=== PATIENT | male | born 1950 | race Caucasian/White ===

== ENCOUNTER 2017-11-12 20:16 | Inpatient (IN) | payer MEDICARE ==
--- NOTE | 2017-11-12 21:34 | PDOC.FPRHP ---
- History of Present Illness Chief Complaint: Defibrillation event, weakness History of Present Illness: This is a 67 year old male with PMH of CAD s/p 3V CABG, HLD, and atrial fibrillation that presents with generalized weakness. 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 Later this evening he was going to pull himself up onto his tractor and was unable to do so. He called his who was able to assist him and take him into the hospital. Earlier that morning, patient received a voicemail from [employer] stating that he had an event noted on his defibrillator monitor. Patient never felt the defibrillator fire and is uncertain of what the monitor recorded at that time. On his way to [facility] after feeling very weak, he received a call from the [employer] asking if he had sought care regarding the defibrillator event. They did not note any new events since that time. Patient had a brain CT performed at [facility] which showed a brain mass. Patient has never had imaging of his brain previously, so it is uncertain how long the mass has been present. There was no notable mass effect. Upon evaluation here at [facility] patient was back to baseline and no longer complaining of any weakness. He states that the weakness was never focal and he only had some light -headedness associated with the weakness. Of note, patient did have a CABG back in 2012 and was relatively asymptomatic at that time with the exception of some weakness. He currently denies any chest pain, shortness of breath, diaphoresis, or fever. Patient follows with Dr. Fontenot from a cardiac and primary care standpoint. He does not currently have a PCP. ED Course: Brain CT performed in outside ED. - Allergies/Adverse Reactions Allergies Allergy/AdvReac Type Severity Reaction Status Date / Time No Known Allergies Allergy Verified 11/12/17 22:59 - Home Medications Medication Instructions Recorded Confirmed Type Aspirin 325 mg PO DAILY 01/21/13 11/12/17 History Carvedilol [Coreg] 25 mg PO DAILY 01/21/13 11/12/17 History Lisinopril 5 mg PO DAILY 01/21/13 11/12/17 History Apixaban [Eliquis] 2.5 mg PO DAILY 11/12/17 11/12/17 History Furosemide [Lasix] 40 mg PO PRN PRN 11/12/17 11/12/17 History Lovastatin 10 mg PO HS 11/12/17 11/12/17 History - History PMHx: CANDACE, CAD s/p 3V CABG, Atrial fibrillation. HFrEF of 25-30% in 2013 PSHx: Defibrillator placement, CABG 3V (2012), Vasectomy, Polypectomy FHx: Early CAD on maternal and paternal side Social: Patient denies tobacco or drug use. He endorses drinking an occasional beer. - Review of Systems General: denies: fever/chills, weight/appetite/sleep changes, night sweats, fatigue Eyes: denies: eye pain, vision changes ENT: denies: nasal congestion, rhinorrhea Respiratory: reports: shortness of breath (with exertion of <40 yards), exercise intolerance. denies: cough, congestion Cardiovascular: reports: edema, orthopnea. denies: chest pain, palpitation, paroxysmal nocturnal dyspnea Gastrointestinal: denies: nausea, vomiting, diarrhea, constipation, abdominal pain Genitourinary: denies: dysuria, polyuria Skin: reports: rashes (lower extremities). denies: lesions, jaundice Musculoskeletal: denies: pain, tenderness, stiffness Neurological: reports: weakness. denies: numbness, syncope, seizure Psychological: denies: anxiety, depression - Vital signs BP: 126/94 HR: 100 RR: 18 Tmax: 98.7 G Pox: 96% on RA Wt: 167.83 kg - Physical Exam Constitutional: NAD, awake, alert and oriented, well developed HEENT: normocephalic and atraumatic, EOMI -HEENT: Conjunctival erythema, poor dentition Neck: supple Heart: no murmurs/rubs/gallops, pulses present -Heart: Irregularly irregular rhythm, 2+ pitting edema bilateral LE's to level of knees Lungs: CTAB, no respiratory distress, good air movement, no rales/rhonchi Abdomen: soft, non-tender, bowel sounds present Musculoskeletal: normal structure, ROM grossly normal Neurological: no focal deficit, CN II-XII intact -Skin: Stasis dermatitis Heme/Lymphatic: no unusual bruising or bleeding, no purpura Psychiatric: normal mood and affect, good judgment and insight, intact recent and remote memory FMR H&P: Results - Labs Lab results: BNP 526 Troponin 0.00-0.09 GFR 65 Glucose 250 BUN 24 Cr 1.16 Na 140 K 4.5 HCO3 27 WBC 8.5 Hg 14.0 Hct 42.0 Platelet 233 - Radiology Interpretation CT scan - head Status: report reviewed by me Additional comment: CT head without contrast performed in outside ED: 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 Differentials include central neurocytoma, meningioma, choroid plexus papilloma, and metastatic disease. Recommend nonemergent MRI brain with contrast to further evaluate. FMR H&P: A/P - Problem List (1) AICD problem Current Visit: Yes Status: Acute Code(s): Z95.810 - PRESENCE OF AUTOMATIC ( IMPLANTABLE) CARDIAC DEFIBRILLATOR (2) Atrial fibrillation Current Visit: Yes Status: Chronic Code(s): I48.91 - UNSPECIFIED ATRIAL FIBRILLATION (3) Brain mass Current Visit: Yes Status: Acute Code(s): G93.9 - DISORDER OF BRAIN, UNSPECIFIED (4) Chronic kidney disease (CKD), stage II (mild) Current Visit: Yes Status: Chronic Code(s): N18.2 - CHRONIC KIDNEY DISEASE, STAGE 2 (MILD) (5) CANDACE (obstructive sleep apnea) Current Visit: Yes Status: Chronic Code(s): G47.33 - OBSTRUCTIVE SLEEP APNEA (ADULT) (PEDIATRIC) (6) HLD (hyperlipidemia) Current Visit: Yes Status: Chronic Code(s): E78.5 - HYPERLIPIDEMIA, UNSPECIFIED (7) CAD (coronary artery disease) Current Visit: Yes Status: Chronic Code(s): I25.10 - ATHSCL HEART DISEASE OF [place] CORONARY ARTERY W/O ANG PCTRS Qualifiers: Coronary Disease-Associated Artery/Lesion type: bypass graft - Plan AICD event - Recorded by [employer], patient contacted - Pt with weakness today, but no other symptoms - Defibrillator did not fire - Nursing communication to call [employer] to have AICD interrogated - Garrett august consulting Dr. 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 Differentials include central neurocytoma, meningioma, choroid plexus papilloma, and metastatic disease. Recommend nonemergent MRI brain with contrast to further evaluate. - Consult neurology in AM for recommendations on how to further proceed with brain mass given CT findings - Patient is self employed and has Medicare, so neurology follow up may be dependent on his insurance - No mass effect noted on CT, no complaints of headaches CANDACE - States had sleep study done and did not require use of CPAP - Not currently on CPAP at this time HLD - Continue statin, consider increasing dose CAD s/p 3V CABG - Continue home medications - Consider increasing dose of statin HFrEF of 25-30% in 2013 - Continue home medications Code status: Full PCP: No PCP, follows with Dr. Fontenot PPx: DVT: On eliquis GI: None Dispo: Admit to telemetry. Anticipate LOS 24-48 hours. FMR H&P: Upper Level - Pertinent history 67 yo CM with PMHx CAD s/p CABG, HFrEF (EF 25-30% 13), A. fib, and AICD placement 2/2 V. tach presented to outside ED due to defibrillator episode and weakness. At 10am this AM, a VM was left by [employer] that his AICD had an episode. Did not get message until this afternoon. Returned call and told they did not know what the problem was, but there was an episode. Pt denied chest pain and endorsed no firing of AICD. He did endorse feelings of generalized body weakness and lightheadedness that started today while working in the [place] with intermittent SOB. Endorsed mild nausea. This ultimately prompted ED visit as was not easing. When had MN leading to CABG in , he endorsed similar symptoms with no chest pain. At outside ED, brain CT showed small brain mass. Denies HAs. Weakness only present today. No neurologic complaints in past. Transferred to [facility] for admission. Dr. Fontenot is his graining press operator and main provider. Has not seen his PCP since . Currently states all symptoms have resolved. - Pertinent findings Gen: alert, laying sitting on edge of bed in no distress CV: irregularly irregular rhythm, no m/r/g Lungs: CTAB, no increased WOB Abd: NT/ND Ext: 2+ pitting edema BLE to knee Neuro: strength 5/5 all extremities, normal gait, normal sensation, CN 2-12 grossly intact Skin: hemosiderin deposition BLE to mid shins; actinic keratosis on both forearms - Plan Date/Time: 11/12/17 6707 1. AICD event. Unclear specific issue. Will have [employer] contacted in AM for more information and possible interrogation. Will speak with Dr. Fontenot about the patient in AM as well. Trend troponins due to hx of similar symptoms during last MN. Admitted to telemetry from ED. Expect 1-2 day stay. 2. Brain mass. New finding on brain CT. R ventricular 1.4cmx2.0cmx2.5cm mass within R ventricle with no mass effect findings. Differential per radiology central neurocytoma, choroid plexus papilloma, meningioma, and metastatic dz. No neurologic symptoms except generalized weakness today only that has already improved. Will speak with neurology about CT read tomorrow to discuss if outpt workup sufficient. Need to determine if pts insurance (Medicare) requires PCP referral or hospital consultation to cover an outpatient specialist appt. Consult neuro in AM if necessary. PT/OT evaluation. 3. HFrEF. Pt scheduled for outpt ECHO on 11/[address] Fontenot. Will hold on ordering now. BNP 526 and BLE edema. Will discuss with Dr. Fontenot about need for inpatient workup. Seems stable. Continue home meds. 4. CAD. Continue home meds. 5. Atrial fibrillation. Continue home meds including eliquis. Rate controlled. 6. HLD. Continue statin. I, Mir Wyatt, have evaluated this patient and agree with findings/plan as outlined by network internship resident. Pertinent changes/additions are listed here. Attending Addendum - Attending Addendum Date/Time: 11/13/17 1598 I personally evaluated the patient and discussed the management with Dr. Early and Dr. Wyatt I agree with the History, Examination, Assessment and Plan documented above with any addition or exceptions noted below. 67 yo male with heart disease (CAD, rEFHF, a fib, HTN, HLD, CANDACE) admitted for possible heart arrhythmia. Patient states a voicemail was left on his phone due to an "event/episode" recorded by his AICD. Patient states he was unaware and asymptomatic. 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 Due to the earlier "event/episode" he became concern and went to ER. On the way to the ER was called again to explain there was an "event/ episode." Patient unsure and there is no current documentation of the event in question. Labs, imaging, and records reviewed from outside facility. Will place in obs. Trend labs. Currently asymptomatic. No significant findings on tele. Consult cards in AM. Will see if Dr. Ventura would like ECHO done in AM due to previously scheduled now that new event recorded on monitoring. Requesting event recordings. Continue home meds. Replace electrolytes as needed. Incidental brain mass on imaging. Asymptomatic. No previous imaging. Multiple possible differentials from findings. Will discuss with neurology vs neuro surg on imminence of follow up. Report indicates non-emergent MRI. Patient with medicare. Would likely need referral, however, reports no PCP since 2013. Will need to establish follow up plan prior to discharge. Francis
[2017-11-12] MEDS ORDERED: Ondansetron ODT 4 MG TAB SL PRN ×2 (22:38→23:47)
[2017-11-12] MEDS ORDERED: Acetaminophen 325 MG TAB PO PRN ×2 (22:38→23:47)
[2017-11-12] MEDS ORDERED: Ondansetron HCl/PF 4 MG/2 ML Vial IVP PRN ×2 (22:38→23:47)
[2017-11-12 22:47] VITALS: BMI 46.5
[2017-11-13 00:50] LABS: CKMB 1.5 ng/mL (0-6.6); Troponin I 0.014 ng/mL (< 0.028)
[2017-11-13] MEDS ORDERED: Furosemide 20 MG TAB PO PRN (00:50)
[2017-11-13 05:40] LABS: #Eosinphils 0.2 thou/uL (0.0-0.7); #Lymphocytes 1.7 thou/uL (1.20-3.40); #Monocytes 0.7 thou/uL (0.11-0.59); #Neutrophils 5.3 thou/uL (1.40-6.50); %Basophils 0.4 % (0.0-1.0); %Eosinophils 1.9 % (0.0-10.0); %Lymphocytes 21.2 % (21.0-51.0); %Monocytes 8.8 % (0.0-10.0); %Neutrophils 67.6 % (42.0-75.0); Hemoglobin 14.3 g/dL (14.0-18.0); Mean Corpuscular HGB CONC 33.5 g/dL (32.0-36.0); Mean Corpuscular Hemoglobin 30.1 pg (27.0-31.0); Mean Corpuscular Volume 89.7 fl (80.0-94.0); Platelet Count 242 thou/uL (130-400); RBC Distribution Width 12.9 % (11.5-14.5); Red Blood Cell (RBC) Count 4.75 mill/uL (4.70-6.10); White Blood Cell (WBC) Count 7.8 thou/uL (4.8-10.8)
[2017-11-13 05:47] LABS: Anion Gap 12 mmol/L (10-20); BUN (Urea Nitrogen) 22 mg/dL (8.4-25.7); Calc. Creatinine Clearance 177 mL/min (70-130); Calcium 9.1 mg/dL (7.8-10.44); Carbon Dioxide 27 mmol/L (23-31); Chloride 102 mmol/L (98-107); Estimated GFR-MDRD 77; Glucose 190 mg/dL (80-115); Magnesium 2.2 mg/dL (1.6-2.6); Potassium 4.3 mmol/L (3.5-5.1); Sodium 137 mmol/L (136-145)
[2017-11-13 05:55] LABS: CKMB 1.4 ng/mL (0-6.6); Troponin I Less than 0.010 ng/mL (< 0.028)
--- NOTE | 2017-11-13 06:12 | PDOC.FM ---
- Subjective Subjective: Maninder Medeiros seen at bedside this morning. He states that he is not feeling weakness like he was yesterday. Reiterated that his AICD did not fire but he was left a voicemail from the [employer] company that he had an event yesterday. The only symptom experienced yesterday was generalized weakness. He denies fever, chills, vision changes, headaches, chest pain, dyspnea, n/v. - Objective MAR Reviewed: Yes Vital Signs & Weight: Vital Signs (12 hours) Temp Pulse Resp BP Pulse Ox 11/13/17 04:00 98.5 F 95 20 112/87 93 L 11/13/17 01:08 95 11/12/17 23:05 98.5 F 102 H 16 11/12/17 22:40 98.5 F 102 H 16 145/92 H 92 L Result Diagrams: 11/13/17 04:43 11/13/17 04:43 <Tony Licea - Last Filed: 11/13/17 07:35> - Objective Vital Signs & Weight: Vital Signs (12 hours) Temp Pulse Resp BP BP Pulse Ox 11/13/17 09:19 102 H 163/79 H 11/13/17 04:00 98.5 F 95 20 112/87 93 L 11/13/17 01:08 95 11/12/17 23:05 98.5 F 102 H 16 11/12/17 22:40 98.5 F 102 H 16 145/92 H 92 L Result Diagrams: 11/13/17 04:43 11/13/17 04:43 <Jp Avalos - Last Filed: 11/13/17 10:37> Phys Exam - Physical Examination Constitutional: NAD HEENT: moist MMs, sclera anicteric Neck: no JVD, supple, full ROM Respiratory: no wheezing, no rales, no rhonchi, clear to auscultation bilateral Cardiovascular: RRR, no significant murmur Gastrointestinal: soft, non-tender, no distention Musculoskeletal: no edema, pulses present Neurological: non-focal, normal sensation, moves all 4 limbs Psychiatric: normal affect, A&O x 3 Skin: no rash, normal turgor <Tony Licea - Last Filed: 11/13/17 07:35> Dx/Plan (1) AICD problem Code(s): Z95.810 - PRESENCE OF AUTOMATIC (IMPLANTABLE) CARDIAC DEFIBRILLATOR Status: Acute (2) Brain mass Code(s): G93.9 - DISORDER OF BRAIN, UNSPECIFIED Status: Acute (3) Atrial fibrillation Code(s): I48.91 - UNSPECIFIED ATRIAL FIBRILLATION Status: Chronic (4) CAD (coronary artery disease) Code(s): I25.10 - ATHSCL HEART DISEASE OF [place] CORONARY ARTERY W/O ANG PCTRS Status: Chronic QualifierTitle: Coronary Disease-Associated Artery/Lesion type: bypass graft (5) Chronic kidney disease (CKD), stage II (mild) Code(s): N18.2 - CHRONIC KIDNEY DISEASE, STAGE 2 (MILD) Status: Chronic (6) HLD (hyperlipidemia) Code(s): E78.5 - HYPERLIPIDEMIA, UNSPECIFIED Status: Chronic (7) CANDACE (obstructive sleep apnea) Code(s): G47.33 - OBSTRUCTIVE SLEEP APNEA (ADULT) (PEDIATRIC) Status: Chronic - Plan Plan: (1) AICD event - Recorded by [employer], patient contacted - Pt with weakness yesterday, but no other symptoms - Defibrillator did not fire - Nursing communication to call [employer] to have AICD interrogated - Will notify 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 Fontenot, of his admission - Scheduled for outpatient echo on 11/20/2017 - Trending troponins due to pt's cardiac history and lack of symptoms when he had CABG in 2012 - Troponins negative X2 so far (2) Atrial fibrillation, chronic - Appears rate controlled - On eliquis for DVT/PE prophylaxis - Monitor on telemetry (3) Brain mass - CT head without contrast performed in outside ED: right ventricular mass overlying foramen of guerrero. Differentials include central neurocytoma, meningioma, choroid plexus papilloma, and metastatic disease. Recommend nonemergent MRI brain with contrast to further evaluate. - Consult neurology in AM for recommendations on how to further proceed with brain mass given CT findings - Patient is self employed and has Medicare, so neurology follow up may be dependent on his insurance - No mass effect noted on CT, no complaints of headaches (4) CANDACE - States had sleep study done and did not require use of CPAP - Not currently on CPAP at this time (5) HLD - Continue statin, consider increasing dose (6) CAD s/p 3V CABG - Continue home medications - Consider increasing dose of statin (7) HFrEF of 25-30% in 2013 - Continue home medications <Tony Licea - Last Filed: 11/13/17 07:35> Attending Addendum - Attending Addendum Date/Time: 11/13/17 1035 I personally evaluated the patient and discussed the management with Dr. Licea. I agree with the History, Examination, Assessment and Plan documented above with any addition or exceptions noted below. Patient reports feeling well this morning. He has been evaluated by cardiology and has been started on Amiodarone for Afib with RVR that was likely the events recorded by his AICD. Will monitor rhythms to see if recurrence and further treatment per cardiology. For his new diagnosis of unspecified brain mass, we will be obtained further imaging this morning to further characterize the lesion. There does not appear to be any mass effect or focal deficits from the mass at this time. Neurology will be consulted to provide input with likely continued follow up as outpatient. <Jp Avalos - Last Filed: 11/13/17 10:37>
[2017-11-13] MEDS ORDERED: Apixaban 5 MG TAB PO SCH ×2 (09:00→21:00)
[2017-11-13] MEDS ORDERED: Prevnar 13-Val Conj/PF 0.5 ML SYRINGE IM ONE (09:00)
[2017-11-13] MEDS: Aspirin 325 MG TAB PO SCH (09:18)
[2017-11-13] MEDS: Lisinopril 5 MG TAB PO SCH (09:19)
[2017-11-13] MEDS: Carvedilol 25 MG TAB PO SCH (09:20)
[2017-11-13] MEDS ORDERED: Amiodarone 200 MG TAB PO SCH ×2 (09:30→11:00)
--- NOTE | 2017-11-13 12:59 | PQF ---
CLINICAL DOCUMENTATION IMPROVEMENT CLARIFICATION FORM: ICD-10 Updated PLEASE DO AN ADDENDUM TO THE PROGRESS NOTE WITH ANY DOCUMENTATION UPDATES OR ADDITIONS AND CARRY THROUGH TO DC SUMMARY. THANK YOU. DATE: 11/13 ATTN: DR. JESSICA NAVARRO / DR. ASHLI MONTGOMERY Please exercise your independent, professional judgment in responding to the clarification form. Clinical indicators are provided on the bottom of this form for your review Please check appropriate box(s): BMI > 40 with associated diagnosis of: (check one) [ x ] Morbid (Severe) Obesity [ ] Due to excess calories [ ] Obesity [ ] Other diagnosis [ ] Unable to determine For continuity of documentation, please document condition throughout progress notes and discharge summary. Thank You. BMI < 19 Under weight 19 - 24.9 Healthy 25.0 - 29.9 Slightly Overweight 30.0 - 34.9 Obese 35.0 - 39.9 Severely Obese 40.0 and Over Morbidly Obese CLINICAL INDICATORS - SIGNS / SYMPTOMS / LABS BMI: 46.5 RISK FACTORS: HTN CAD TREATMENT: HEART HEALTHY DIET USE OF SPECIAL EQUIPMENT: LARGE BP CUFF, LARGE WHEELCHAIR FOR TRANSPORT THANK YOU! Paola (This form is maintained as a part of the permanent medical record) 2014 [employer]. All Rights Reserved Paola Garcia RN, BSN juan [email or web address] Office: [phone] [facility] HOSPITALJames
--- NOTE | 2017-11-13 13:36 | CT ---
CT HEAD WITH AND WITHOUT IV CONTRAST: 11/13/2017 HISTORY: Patient brain mass noted on outside CT examination. COMPARISON: None available. FINDINGS: There is a nonenhancing, rounded mass seen within the anterior aspect of the right lateral ventricle, which measures 2.2 cm x 1.5 cm. This abuts the septum pellucidum and is probably subependymal in or igin. Giving no appreciable enhancement, this may represent a subependymal lesion/subependymoma; how ever, further evaluation with MRI is recommended. There is no evidence of hydrocephalus. There is no evidence of a hemorrhage, acute infarction, mass effect, or midline shift. Mild cerebral volume loss, not unexpected for the patient's age, is present. The visualized paranasal sinuses and mastoid air cells are clear. The calvarial structures are intact. IMPRESSION: Right lateral ventricular mass abutting the septum pellucidum, which does not demonstrate enhancement . 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 While MRI would be the next best stud y of choice, the patient has a left subclavian AICD device in place, which precludes evaluation with MRI. A neurosurgical consultation is recommended for further evaluation. POS: JADA
--- NOTE | 2017-11-13 14:26 | CON ---
DATE OF CONSULTATION: 11/13/2017 CARDIOLOGY CONSULTATION REASON FOR CONSULTATION: Atrial fibrillation with a rapid ventricular rate in the setting of chronic systolic heart failure. HISTORY OF PRESENT ILLNESS: Mr. Medeiros is a 67-year-old gentleman. He underwent bypass surgery in the past. He had severely depressed left ventricular function preoperatively. Subsequently, he unde rwent defibrillator implantation. He also has morbid obesity. He was outside working, doing fairly well, developed weakness and lightheadedness. The symptoms did not improve. He was notified by the defibrillator company ([employer]) that there was some abnormality. He went to the emergency room whe re he was found to be in atrial fibrillation with a rapid rate. The patient remains in atrial fibrillation. As part of his evaluation, he underwent CT scanning of h is head, which did reveal a mass as will be outlined below. The patient is feeling better now. PAST MEDICAL HISTORY: He has a history of unstable angina and congestive heart failure and underwent catheterization in 01/2013. The ejection fraction was severely diminished. He also had renal insuf ficiency. He was found to have 60%-70% proximal LAD lesion, circumflex 100% occlusion recent, right coronary 100% occlusion old, filled faintly. He had increase in diastolic pressure. The patient und erwent successful bypass surgery. The bypass surgery was done successfully by Dr. Montana 01/2013. H e had internal mammary to the LAD, vein graft to a diagonal, vein graft to the obtuse marginal. The right coronary is not bypassable. The patient subsequently underwent defibrillator implantation. The patient was seen by Dr. Barros and in 04/2013 underwent dual-chamber pacemaker defibrillator implantation. The indication was shima estive heart failure with ventricular tachycardia. The patient has done fairly well. He has had severe problem with edema. He continues to have morbid obesity. He has also had venous insufficiency. MEDICATION AT HOME: Included, 1. Lisinopril. 2. Carvedilol. 3. Aspirin. 4. Furosemide. 5. Apixaban, I believe he is on this for DVT prevention. He is on low dose. 6. Lovastatin 10 mg a day. We will need to check the office records. I think he was on a stronger statin dose than that per our records. SOCIAL HISTORY: Does not use tobacco. Has very supportive . REVIEW OF SYSTEMS: CONSTITUTIONAL: No significant weight gain or loss. VISION: No changes. HEARING: No changes. PULMONARY: No cough or wheezing. GASTROINTESTINAL: No nausea, vomiting or diarrhea. SKIN: No rashes. NEUROLOGIC: No unilateral weakness or numbness. PSYCHIATRIC: No unusual depression or anxiety. HEMATOLOGIC: No unusual bruising. GENITOURINARY: No burning with urination. EXTREMITIES: He does have swelling of his lower extremities, chronic. ALLERGIES: None known. PHYSICAL EXAMINATION: GENERAL: This is a 6 feet 3 inches tall, 372 pounds man. BMI is 46.5. VITAL SIGNS: Blood pressure 163/79, pulse 102 radially, at least in the brachial check with the bloo d pressure, but on the rhythm strip, it looks like were more in the 120-130. HEENT: Eyes, sclerae nonicteric. Mouth, mucous membranes are moist. NECK: Supple. No lymphadenopathy. LUNGS: Distant breath sounds. I do not hear wheezing. CARDIAC: Irregular, irregular. No murmur, rub or gallop, but the heart sounds are distant due to ob esity. ABDOMEN: Obese, nontender. EXTREMITIES: Moderate peripheral edema. SKIN: Warm and dry. PSYCHIATRIC: Mood and affect normal. NEUROLOGIC: Grossly normal. LABORATORY AND X-RAY FINDINGS: EKG reveals atrial fibrillation with a rapid ventricular response, ri ght bundle branch block pattern. The troponin levels were negative 0.014, hemoglobin 14.3, potassium 4.3, glucose 190. ASSESSMENT: 1. Atrial fibrillation with a rapid ventricular response. 2. Congestive heart failure, systolic, chronic, ejection fraction has been below 35%. Echocardiogra m done in 2013 revealed an ejection fraction, which was severely diminished, but cannot be measured p recisely, but is estimated at 25%-30%. 3. Right bundle branch block. 4. Also found to have a mass on the CT scan, intracranial. 5. Morbid obesity. PLAN: 1. We will add amiodarone. 2. Would recommend CT scanning of the brain with contrast to further delineate what the mass is or a t least give some idea whether it is safe to anticoagulate him. 3. We will give intravenous diuretics to try to help mobilize some of the fluid. 4. I stressed the importance of weight loss in the past. He unfortunately continues to be extremely obese. 5. Agree with neurologic consult to help sort out what this mass is. May need Neurosurgical consult . 6. Cannot have MRI due to the defibrillator. We will go ahead and order a CT scan with contrast.
[2017-11-13] MEDS ORDERED: Furosemide 40 MG/4 ML VIAL SLOW IVP SCH (15:45)
[2017-11-13] MEDS ORDERED: Potassium Chloride 20 MEQ TAB PO SCH (15:45)
[2017-11-13] MEDS: Amiodarone 200 MG TAB PO SCH ×2 (16:00→21:07)
[2017-11-13] MEDS: Lovastatin 20 MG TAB PO SCH (21:08)
--- NOTE | 2017-11-14 01:29 | CON ---
DATE OF CONSULTATION: 11/13/2017 CONSULTING PHYSICIAN: Hospitalist Service. IMPRESSION: Right intraventricular nonenhancing mass approximately 2 cm in size, which appears to be asymptomatic. Overall, I suspect this will be benign. PLAN: Office followup to monitor the mass with CT scans in every 6 months. HISTORY OF PRESENT ILLNESS: Mr. Medeiros is a 67-year-old man with past history of atrial fibrillatio n, coronary artery disease, congestive heart failure and defibrillator implantation. He was trying t o climb up on his tractor when he felt generally weak. He was concerned that his heart may be having some trouble. He went to the [facility] where a CAT scan was done. The intraventricula r mass was noted and he was referred here. He had a contrast CT done here, which did reveal that the mass was nonenhancing. There is no evidence of obstructive hydrocephalus. He denies any past histo ry of seizures, cognitive changes, focal neurologic symptoms, confusion or any alteration of consciou sness. PAST MEDICAL HISTORY: As listed above. PAST SURGICAL HISTORY: Defibrillator implantation. ALLERGIES: None. MEDICATIONS: Reviewed. SOCIAL HISTORY: No tobacco or alcohol use. FAMILY HISTORY: Noncontributory. REVIEW OF SYSTEMS: Otherwise, negative. PHYSICAL EXAMINATION: GENERAL: He is a rather obese, middle-aged man, sitting at the bedside. HEENT: Pupils are equal and reactive. Conjunctivae clear. NECK: Supple. EXTREMITIES: Moderate edema in the lower extremities. NEUROLOGIC: He is alert and appropriate. His speech is fluent and clear. His exam is nonfocal. No abnormal movements were seen. IMAGING: CT images were reviewed. SUMMARY: I will be happy to follow in this gentlemen's condition and referred him on to Neurosurgery if he develops symptoms.
[2017-11-14 05:23] LABS: #Eosinphils 0.2 thou/uL (0.0-0.7); #Lymphocytes 1.9 thou/uL (1.20-3.40); #Monocytes 0.8 thou/uL (0.11-0.59); #Neutrophils 5.3 thou/uL (1.40-6.50); %Basophils 0.3 % (0.0-1.0); %Eosinophils 1.9 % (0.0-10.0); %Lymphocytes 23.2 % (21.0-51.0); %Monocytes 9.3 % (0.0-10.0); %Neutrophils 65.3 % (42.0-75.0); Hemoglobin 13.6 g/dL (14.0-18.0); Mean Corpuscular HGB CONC 32.2 g/dL (32.0-36.0); Mean Corpuscular Hemoglobin 28.7 pg (27.0-31.0); Mean Corpuscular Volume 89.3 fl (80.0-94.0); Mean Platelet Volume 7.5 fL (7.4-10.4); Platelet Count 227 thou/uL (130-400); RBC Distribution Width 13.1 % (11.5-14.5); Red Blood Cell (RBC) Count 4.74 mill/uL (4.70-6.10); White Blood Cell (WBC) Count 8.2 thou/uL (4.8-10.8)
[2017-11-14 05:51] LABS: Anion Gap 14 mmol/L (10-20); BUN (Urea Nitrogen) 21 mg/dL (8.4-25.7); Calc. Creatinine Clearance 178 mL/min (70-130); Calcium 9.1 mg/dL (7.8-10.44); Carbon Dioxide 26 mmol/L (23-31); Chloride 100 mmol/L (98-107); Estimated GFR-MDRD 77; Glucose 173 mg/dL (80-115); Magnesium 2.1 mg/dL (1.6-2.6); Potassium 4.4 mmol/L (3.5-5.1); Sodium 136 mmol/L (136-145)
--- NOTE | 2017-11-14 06:46 | PDOC.FM ---
- Subjective Subjective: Maninder Medeiros is seen at bedside this morning. He is doing well, there were no acute events overnight. He denies any issues, has no questions or concerns. He was seen by both Dr. Fontenot and Dr. Puentes yesterday. We discussed recommendations from the specialists. He understands the plan. Denies fever, chills, chest pain, palpitations, weakness, lightheadedness. - Objective MAR Reviewed: Yes Vital Signs & Weight: Vital Signs (12 hours) Temp Pulse Resp BP Pulse Ox 11/14/17 04:00 97.7 F 83 20 123/60 95 11/13/17 20:30 98.5 F 77 16 124/66 94 L 11/13/17 20:00 98.5 F 77 16 Weight Weight 168.101 kg I&O: 11/12/17 11/13/17 11/14/17 06:59 06:59 06:59 Intake Total 1250 Output Total 2000 Balance -750 Result Diagrams: 11/14/17 03:55 11/14/17 03:55 <Tony Licea - Last Filed: 11/14/17 06:42> - Objective Vital Signs & Weight: Vital Signs (12 hours) Temp Pulse Resp BP BP Pulse Ox 11/14/17 09:19 86 116/63 11/14/17 09:15 98.5 F 86 18 93 L 11/14/17 04:00 97.7 F 83 20 123/60 95 Weight Weight 168.101 kg I&O: 11/13/17 11/14/17 11/15/17 06:59 06:59 06:59 Intake Total 1250 Output Total 2000 Balance -750 Result Diagrams: 11/14/17 09:07 11/14/17 09:07 <Jp Avalos - Last Filed: 11/14/17 11:08> Phys Exam - Physical Examination Constitutional: NAD HEENT: moist MMs, sclera anicteric Neck: no JVD, supple, full ROM Respiratory: no wheezing, no rales, no rhonchi, clear to auscultation bilateral Cardiovascular: no significant murmur, no rub irregularly irregular rhythm, normal rate Gastrointestinal: soft, non-tender, no distention Musculoskeletal: no edema, pulses present Neurological: non-focal, normal sensation, moves all 4 limbs Psychiatric: normal affect, A&O x 3 Skin: no rash, normal turgor <VinayakFredisTony - Last Filed: 11/14/17 06:42> Dx/Plan (1) AICD problem Code(s): Z95.810 - PRESENCE OF AUTOMATIC (IMPLANTABLE) CARDIAC DEFIBRILLATOR Status: Acute (2) Brain mass Code(s): G93.9 - DISORDER OF BRAIN, UNSPECIFIED Status: Acute (3) Atrial fibrillation Code(s): I48.91 - UNSPECIFIED ATRIAL FIBRILLATION Status: Chronic (4) CAD (coronary artery disease) Code(s): I25.10 - ATHSCL HEART DISEASE OF [place] CORONARY ARTERY W/O ANG PCTRS Status: Chronic QualifierTitle: Coronary Disease-Associated Artery/Lesion type: bypass graft (5) Chronic kidney disease (CKD), stage II (mild) Code(s): N18.2 - CHRONIC KIDNEY DISEASE, STAGE 2 (MILD) Status: Chronic (6) HLD (hyperlipidemia) Code(s): E78.5 - HYPERLIPIDEMIA, UNSPECIFIED Status: Chronic (7) CANDACE (obstructive sleep apnea) Code(s): G47.33 - OBSTRUCTIVE SLEEP APNEA (ADULT) (PEDIATRIC) Status: Chronic - Plan Plan: (1) AICD event - Recorded by [facility], patient contacted - Pt with weakness day of admission, but no other symptoms - Defibrillator did not fire - Cardiology consulted, Dr. Fontenot - Scheduled for outpatient echo on 11/20/2017 - Negative troponins - Cardiology started amiodarone yesterday, patient has been feeling better - Will need to follow up with cardiology on OP basis within next one to two weeks - Likely discharge home today (2) Atrial fibrillation, chronic - Appears rate controlled - On eliquis for DVT/PE prophylaxis - Monitor on telemetry (3) Brain mass - CT head without contrast performed in outside ED: right ventricular mass overlying foramen of guerrero. Differentials include central neurocytoma, meningioma, choroid plexus papilloma, and metastatic disease. Recommend nonemergent MRI brain with contrast to further evaluate. MRI contraindicated due to AICD. 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 Poss referral to neurosurg if patient develops symptoms. (4) CANDACE - States had sleep study done and did not require use of CPAP - Not currently on CPAP at this time (5) HLD - Continue statin (6) CAD s/p 3V CABG - Continue home medications - Consider increasing dose of statin (7) HFrEF of 25-30% in 2013 - Continue home medications <Tony Licea - Last Filed: 11/14/17 06:42> Attending Addendum - Attending Addendum Date/Time: 11/14/17 7007 I personally evaluated the patient and discussed the management with Dr. Licea. I agree with the History, Examination, Assessment and Plan documented above with any addition or exceptions noted below. Patient feels well this morning and desires to go home. He reports that cardiology plans to do what sounds like a CINDY either today or in the morning. He is now controlled with Amiodarone and back on anticoagulation. Brain lesion is likely benign per neurology and will just need outpatient follow up. Awaiting further cardiology recs but nearing point of stability for discharge home. <Jp Avalos - Last Filed: 11/14/17 11:08>
[2017-11-14] MEDS ORDERED: Potassium Chloride 20 MEQ TAB PO SCH (08:00)
[2017-11-14] MEDS ORDERED: Furosemide 40 MG/4 ML VIAL SLOW IVP SCH (08:00)
--- NOTE | 2017-11-14 08:01 | PRG ---
DATE OF SERVICE: 11/14/2017 HISTORY: Mr. Medeiros is doing well. He is sitting up on side of the bed. No chest pain, no chest p ressure, feels well. PHYSICAL EXAMINATION: VITAL SIGNS: Blood pressure is 123/60, pulse is 80, it is irregular. LUNGS: Clear. CARDIAC: Irregular, irregular. ABDOMEN: Obese, nontender. EXTREMITIES: There is moderate edema. The further evaluation of the brain mass looked like it is probably a benign tumor. ASSESSMENT: 1. Congestive heart failure, systolic, chronic, stable. 2. Atrial fibrillation, new onset. 3. Morbid obesity. PLAN: 1. Continue amiodarone. 2. Undergo transesophageal echo and cardioversion tomorrow. I discussed risks including stroke, inj ury to the mouth and teeth. May be able to do the cardioversion through the defibrillator. The etienne ent understands. We will proceed tomorrow if he is still in fibrillation.
[2017-11-14] MEDS ORDERED: Prevnar 13-Val Conj/PF 0.5 ML SYRINGE IM ONE (09:00)
[2017-11-14] MEDS: Apixaban 5 MG TAB PO SCH ×2 (09:19→21:37)
[2017-11-14] MEDS: Lisinopril 5 MG TAB PO SCH (09:19)
[2017-11-14] MEDS: Aspirin 325 MG TAB PO SCH (09:19)
[2017-11-14] MEDS: Amiodarone 200 MG TAB PO SCH ×3 (09:20→21:37)
[2017-11-14] MEDS: Carvedilol 25 MG TAB PO SCH (09:20)
[2017-11-14 09:27] LABS: Hemoglobin 14.6 g/dL (14.0-18.0); Platelet Count 253 thou/uL (130-400)
[2017-11-14] MEDS: Lovastatin 20 MG TAB PO SCH (21:36)
[2017-11-15 04:56] LABS: #Basophils 0.1 thou/uL (0.0-0.2); #Eosinphils 0.2 thou/uL (0.0-0.7); #Lymphocytes 1.8 thou/uL (1.20-3.40); #Monocytes 0.7 thou/uL (0.11-0.59); %Basophils 0.7 % (0.0-1.0); %Neutrophils 65.2 % (42.0-75.0); Hemoglobin 14.5 g/dL (14.0-18.0); Mean Corpuscular HGB CONC 33.1 g/dL (32.0-36.0); Mean Corpuscular Hemoglobin 29.7 pg (27.0-31.0); Mean Corpuscular Volume 89.8 fl (80.0-94.0); Mean Platelet Volume 6.9 fL (7.4-10.4); Platelet Count 230 thou/uL (130-400); RBC Distribution Width 12.8 % (11.5-14.5); Red Blood Cell (RBC) Count 4.88 mill/uL (4.70-6.10); White Blood Cell (WBC) Count 7.7 thou/uL (4.8-10.8)
[2017-11-15 05:17] LABS: Anion Gap 11 mmol/L (10-20); BUN (Urea Nitrogen) 20 mg/dL (8.4-25.7); Calc. Creatinine Clearance 154 mL/min (70-130); Calcium 9.1 mg/dL (7.8-10.44); Carbon Dioxide 30 mmol/L (23-31); Chloride 98 mmol/L (98-107); Estimated GFR-MDRD 66; Glucose 180 mg/dL (80-115); Potassium 4.4 mmol/L (3.5-5.1); Sodium 135 mmol/L (136-145)
--- NOTE | 2017-11-15 08:01 | PDOC.FM ---
- Subjective Subjective: Mr. Medeiros seen at bedside this morning. He is doing well, there were no acute events overnight. Per tele monitor, he continued to be in atrial fibrillation-rate controlled all night. This morning he has no complaints. Questions were answered. He denies any fever, chills, chest pain, palpitations, dyspnea. He is scheduled for CINDY with possible cardioversion this morning. - Objective MAR Reviewed: Yes Vital Signs & Weight: Vital Signs (12 hours) Temp Pulse Resp BP Pulse Ox 11/15/17 04:10 97.9 F 88 19 130/74 98 11/15/17 00:00 98.9 F 78 22 H 110/81 95 Weight Weight 168.101 kg I&O: 11/14/17 11/15/17 11/16/17 06:59 06:59 06:59 Intake Total 1250 1240 Output Total 1999 1100 Balance -750 140 Result Diagrams: 11/15/17 04:17 11/15/17 04:17 <Tony Licea - Last Filed: 11/15/17 08:02> - Objective Vital Signs & Weight: Vital Signs (12 hours) Temp Pulse Resp BP BP Pulse Ox 11/15/17 09:04 132/60 11/15/17 04:10 97.9 F 88 19 130/74 98 11/15/17 00:00 98.9 F 78 22 H 110/81 95 Weight Weight 168.101 kg I&O: 11/14/17 11/15/17 11/16/17 06:59 06:59 06:59 Intake Total 1250 1240 Output Total 1999 1100 Balance -750 140 Result Diagrams: 11/15/17 04:17 11/15/17 04:17 <Jp Avalos - Last Filed: 11/15/17 10:42> Phys Exam - Physical Examination Constitutional: NAD HEENT: moist MMs, sclera anicteric Neck: no JVD, supple, full ROM Respiratory: no wheezing, no rales, no rhonchi, clear to auscultation bilateral Cardiovascular: no significant murmur, no rub irregularly irregular ryhthm, normal rate Gastrointestinal: soft, non-tender, no distention Musculoskeletal: no edema, pulses present Neurological: non-focal, normal sensation, moves all 4 limbs Psychiatric: normal affect, A&O x 3 Skin: no rash, normal turgor <VinayakTony - Last Filed: 11/15/17 08:02> Dx/Plan (1) AICD problem Code(s): Z95.810 - PRESENCE OF AUTOMATIC (IMPLANTABLE) CARDIAC DEFIBRILLATOR Status: Acute (2) Brain mass Code(s): G93.9 - DISORDER OF BRAIN, UNSPECIFIED Status: Acute (3) Atrial fibrillation Code(s): I48.91 - UNSPECIFIED ATRIAL FIBRILLATION Status: Chronic (4) CAD (coronary artery disease) Code(s): I25.10 - ATHSCL HEART DISEASE OF [place] CORONARY ARTERY W/O ANG PCTRS Status: Chronic QualifierTitle: Coronary Disease-Associated Artery/Lesion type: bypass graft (5) Chronic kidney disease (CKD), stage II (mild) Code(s): N18.2 - CHRONIC KIDNEY DISEASE, STAGE 2 (MILD) Status: Chronic (6) HLD (hyperlipidemia) Code(s): E78.5 - HYPERLIPIDEMIA, UNSPECIFIED Status: Chronic (7) CANDACE (obstructive sleep apnea) Code(s): G47.33 - OBSTRUCTIVE SLEEP APNEA (ADULT) (PEDIATRIC) Status: Chronic - Plan Plan: (1) AICD event - Recorded by [employer], patient contacted - Pt with weakness day of admission, but no other symptoms - Defibrillator did not fire - Cardiology consulted, Dr. Fontenot - Negative troponins - Cardiology started amiodarone 2 days ago, patient has been feeling better - Patient cleared for discharge by cardiology this morning - Will need close follow up with Dr. Fontenot outpatient (2) Atrial fibrillation, chronic - Appears rate controlled - On eliquis for DVT/PE prophylaxis - Monitor on telemetry (3) Brain mass - CT head without contrast performed in outside ED: right ventricular mass overlying foramen of guerrero. Differentials include central neurocytoma, meningioma, choroid plexus papilloma, and metastatic disease. Recommend nonemergent MRI brain with contrast to further evaluate. MRI contraindicated due to AICD. 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 Poss referral to neurosurg if patient develops symptoms. (4) CANDACE - States had sleep study done and did not require use of CPAP - Not currently on CPAP at this time (5) HLD - Continue statin (6) CAD s/p 3V CABG - Continue home medications - Consider increasing dose of statin (7) HFrEF of 25-30% in 2013 - Continue home medications <Tony Licea - Last Filed: 11/15/17 08:02> Attending Addendum - Attending Addendum Date/Time: 11/15/17 1040 I personally evaluated the patient and discussed the management with Dr. Licea. I agree with the History, Examination, Assessment and Plan documented above with any addition or exceptions noted below. Patient doing well this morning. He converted to NSR overnight. It sounds like Cardiology has deferred on cardioversion and CINDY. Will clarify that with them and then anticipate discharge later today. <Jp Avalos - Last Filed: 11/15/17 10:42>
--- NOTE | 2017-11-15 08:39 | PRG ---
DATE OF SERVICE: 11/15/2017 HISTORY: Mr. Medeiros feels better today. He converted to sinus rhythm spontaneously earlier today. He said he felt better immediately. No chest pain or pressure. PHYSICAL EXAMINATION: VITAL SIGNS: Blood pressure 130/74, pulse 88 regular. LUNGS: Clear. CARDIAC: Normal S1, normal S2. ABDOMEN: Soft, nontender. EXTREMITIES: No edema. ASSESSMENT: 1. Paroxysmal atrial fibrillation initially with a very rapid rate, resulting in hospitalization. 2. Morbid obesity. 3. Previous pacemaker defibrillator. 4. Hypertension. 5. Hypercholesterolemia. PLAN: 1. He is to go home on amiodarone 400 mg twice a day for 2 weeks, then 200 mg once a day. 2. Lisinopril 10 mg daily. 3. Coreg 25 mg twice a day. 4. Torsemide 20 mg a day. 5. Aspirin 81 or 325 mg a day. 6. Eliquis 5 mg twice a day. The patient should bring all medicines with him to the followup. In addition, the patient was found to have a tumor intracranial that is thought to be likely a benign finding that Dr. Puentes recommend ed repeat imaging in 6-12 months. The patient has been cautioned about the importance of staying out of the sun with the amiodarone or protecting himself. Also, the importance of monitoring, there is some potential risk of pulmonary toxicity which can be severe with the amiodarone. I discussed this with him, if he has trouble breathing he needs to let us know. However, with his history of congesti ve heart failure there is not likely to be any other safe and effective medicines for the fibrillatio n. If he has recurrence would strongly consider ablation as he feels much better and would probably do much better as long as he maintains sinus rhythm.
[2017-11-15] MEDS ORDERED: Lisinopril 10 MG TAB PO SCH (09:00)
[2017-11-15] MEDS ORDERED: Amiodarone 200 MG TAB PO SCH (09:00)
[2017-11-15] MEDS ORDERED: Ezetimibe 10 MG TAB PO SCH (09:00)
[2017-11-15] MEDS: Aspirin 325 MG TAB PO SCH (09:03)
[2017-11-15] MEDS: Apixaban 5 MG TAB PO SCH (09:03)
--- NOTE | 2017-11-15 11:06 | DIS-2 ---
DATE OF ADMISSION: 11/12/2017 DATE OF DISCHARGE: 11/15/2017 RESIDENT: Tony Licea M.D. ADMITTING ATTENDING: Dr. Flory Collins. DISCHARGE ATTENDING: Dr. Jp Avalos. CONSULTATIONS 1. Cardiology, Dr. Fontenot on 11/13/2017. 2. Neurology, Dr. Puentes on 11/13/2017. PROCEDURES: Brain CT on 11/13/2017, impression, right lateral ventricular mass abutting the septum p ellucidum, which does not demonstrate enhancement. 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 While MRI would be the next best study of choice, the patient has a left subclavian AICD device in place, which precludes evaluation with MRI. A neurosurgical consultation was recommended f or further evaluation. PRIMARY DIAGNOSES: 1. AICD event. 2. Weakness. 3. Atrial fibrillation. 4. New brain mass. 5. Coronary artery disease, status post 3-vessel coronary artery bypass graft. 6. Obstructive sleep apnea. 7. Hyperlipidemia. DISCHARGE MEDICATIONS: 1. Amiodarone 400 mg p.o. b.i.d. for 2 weeks, followed by 200 mg of amiodarone p.o. daily. 2. Lisinopril 10 mg p.o. daily. 3. Torsemide 20 mg p.o. daily. 4. Aspirin 325 mg p.o. daily. 5. Lovastatin 10 mg p.o. at bedtime. HISTORY OF PRESENT ILLNESS AND HOSPITAL COURSE: Mr. Maninder Medeiros is a 67-year-old male w ith past medical history of coronary artery disease, status post 3-vessel CABG, hyperlipidemia, and a trial fibrillation who presented with generalized weakness. 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 As the day progressed, he was unable to pull himself up into his tractor. He called his who was able to assist him and take him to the hospital. Gerard ier that morning, the patient received a voicemail from the [employer] stating that he had an event noted on his defibrillator monitor. The patient never felt the defibrillator fire and is uncertain of what the monitor recorded. He was sent to [facility] from [facility]. The patien t had a brain CT performed in [place], which showed a brain mass. The patient has never had any imag ing done of the brain previously, so it is uncertain how long the mass has been there. There was no notable mass effect on CT. Upon evaluation at [place], the patient was back to his baseline in th e ED and no longer complained of weakness. At last stated that the weakness was never focal and he o nly had some lightheadedness associated with his generalized weakness. He currently denies any chest pain, shortness of breath, diaphoresis or fever. The patient follows with Dr. Fontenot. From Cardiol ogy and primary care standpoint, he does not currently have a PCP. On admission, vitals were stable and within normal limits. Lab results, he had a BNP of 526. Negative troponin. CT of the head show ed a right ventricular mass 14 x 20 x 25 mm overlying the foramen of Monro. Differentials include ce ntral neurocytoma, meningioma, choroid plexus papilloma and metastatic disease. The patient was admi tted for AICD event. Patient's defibrillator was interrogated. Dr. Fontenot, the patient's cardiologi st was consulted and Neurology, Dr. Puentes was consulted for the brain mass. The patient was starte d on statin and aspirin and continued on his normal blood pressure medications. Dr. Fontenot saw the p atjenni on 11/13/2017 and started on amiodarone. Recommended CT scanning of the brain with contrast t o further delineate the mass and to give an idea of whether it is safe to coagulate him. The patient cannot have MRI due to the AICD. Dr. Puentes saw the patient on 11/13/2017, reviewed the CT images, saw right intraventricular nonenhancing mass approximately 2 cm in size and he recommends that the p atient should have outpatient followup to monitor the mass with CT scans every 6 months and to see Ne urosurgery if he ever develops symptoms. The patient remained in rate controlled atrial fibrillation for most of his admission. Dr. Fontenot planned to have patient undergo transesophageal echo with car dioversion on 11/15/2017; however, that morning, the patient spontaneously converted into normal sinu s rhythm. Dr. Fontenot saw the patient on 11/15/2017 and cleared the patient for discharge with instru ctions to follow up with him outpatient. He wants the patient to continue on amiodarone as directed by himself, Dr. Fontenot and continue lisinopril 10 mg daily, Coreg 25 mg twice a day, Torsemide 20 mg a day, aspirin 81 mg a day, Eliquis 5 mg twice a day. The patient understood instructions and stated that he will follow up with Dr. Fontenot in 1-2 weeks. He also was instructed to follow up with Dr. Cindy tanner in 2-3 weeks for routine followup for hospital admission and monitoring of his brain mass. Th e patient was in agreement with the plan. He was stable for discharge on 11/15/2017. DISPOSITION: Stable. 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 Puentes with Neurology. DISCHARGE INSTRUCTIONS: 1. Location: Home. 2. Diet: Heart healthy. 3. Activity: As tolerated. 4. Followup: Follow up with Dr. Fontenot in 2-3 weeks and follow up with Dr. Puentes in 2-3 weeks.
[2017-11-15 13:03] VITALS: TEMP 98.7
[2017-11-15 14:31] VITALS: BP 129/61
[2017-11-15] MEDS ORDERED: Carvedilol 25 MG TAB PO SCH (17:00)
[2017-11-16] MEDS ORDERED: Torsemide 20 MG TAB PO SCH (09:00)
== END 2017-11-15 11:56 | disposition home or self-care (01) | DRG 309 ==
LOC: ERS 20:16 → 2NO 21:21
PROVIDERS: ADMIT Student in an Organized Health Care Education/Training Program; ATTEND Student in an Organized Health Care Education/Training Program
DX: I48.0 Paroxysmal atrial fibrillation (principal); I50.22 Chronic systolic (congestive) heart failure; Z68.42 Body mass index [BMI] 45.0-49.9, adult; I13.0 Hypertensive heart and chronic kidney disease with heart failure and stage 1 through stage 4 chronic kidney disease, or unspecified chronic kidney disease; E66.01 Morbid (severe) obesity due to excess calories; E78.00 Pure hypercholesterolemia, unspecified; N18.2 Chronic kidney disease, stage 2 (mild); D43.0 Neoplasm of uncertain behavior of brain, supratentorial; G47.33 Obstructive sleep apnea (adult) (pediatric); E78.5 Hyperlipidemia, unspecified; I25.10 Atherosclerotic heart disease of native coronary artery without angina pectoris; I45.10 Unspecified right bundle-branch block; Z95.1 Presence of aortocoronary bypass graft; Z79.82 Long term (current) use of aspirin; Z79.899 Other long term (current) drug therapy; Z95.810 Presence of automatic (implantable) cardiac defibrillator
CPT/HCPCS: 36415; 70470; 80048; 82553; 83735; 84484; 85025; 93005; A4216; G8978-GP-CJ; G8979-GP-CJ; G8980-GP-CJ; G8987-GO-CI; G8988-GO-CI; G8989-GO-CI; J1940

== ENCOUNTER 2018-01-31 13:08 | Outpatient (CLI) | payer MEDICARE ==
--- NOTE | 2018-01-31 15:01 | CT ---
CT HEAD WITH AND WITHOUT CONTRAST: Technique: Multiple contiguous axial images were obtained through the head with pre and post contrast enhancement. Indications: Follow up brain tumor. Comparison: 11-13-17. That exam described an intraventricular mass in the right lateral ventricle. FINDINGS: The soft tissue intraventricular mass in the right lateral ventricle is again noted. This mass contin ues to measure approximately 2.0 cm AP dimension and is unchanged in size and appearance. There is no significant enhancement identified. Ventricular size is within normal range. There is no evidence of parenchymal hemorrhage, infarct, or mass. No abnormal enhancement. IMPRESSION: Intraventricular mass in the right lateral ventricle is stable in appearance when compared to 11-13-17 exam. POS: [facility]
== END 2018-01-31 13:09 | disposition home or self-care (01) ==
LOC: TBSIIMAG 13:08
PROVIDERS: ATTEND Neurological Surgery
DX: C71.9 Malignant neoplasm of brain, unspecified (principal); G93.89 Other specified disorders of brain
CPT/HCPCS: 70470; 82565

== ENCOUNTER 2019-07-15 12:52 | Outpatient (CLI) | payer MEDICARE ==
--- NOTE | 2019-07-15 13:30 | CT ---
Head CT without contrast 07/15/2019: COMPARISON: 01/31/2018 and 11/13/2017 HISTORY: Brain tumor TECHNIQUE: Axial CT imaging at 5 mm intervals from vertex through skull base without contrast FINDINGS: There is an intraventricular mass within the anterior aspect of the right lateral ventricle which measures 1.8 x 1.9 cm, not significantly changed when compared to prior imaging. This mass is isointense to the adjacent brain parenchyma and demonstrates no internal calcification. No intracr anial hemorrhage, midline shift, or mass effect. Ventricular size and configuration is unchanged when compared to prior imaging. There is mild mucosal thickening of the left maxillary sinus. No acute osseous abnormality. IMPRESSION: Stable nonspecific isodense intraventricular mass lesion anteriorly within the right late ral ventricle. 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
== END 2019-07-15 12:53 | disposition home or self-care (01) ==
LOC: TBSIIMAG 12:52
PROVIDERS: ATTEND Neurological Surgery
DX: D49.6 Neoplasm of unspecified behavior of brain (principal); G93.9 Disorder of brain, unspecified
CPT/HCPCS: 70450

== ENCOUNTER 2019-08-07 07:34 | Day surgery (SDC) | payer MEDICARE ==
[2019-08-07 06:32] VITALS: BMI 48.8
--- NOTE | 2019-08-07 10:01 | CT ---
CT LUMBAR MYELOGRAM: INDICATIONS: Low back pain with concern for neurogenic claudication COMPARISON: None. TECHNIQUE: Multiple CT images were obtained of the lumbar spine following the intrathecal administration of an I sovue-200 Msolution. Please see the lumbar myelogram for details concerning the injection technique. Axial, coronal, and sagittal reformatted images were constructed from the raw data. FINDINGS: Visualized retroperitoneal and paravertebral soft tissues: There are mild vascular calcifications see n involving the visualized vasculature. No pathologically enlarged lymph nodes are evident. Spinal alignment: Normal Spinal instrumentation or postsurgical change: None At L5-S1, there is moderate to severe facet joint degenerative change. There is a broad-based disc os teophyte complex with facet hypertrophy inducing moderate to severe bilateral neural foraminal narrowing.. At L4-5, there is vacuum disc phenomenon. There is a broad-based disc bulge with facet hypertrophy in ducing mild central canal narrowing with moderate to severe right and moderate left neural foraminal narrowing. At L3-4, there is vacuum disc phenomenon at L3-4. There is a broad-based disc osteophyte complex with facet hypertrophy and ligamentum flavum hypertrophy inducing severe central canal narrowing. There is moderate to severe bilateral neural foraminal narrowing due to facet joint degenerative change and a broad-based disc osteophyte complex. At L2-3, there is a broad-based disc osteophyte complex with facet hypertrophy inducing moderate bila teral neural foraminal narrowing. Small bone island is seen within the left aspect of the L2 vertebral body. There is mild central canal narrowing at this level. At L1-L2, there is a broad-based disc bulge with facet hypertrophy inducing moderate left and mild ri ght neural foraminal narrowing. There is mild central canal narrowing at this level. At T12-L1, there is a broad-based disc bulge but no appreciable central canal or neural foraminal katya rowing. There is chronic appearing wedging of T12 some which may be physiologic. IMPRESSION: 1. Severe multilevel spondylosis of the lumbar spine. 2. Severe central canal narrowing at L3-4 due to broad-based disc osteophyte complex, ligamentum flav um hypertrophy and facet hypertrophy. There is moderate to severe bilateral neural foraminal narrowing at this level. 3. Mild central canal narrowing at L4-5. Moderate to severe right and moderate left neural foraminal narrowing at L4-5. 4. Moderate to severe bilateral neural foraminal narrowing at L5-S1. 5. Moderate bilateral neural foraminal narrowing at L2-3 with mild central canal narrowing. 6. Moderate left and mild right neural foraminal narrowing at L1-L2 with mild central canal narrowing .
--- NOTE | 2019-08-07 10:11 | CT ---
CT-guided lumbar myelogram INDICATION: Concern for lumbar neurogenic claudication TECHNIQUE: Informed consent was obtained. For patient comfort issues the procedure was performed in [facility] CT suite for CT guided lumbar myelogram. Site overlying the right aspect of the L4-5 interlaminar space was marked. Site was prepped and draped in the usual sterile fashion. Buffered 1% lidocaine was measured overlying subcutaneous tissues. Under CT fluoroscopic guidance, a 22-gauge 15 cm Chiba needle was guided down into the thecal sac. There is spontaneous return of normal appeari ng CSF fluid. Following this 10 cc of Isovue-200 M was administered within the thecal sac. There is verification of intrathecal placement of contrast by CT. The inner stylette was replaced within the n eedle and the needle was removed. The site was then cleansed and bandage. Patient tolerated the procedure without difficulty. FINDINGS: On the preprocedure CT images there is vascular calcification of the abdominal aorta. There is a 3.2 x 2 cm soft tissue mass centered within the mesentery with associated central calcification. IMPRESSION: 1. Successful CT-guided lumbar myelogram. 2. Incidental finding of a soft tissue mesenteric mass with associated calcifications. Differential c onsiderations include sclerosing mesenteritis, findings of prior granulomatous disease or possibly carcinoid tumor. Entities such as lymphoma is not excluded. Dedicated CT of the abdomen and pelvis wi th and without contrast is recommended for additional characterization.
--- NOTE | 2019-08-07 10:15 | RAD ---
LUMBAR SPINE 2 VIEWS: HISTORY: Lumbar stenosis with neurogenic claudication. FINDINGS: Severe multilevel disk-osteophytosis of the visualized lumbar spine and lower thoracic spine with a t ransitional vertebra at the lumbosacral region with partial lumbarization of S1. Severe facet arthro sis. No evidence for acute fracture or dislocation. IMPRESSION: Severe spondylosis. POS: OFF
--- NOTE | 2019-08-07 16:54 | ULT ---
LOWER EXTREMITY ARTERIAL EVALUATION USING DOPPLER WAVEFORM ANALYSIS AND SEGMENTAL LIMB PRESSURES 08/07/19 Waveforms are relatively well preserved in both lower extremities at the femoral, popliteal and pedal levels with an ankle-arm index of about 1.2 bilaterally. Toe-brachial index is somewhat diminished o n the left as compared to the right. Overall, circulation is well preserved and this study would probably preclude any significant vascula r claudication.
== END 2019-08-07 10:20 | disposition home or self-care (01) ==
LOC: RAD 07:34
PROVIDERS: ATTEND Neurological Surgery
PROC: B02B1ZZ Computerized Tomography (CT Scan) of Spinal Cord using Low Osmolar Contrast (ICD-10-PCS; principal; 2019-08-07)
DX: M48.062 Spinal stenosis, lumbar region with neurogenic claudication (principal); M47.816 Spondylosis without myelopathy or radiculopathy, lumbar region; I25.10 Atherosclerotic heart disease of native coronary artery without angina pectoris; M79.604 Pain in right leg; M79.605 Pain in left leg; D49.6 Neoplasm of unspecified behavior of brain; Z79.01 Long term (current) use of anticoagulants; Z79.82 Long term (current) use of aspirin; Z79.899 Other long term (current) drug therapy
CPT/HCPCS: 72100; 72131; 72132; 77002; 93922

== ENCOUNTER 2019-08-18 13:54 | Outpatient (CLI) | payer MEDICARE ==
--- NOTE | 2019-08-18 14:48 | CT ---
Exam: Abdomen CT with and without contrast Pelvic CT with and without contrast HISTORY: Abnormal calcification in the mesentery noted on previous CT. Incomplete characterization an d evaluation. COMPARISON: 08/07/2019. FINDINGS: Abdomen CT: Lung bases are clear. Heart is enlarged. No significant pericardial fluid. Visualized aorta has a normal caliber. No periao rtic fat stranding. Portal vein is limited in evaluation due to arterial phase imaging. Gallbladder is unremarkable. Slightly increased hypoattenuation of the liver likely due to fatty infiltration. No enhancing masses . Spleen, pancreas and adrenal glands have appropriate attenuation and enhancement. Symmetric enhancement of the kidneys. Bilaterally, no obstructive uropathy. Gastric mucosa, duodenum and multiple normal caliber small bowel loops are identified. Redemonstration of a soft tissue mass in the right abdominal mesentery with central hyperdensity, com patible with calcification. This mass measured 1.7 x 3.8 cm (previously measuring 2.0 x 3.3 cm). No mesenteric lymphadenopathy, free air or free fluid. Pelvis CT: No mass, lymphadenopathy, or free air. No lytic or blastic lesions in the osseous structures. IMPRESSION: Redemonstration of a soft tissue mass with calcifications. Differential consideration as stated in th e initial report. Favored diagnosis is carcinoid tumor until proven otherwise. Oncological consultation is recommended. Transcribed Date/Time: 08/18/2019 2:56 PM
[2019-08-18] MEDS ORDERED: Iopamidol 370 76% 100 ML VIAL ONE (15:53)
== END 2019-08-18 13:55 | disposition home or self-care (01) ==
LOC: BICCT 13:54
PROVIDERS: ATTEND Neurological Surgery
DX: R19.00 Intra-abdominal and pelvic swelling, mass and lump, unspecified site (principal)
CPT/HCPCS: 74178; 82565; Q9967

== ENCOUNTER 2019-08-20 12:36 | Outpatient (CLI) | payer MEDICARE ==
--- NOTE | 2019-08-20 13:54 | RAD ---
EXAM: Chest 2 views: HISTORY: Preoperative radiograph COMPARISON: None. FINDINGS: There is an enlarged cardiomediastinal silhouette. The patient is status post sternotomy. There is a pacemaker with its leads in the right atrium and ventricle. There is no evidence of consolidation, mass, or pleural effusion. Degenerative changes are seen in the spine. IMPRESSION: No evidence of acute cardiopulmonary disease
[2019-08-20 14:06] LABS: #Eosinphils 0.1 thou/uL (0.0-0.7); #Lymphocytes 1.2 thou/uL (1.20-3.40); #Neutrophils 8.3 thou/uL (1.40-6.50); %Basophils 0.2 % (0.0-1.0); %Eosinophils 0.8 % (0.0-10.0); %Lymphocytes 11.6 % (21.0-51.0); %Neutrophils 78.4 % (42.0-75.0); Hemoglobin 15.2 g/dL (14.0-18.0); Mean Corpuscular HGB CONC 34.1 g/dL (32.0-36.0); Mean Corpuscular Hemoglobin 30.8 pg (27.0-31.0); Mean Corpuscular Volume 90.2 fL (78.0-98.0); Mean Platelet Volume 7.5 fL (7.4-10.4); Platelet Count 181 thou/uL (130-400); RBC Distribution Width 13.1 % (11.5-14.5); Red Blood Cell (RBC) Count 4.93 mill/uL (4.70-6.10); White Blood Cell (WBC) Count 10.6 thou/uL (4.8-10.8)
[2019-08-20 14:34] LABS: Anion Gap 14 mmol/L (10-20); BUN (Urea Nitrogen) 32 mg/dL (8.4-25.7); Calc. Creatinine Clearance 0 mL/min (70-130); Calcium 8.7 mg/dL (7.8-10.44); Carbon Dioxide 22 mmol/L (23-31); Chloride 103 mmol/L (98-107); Estimated GFR-MDRD 45; Glucose 198 mg/dL (80-115); Potassium 4.3 mmol/L (3.5-5.1); Sodium 135 mmol/L (136-145)
== END 2019-08-20 12:37 | disposition home or self-care (01) ==
LOC: LABBT 12:36
PROVIDERS: ATTEND Specialist
DX: Z01.818 Encounter for other preprocedural examination (principal); K63.89 Other specified diseases of intestine
CPT/HCPCS: 71046; 80048; 85025; 93005; 93010

== ENCOUNTER 2019-09-15 07:42 | Observation (INO) | payer MEDICARE ==
[2019-09-12 11:51] VITALS: BMI 45.0
[2019-09-15 08:39] LABS: #Eosinphils 0.1 thou/uL (0.0-0.7); #Lymphocytes 1.6 thou/uL (1.20-3.40); #Monocytes 0.6 thou/uL (0.11-0.59); #Neutrophils 4.8 thou/uL (1.40-6.50); %Basophils 0.1 % (0.0-1.0); %Eosinophils 1.3 % (0.0-10.0); %Monocytes 8.7 % (0.0-10.0); %Neutrophils 67.9 % (42.0-75.0); Hemoglobin 14.9 g/dL (14.0-18.0); Mean Corpuscular HGB CONC 32.3 g/dL (32.0-36.0); Mean Corpuscular Hemoglobin 28.9 pg (27.0-31.0); Mean Corpuscular Volume 89.7 fL (78.0-98.0); Mean Platelet Volume 7.2 fL (7.4-10.4); Platelet Count 175 thou/uL (130-400); RBC Distribution Width 12.9 % (11.5-14.5); Red Blood Cell (RBC) Count 5.15 mill/uL (4.70-6.10); White Blood Cell (WBC) Count 7.1 thou/uL (4.8-10.8)
[2019-09-15 09:01] LABS: Anion Gap 13 mmol/L (10-20); BUN (Urea Nitrogen) 19 mg/dL (8.4-25.7); Calc. Creatinine Clearance 128 mL/min (70-130); Calcium 9.2 mg/dL (7.8-10.44); Carbon Dioxide 25 mmol/L (23-31); Chloride 103 mmol/L (98-107); Estimated GFR-MDRD 56; Glucose 142 mg/dL (80-115); Potassium 4.5 mmol/L (3.5-5.1); Sodium 136 mmol/L (136-145)
[2019-09-15] MEDS ORDERED: Fentanyl 100 MCG/2 ML VIAL ONE (10:39)
[2019-09-15] MEDS ORDERED: Ketamine 50 MG/ML (10ML VIAL) ONE (10:40)
[2019-09-15] MEDS ORDERED: Rocuronium Bromide 10 MG/ML (10ML VIAL) ONE (11:29)
[2019-09-15] MEDS ORDERED: PHENYLEPHRINE-NS 100 MCG/ML 10 ML SYRINGE ONE (11:29)
[2019-09-15] MEDS ORDERED: Lidocaine 1% PF 5 ML VIAL ONE (11:29)
[2019-09-15] MEDS ORDERED: Esmolol 100 MG/10 ML VIAL ONE (11:29)
[2019-09-15] MEDS ORDERED: Glycopyrrolate 0.2 MG/ML 5 ML SYRINGE ONE (11:29)
[2019-09-15] MEDS ORDERED: PROPOFOL 200 MG/20 ML VIAL ONE (11:29)
[2019-09-15] MEDS ORDERED: Ondansetron PF 4 MG/2 ML Vial ONE (11:29)
[2019-09-15] MEDS ORDERED: Phenylephrine 10 MG/ML VIAL ONE (12:21)
[2019-09-15] MEDS ORDERED: Ondansetron HCl/PF 4 MG/2 ML Vial IVP PRN (13:11)
[2019-09-15] MEDS ORDERED: Promethazine HCl 25 MG/ML VIAL SLOW IVP PRN (13:11)
[2019-09-15] MEDS ORDERED: Promethazine HCl 25 MG/ML VIAL IM PRN ×2 (13:11→13:20)
--- NOTE | 2019-09-15 13:11 | OP ---
DATE OF PROCEDURE: 09/15/2019 CITY DIRECTOR: Iens Medina PA-C PROCEDURE PERFORMED: L3-L4 laminectomy, posterolateral arthrodesis, demineralized bone matrix, local morselized autograft. DESCRIPTION OF PROCEDURE: The patient was brought to the operating room and intubated. He was rolled in a prone position on gel-filled chest rolls. The patient had an extremely large body habitus, which made the exposure and the procedure extraordinarily difficult. He was also considered high risk by anesthesia. After we had exposed L3-L4, we performed L3-L4 laminectomy, with some difficulty, however, a complete decompression was achieved. Given the patient's body habitus and the difficulty with exposure, I elected not to attempt to place pedicle screws, but we did prepare the posterolateral surfaces for the purpose of arthrodesis and placed a combination of demineralized bone matrix and local morselized autograft over these surfaces for the purpose of onlay fusion. The wound was then extensively irrigated and MAC hemostasis was secured. Vancomycin powder was applied and the wound was closed in anatomic layers over drain. Job ID: [id number]
[2019-09-15] MEDS ORDERED: HYDROcodone/Acetaminophen 10/325 mg Tablet PO PRN (13:20)
[2019-09-15] MEDS ORDERED: diphenhydrAMINE 25 MG CAP PO PRN (13:20)
[2019-09-15] MEDS ORDERED: Morphine 2 MG/ML SYRINGE SLOW IVP PRN (13:20)
[2019-09-15] MEDS ORDERED: Promethazine HCl 12.5 MG SUPP PR PRN (13:20)
[2019-09-15] MEDS ORDERED: Milk Of Magnesia 30 ML UDCUP PO PRN (13:20)
[2019-09-15] MEDS ORDERED: Mag-Al 1200 mg/1200 mg/30 ML UDCUP PO PRN (13:20)
[2019-09-15] MEDS ORDERED: Ondansetron PF 4 MG/2 ML Vial IM PRN (13:20)
[2019-09-15] MEDS ORDERED: Morphine 4 MG/ML VIAL SLOW IVP PRN (13:20)
[2019-09-15] MEDS ORDERED: diphenhydrAMINE 50 MG/ML VIAL IVP PRN (13:20)
[2019-09-15] MEDS ORDERED: traMADol HCl 50 MG TAB PO PRN ×2 (13:20)
[2019-09-15] MEDS ORDERED: tiZANidine HCl 4 MG TAB PO PRN (13:20)
[2019-09-15] MEDS ORDERED: Promethazine 25 MG TAB PO PRN (13:20)
[2019-09-15] MEDS: CEFAZOLIN 2 GM in Premix Bag 1 BAG IVPB SCH (17:26)
[2019-09-15] MEDS: HYDROcodone/Acetaminophen 10/325 mg Tablet PO PRN ×2 (17:28→22:00)
[2019-09-15] MEDS: Sodium Chloride 0.9% 1,000 ML IV SCH (17:31)
--- NOTE | 2019-09-15 17:35 | PDOC.HOSPP ---
- Subjective Encounter Date: 09/15/19 Encounter Time: 17:33 Subjective: Patient seen and examined. No new complaints. Denies any chest pain, sob, LE weakness. s/p laminectomy L3-L4. Consulted for medical management. - Objective Vital Signs & Weight: Weight Weight 360 lb Result Diagrams: 09/15/19 08:32 09/15/19 08:32 EKG Reviewed by me: Yes (09/15/2019) Hospitalist ROS - Review of Systems Constitutional: denies: fever, chills, sweats, weakness, malaise, other Respiratory: denies: cough, dry, shortness of breath, hemoptysis, SOB with excertion, pleuritic pain, sputum, wheezing, other Cardiovascular: denies: chest pain, palpitations, orthopnea, paroxysmal noc. dyspnea, edema, light headedness, other Gastrointestinal: denies: nausea, vomiting, abdominal pain, diarrhea, constipation, melena, hematochezia, other Neurological: denies: weakness, numbness, incoordination, change in speech, confusion, seizures, other - Medication Medications: Active Medications Generic Name Dose Route Start Last Admin Trade Name Freq PRN Reason Stop Dose Admin Hydrocodone Bitart/Acetaminophen 2 tab 09/15/19 13:20 09/15/19 17:28 [place] 10/325 PO 2 tab Q4H PRN Administration PAIN (4-6) Sodium Chloride 1,000 mls @ 75 mls/hr 09/15/19 13:20 09/15/19 17:31 Normal Saline 0.9% IV Not Given .[id number] KARIE Cefazolin Sodium/Dextrose 2 gm 50 mls @ 100 mls/hr 09/15/19 17:00 09/15/19 17 :26 / Device IVPB 50 mls 0100,0900,1700 KARIE Administration - Exam General Appearance: NAD, awake alert General - other findings: morbidly obese Eye: anicteric sclera Heart: RRR, no murmur, no gallops, no rubs, normal peripheral pulses Heart - other findings: distant Respiratory: CTAB, no wheezes, no rales, no ronchi Respiratory - other findings: diminished BLL Gastrointestinal: soft, non-tender, no guarding, no rigidity Skin - other findings: PM chest wall Psychiatric: normal affect, A&O x 3 Hosp A/P (1) CHF (congestive heart failure) Code(s): I50.9 - HEART FAILURE, UNSPECIFIED Status: Chronic Qualifiers: Heart failure type: systolic Heart failure chronicity: chronic Qualified Code(s): I50.22 - Chronic systolic (congestive) heart failure Plan: Will restart Coreg and Entresto Will hold torsemide in am for now. (2) HTN (hypertension) Code(s): I10 - ESSENTIAL (PRIMARY) HYPERTENSION Status: Chronic Plan: Restart Coreg q hs Restart Entresto q AM Will hold torsemide in am for now (3) DMII (diabetes mellitus, type 2) Status: Chronic Qualifiers: Diabetes mellitus intermission coordinator insulin use: without retirement use Plan: Denies any home medications for medical managment Check glucose AC/HS Mild sliding scale, bedtime sliding scale (4) Morbidly obese Code(s): E66.01 - MORBID (SEVERE) OBESITY DUE TO EXCESS CALORIES Status: Acute Plan: HH diet (5) GERD (gastroesophageal reflux disease) Code(s): K21.9 - GASTRO-ESOPHAGEAL REFLUX DISEASE WITHOUT ESOPHAGITIS Status: Acute Plan: Start TUMS prn (6) Atrial fibrillation Code(s): I48.91 - UNSPECIFIED ATRIAL FIBRILLATION Status: Chronic Plan: Currently atrial paced Will hold ASA and Eliquis for now. (7) CAD (coronary artery disease) Code(s): I25.10 - ATHSCL HEART DISEASE OF [place] CORONARY ARTERY W/O ANG PCTRS Status: Chronic Qualifiers: Coronary Disease-Associated Artery/Lesion type: bypass graft Plan: Will restart coreg and entresto Will hold ASA and Eliquis for now. (8) HLD (hyperlipidemia) Code(s): E78.5 - HYPERLIPIDEMIA, UNSPECIFIED Status: Chronic Plan: Denies any home medications for medical managment. (9) CANDACE (obstructive sleep apnea) Code(s): G47.33 - OBSTRUCTIVE SLEEP APNEA (ADULT) (PEDIATRIC) Status: Chronic - Plan Unable to tolerate home CPAP.
[2019-09-15] MEDS ORDERED: Dextrose 5% in Water 1,000 ML IV PRN (17:36)
[2019-09-15] MEDS ORDERED: Dextrose 50% Abboject 50 ML SYRINGE SLOW IVP PRN (17:36)
[2019-09-15] MEDS ORDERED: HumaLOG 300 UNITS/3 ML VIAL SC PRN ×2 (17:36)
[2019-09-15] MEDS ORDERED: Calcium Carbonate 500 MG ChewTAB PO PRN (17:47)
[2019-09-15] MEDS ORDERED: Carvedilol 25 MG TAB PO SCH (21:00)
[2019-09-16] MEDS: CEFAZOLIN 2 GM in Premix Bag 1 BAG IVPB SCH ×2 (01:44→08:03)
[2019-09-16] MEDS: Sodium Chloride 0.9% 1,000 ML IV SCH (02:20)
[2019-09-16 05:01] LABS: #Monocytes 1.2 thou/uL (0.11-0.59); #Neutrophils 9.3 thou/uL (1.40-6.50); %Basophils 0.1 % (0.0-1.0); %Eosinophils 0.4 % (0.0-10.0); %Lymphocytes 8.9 % (21.0-51.0); %Monocytes 10.5 % (0.0-10.0); %Neutrophils 80.1 % (42.0-75.0); Hemoglobin 14.2 g/dL (14.0-18.0); Mean Corpuscular HGB CONC 31.7 g/dL (32.0-36.0); Mean Corpuscular Hemoglobin 28.7 pg (27.0-31.0); Mean Corpuscular Volume 90.5 fL (78.0-98.0); Mean Platelet Volume 7.2 fL (7.4-10.4); Platelet Count 165 thou/uL (130-400); RBC Distribution Width 13.1 % (11.5-14.5); Red Blood Cell (RBC) Count 4.95 mill/uL (4.70-6.10); White Blood Cell (WBC) Count 11.6 thou/uL (4.8-10.8)
[2019-09-16 05:24] LABS: Anion Gap 11 mmol/L (10-20); BUN (Urea Nitrogen) 20 mg/dL (8.4-25.7); Calc. Creatinine Clearance 121 mL/min (70-130); Calcium 8.9 mg/dL (7.8-10.44); Carbon Dioxide 30 mmol/L (23-31); Chloride 98 mmol/L (98-107); Estimated GFR-MDRD 53; Glucose 191 mg/dL (80-115); Potassium 4.9 mmol/L (3.5-5.1); Sodium 134 mmol/L (136-145)
[2019-09-16] MEDS ORDERED: Tamsulosin HCl 0.4 MG CAP PO SCH (06:00)
[2019-09-16] MEDS: HYDROcodone/Acetaminophen 10/325 mg Tablet PO PRN (08:01)
[2019-09-16] MEDS ORDERED: Aspirin 325 MG TAB PO SCH (09:00)
[2019-09-16 11:22] VITALS: BP 105/64; TEMP 98.6
--- NOTE | 2019-09-16 12:19 | DIS ---
DATE OF ADMISSION: 09/15/2019 DATE OF DISCHARGE: 09/16/2019 The patient is a 69-year-old male, recently evaluated in our office for progressive lumbar stenosis and neurogenic claudication. His imaging was notable for significant stenosis at L3-L4. The patient was admitted to the hospital, underwent L3-L4 decompression and fusion on 09/15/2019. Hardware was not placed. Following the surgery, he was transitioned to the Med/Surg floor, where his pain has been well controlled with p.o. medications, he is tolerating regular diet, and he is voiding appropriately. JENNIFER drain was placed intraoperatively, but this has had minimal output overnight. The patient has no complaints at this time and he feels that he is ready to return home. I have discussed home care precautions. We will follow up with the patient in 2 weeks. He has been provided with prescriptions for [place], Keflex, and Zanaflex. He has been asked to hold his anticoagulants aspirin and Plavix for the next 2 weeks. Job ID: [id number]
== END 2019-09-16 12:26 | disposition home or self-care (01) ==
LOC: SDC 07:42 → SURG B 13:09
PROVIDERS: ADMIT Neurological Surgery; ATTEND Neurological Surgery
PROC: 0SG0071 Fusion of Lumbar Vertebral Joint with Autologous Tissue Substitute, Posterior Approach, Posterior Column, Open Approach (ICD-10-PCS; principal; 2019-09-15)
DX: M48.062 Spinal stenosis, lumbar region with neurogenic claudication (principal); I11.0 Hypertensive heart disease with heart failure; E11.9 Type 2 diabetes mellitus without complications; I50.22 Chronic systolic (congestive) heart failure; K21.9 Gastro-esophageal reflux disease without esophagitis; I48.91 Unspecified atrial fibrillation; I25.10 Atherosclerotic heart disease of native coronary artery without angina pectoris; E78.5 Hyperlipidemia, unspecified; G47.33 Obstructive sleep apnea (adult) (pediatric); E66.01 Morbid (severe) obesity due to excess calories; Z79.899 Other long term (current) drug therapy; Z68.42 Body mass index [BMI] 45.0-49.9, adult; Z95.1 Presence of aortocoronary bypass graft; Z79.01 Long term (current) use of anticoagulants
CPT/HCPCS: 20930; 20936; 22612; 76000; 80048 ×2; 82962 ×2; 85025 ×2; 93005; 96365; 96366; 96376; 97110; 97116; C1768; G0378 ×2; 36415; 36416; 93010; J0690; J2001; J2370; J2405; J2704; J3010; J3370; J3490

== ENCOUNTER 2019-10-01 13:22 | Outpatient (CLI) | payer MEDICARE ==
--- NOTE | 2019-10-01 13:48 | RAD ---
LUMBAR SPINE 2 VIEWS: Date: 10/01/2019 HISTORY: Lumbar stenosis. COMPARISON: 08/07/2019. FINDINGS: Recent postop laminectomy changes at L4 and L5. There is motion artifact which lowers the sensitivity of this study. Extensive spondylosis. No significant change in alignment. IMPRESSION: Recent postoperative changes. No significant malalignment. POS: [facility]
== END 2019-10-01 13:23 | disposition home or self-care (01) ==
LOC: TBSIIMAG 13:22
PROVIDERS: ATTEND Neurological Surgery
DX: M48.062 Spinal stenosis, lumbar region with neurogenic claudication (principal); Z98.890 Other specified postprocedural states
CPT/HCPCS: 72100

== ENCOUNTER 2020-01-29 07:00 | Outpatient (CLI) | payer MEDICARE, OTHER ==
[2020-01-30 11:42] LABS: SARS-CoV-2 MS2 Positive; SARS-CoV-2 N Gene Negative; SARS-CoV-2 S Gene Negative; SARS-CoV-2 orf1ab Negative
== END 2020-01-29 07:01 | disposition home or self-care (01) ==
LOC: LABBT 07:00
PROVIDERS: ATTEND Internal Medicine Gastroenterology
DX: Z01.812 Encounter for preprocedural laboratory examination (principal); Z11.59 Encounter for screening for other viral diseases; K59.00 Constipation, unspecified; Z86.010 Personal history of colon polyps; I25.810 Atherosclerosis of coronary artery bypass graft(s) without angina pectoris
CPT/HCPCS: 87635; U0003

== ENCOUNTER 2020-02-03 05:59 | Day surgery (SDC) | payer MEDICARE ==
[2020-01-28 11:47] VITALS: BMI 45.3
[2020-02-03] MEDS ORDERED: Midazolam HCl 2 mg/2 ml Vial ONE (07:26)
[2020-02-03] MEDS ORDERED: Ketamine 50 MG/ML (10ML VIAL) ONE (07:26)
--- NOTE | 2020-02-03 09:39 | OP ---
DATE OF PROCEDURE: 02/03/2020 PROCEDURES PERFORMED: Colonoscopy with snare polypectomy. PHYSICIAN: Lester Fletcher MD PREMEDICATION: Given by Anesthesiology Department. PREPROCEDURE DIAGNOSIS: History of colon polyps. POSTPROCEDURE DIAGNOSES: 1. Transverse colon polyps x2. 2. Sigmoid polyp. 3. Otherwise normal colon exam. DESCRIPTION OF PROCEDURE: Written consents were obtained prior to procedure. After adequate sedation, the forward-viewing endoscope was advanced to the cecum. The quality of the bowel prep was good. The ileocecal valve and appendiceal orifice were visualized and appeared normal. The cecum, ascending colon, and hepatic flexure appeared normal. In the distal transverse colon, a 5 mm sessile polyp was noted and was removed with cold snare. In the distal transverse polyp, a semi-pedunculated polyp measuring approximately 1 cm was noted. This polyp was removed with snare electrocautery with good hemostasis. A small hemostatic clip was deployed to close the defect at the base. The polyp was retrieved. The splenic flexure and descending colon appeared normal. In the sigmoid colon, a 4 mm sessile polyp was noted and was removed with cold snare and retrieved. The rectosigmoid colon and rectal vault appeared normal including retroflexion. The patient tolerated the procedure well. ASSESSMENT: 1. Two transverse colon polyps and one sigmoid polyp were removed. 2. Otherwise normal colon exam. RECOMMENDATIONS: 1. Await biopsy results. 2. Resume Eliquis tomorrow. Job ID: [id number]
[2020-02-03] MEDS ORDERED: PROPOFOL 200 MG/20 ML VIAL ONE (10:47)
== END 2020-02-03 09:30 | disposition home or self-care (01) ==
LOC: SDC 05:59
PROVIDERS: ATTEND Internal Medicine Gastroenterology
PROC: 0DBN8ZX Excision of Sigmoid Colon, Via Natural or Artificial Opening Endoscopic, Diagnostic (ICD-10-PCS; principal; 2020-02-03)
PROC: 0DBL8ZX Excision of Transverse Colon, Via Natural or Artificial Opening Endoscopic, Diagnostic (ICD-10-PCS; 2020-02-03)
DX: D12.3 Benign neoplasm of transverse colon (principal); K59.09 Other constipation; I25.810 Atherosclerosis of coronary artery bypass graft(s) without angina pectoris; I11.0 Hypertensive heart disease with heart failure; I50.9 Heart failure, unspecified; M19.90 Unspecified osteoarthritis, unspecified site; I25.2 Old myocardial infarction; E78.00 Pure hypercholesterolemia, unspecified; Z86.010 Personal history of colon polyps; Z79.01 Long term (current) use of anticoagulants; Z79.82 Long term (current) use of aspirin; Z79.899 Other long term (current) drug therapy; Z95.1 Presence of aortocoronary bypass graft; Z95.810 Presence of automatic (implantable) cardiac defibrillator; Z98.1 Arthrodesis status
CPT/HCPCS: 88305; J2250; J2704

== ENCOUNTER 2020-05-20 06:55 | Outpatient (CLI) | payer MEDICARE ==
[2020-05-20 15:10] LABS: #Eosinphils 0.1 10x3/uL (0.0-0.5); #Monocytes 0.7 10x3/uL (0.0-1.1); #Neutrophils 4.1 10x3/uL (1.5-8.4); %Basophils 0.6 % (0.0-2.0); %Eosinophils 1.7 % (0.0-6.0); %Lymphocytes 21.8 % (18.0-47.0); %Neutrophils 64.4 % (40.0-75.0); Hemoglobin 15.6 g/dL (14.0-18.0); Mean Corpuscular HGB CONC 32.9 G/DL (32.0-36.0); Mean Corpuscular Hemoglobin 29.6 PG (27.0-33.0); Mean Corpuscular Volume 89.9 fl (80.0-100.0); Platelet Count 176 10x3/uL (130-400); RBC Distribution Width 14.1 % (11.5-14.5); Red Blood Cell (RBC) Count 5.27 10x6/uL (4.40-5.80); White Blood Cell (WBC) Count 6.4 10x3/uL (4.5-11.0)
[2020-05-20 15:25] LABS: Anion Gap 13 mmol/L (10-20); BUN (Urea Nitrogen) 20 mg/dL (8.4-25.7); Calc. Creatinine Clearance 0 mL/min (70-130); Calcium 9.6 mg/dL (7.8-10.44); Carbon Dioxide 28 mmol/L (23-31); Chloride 100 mmol/L (98-107); Estimated GFR-MDRD 73; Glucose 107 mg/dL (80-115); Potassium 4.8 mmol/L (3.5-5.1); Sodium 136 mmol/L (136-145)
[2020-05-20 20:49] LABS: Hemoglobin A1c 6.3 % (4.0-6.0)
[2020-05-21 14:35] LABS: SARS-CoV-2 MS2 Positive; SARS-CoV-2 N Gene Negative; SARS-CoV-2 S Gene Negative; SARS-CoV-2 by NAA Not Detected (NotDetected); SARS-CoV-2 orf1ab Negative
--- NOTE | 2020-05-25 06:55 | EKG ---
Test Reason : PREOP Blood Pressure : / mmHG Vent. Rate : 062 BPM Atrial Rate : 062 BPM P-R Int : 294 ms QRS Dur : 172 ms QT Int : 488 ms P-R-T Axes : 016 257 028 degrees QTc Int : 495 ms Atrial-paced rhythm with prolonged AV conduction Right bundle branch block Possible Inferior infarct , age undetermined Abnormal ECG No previous ECGs available Confirmed by ANNABELLE HARRISON MD ([id number]) on 05/25/2020 6:54:52 AM Referred By: ASHLEY Confirmed By:ANNABELLE HARRISON MD
== END 2020-05-20 06:56 | disposition home or self-care (01) ==
LOC: LABBT 06:55
PROVIDERS: ATTEND Specialist
DX: Z01.818 Encounter for other preprocedural examination (principal); Z20.828 Contact with and (suspected) exposure to other viral communicable diseases; K63.89 Other specified diseases of intestine
CPT/HCPCS: 80048; 83036; 85025; 93005; U0003; 87635; 93010

== ENCOUNTER 2020-05-20 13:30 | Inpatient (IN) | payer MEDICARE ==
[2020-05-24 12:37] VITALS: BMI 44.4
[2020-05-25] MEDS ORDERED: Fentanyl 100 MCG/2 ML VIAL ONE ×3 (07:51→10:30)
[2020-05-25] MEDS ORDERED: Midazolam HCl 2 mg/2 ml Vial ONE ×2 (07:51→10:20)
[2020-05-25] MEDS ORDERED: cefOXitin Sodium/Dextrose 2 GM/50 ML BAG ONE (08:10)
[2020-05-25] MEDS ORDERED: Acetaminophen 500 MG TAB ONE (08:10)
[2020-05-25] MEDS ORDERED: Ketorolac Tromethamine 30 MG/ML VIAL ONE (08:10)
[2020-05-25] MEDS ORDERED: Lidocaine 1% PF 5 ML VIAL ONE ×2 (08:11→10:23)
[2020-05-25] MEDS ORDERED: Lidocaine 1% w/Epinephrine 1:100K 20 ML VIAL ONE ×2 (08:29→12:27)
[2020-05-25] MEDS ORDERED: Bupivacaine 0.25% HCL 30 ML VIAL ONE (08:29)
[2020-05-25] MEDS ORDERED: ePHEDrine 50 MG/ML VIAL ONE (10:23)
[2020-05-25] MEDS ORDERED: Glycopyrrolate 0.2 MG/ML 5 ML SYRINGE ONE (10:23)
[2020-05-25] MEDS ORDERED: Rocuronium Bromide 10 MG/ML (10ML VIAL) ONE (10:23)
[2020-05-25] MEDS ORDERED: Ondansetron PF 4 MG/2 ML Vial ONE (10:23)
[2020-05-25] MEDS ORDERED: Bupivacaine HCl 0.5%/Epinephrine 1:200,000/PF 30 ml Vial ONE (10:23)
[2020-05-25] MEDS ORDERED: Norepinephrine 4 MG/4 ML VIAL ONE (10:31)
[2020-05-25] MEDS ORDERED: Lidocaine 2% Jelly 5 ML TUBE ONE (10:31)
[2020-05-25] MEDS ORDERED: Albumin 5% 0 ML ONE (10:31)
[2020-05-25] MEDS ORDERED: Phenylephrine 10 MG/ML VIAL ONE (10:31)
[2020-05-25] MEDS ORDERED: Promethazine HCl 25 MG/ML VIAL SLOW IVP PRN (13:04)
[2020-05-25] MEDS ORDERED: Ondansetron HCl/PF 4 MG/2 ML Vial IVP PRN (13:04)
[2020-05-25] MEDS ORDERED: Promethazine HCl 25 MG/ML VIAL IM PRN ×2 (13:04→13:17)
[2020-05-25] MEDS ORDERED: Morphine 4 MG/ML VIAL SLOW IVP PRN (13:17)
[2020-05-25] MEDS ORDERED: Morphine 2 MG/ML VIAL SLOW IVP PRN (13:17)
[2020-05-25] MEDS ORDERED: hydrALAZINE 20 MG/ML VIAL SLOW IVP PRN (13:17)
[2020-05-25] MEDS ORDERED: Torsemide 10 MG TAB PO PRN (13:26)
[2020-05-25] MEDS: Ketorolac Tromethamine 30 MG/ML VIAL IVP SCH (18:17)
[2020-05-25] MEDS: D5 1/2 NS w/20 mEq KCL 1,000 ML IV SCH (18:17)
--- NOTE | 2020-05-25 19:28 | OP ---
DATE OF PROCEDURE: 05/25/2020 PREOPERATIVE DIAGNOSIS: Mesenteric tumor involving the small bowel. POSTOPERATIVE DIAGNOSIS: Mesenteric tumor involving the small bowel. OPERATION PERFORMED: Laparoscopic hand-assisted segmental small bowel resection with a wide mesenteric excision. ANESTHESIA: General endotracheal. INDICATIONS FOR PROCEDURE: The patient is a morbidly obese 69-year-old white male with multiple comorbidities. He has been found to have a mesenteric mass within the abdomen, appearing to be on the right side of the abdomen. This has findings potentially consistent with carcinoid tumor. Surgical resection has been recommended. DESCRIPTION OF OPERATION: Informed consent was obtained. The patient was taken to the operating room, where general endotracheal anesthesia was obtained with the patient supine position. TAP block had been placed by Anesthesia preoperatively. Abdomen was prepped with ChloraPrep and draped in sterile fashion. Local anesthetic was infiltrated using 0.25% Marcaine with epinephrine. A 5 mm right lateral midabdominal incision was created, through which a Veress needle was passed into the peritoneal cavity and pneumoperitoneum established using carbon dioxide up to pressure of 15 mmHg. A 5 mm trocar port was passed through this incision. Laparoscopic camera was passed this port. Under direct vision, two additional 5 mm ports were placed, one in the right upper quadrant and one in the right lower quadrant. The omentum was reflected superiorly. The ileocecal valve was identified and the small bowel was traced proximally. About a foot from the cecum, there was an indurated mass noted within the mesentery that caused the mesentery of the small bowel to contract down around it. This was clearly the area of the abnormality. I decided to place an Dusty wound retractor at this site for extraction. I placed a fourth 5 mm incision in the mid lower abdomen. I removed the port from the right mid abdomen made an 8 cm transverse incision and placed an Dusty wound retractor through this. The GelPort was fixed on top of it and the operation was continued laparoscopically in hand assisted fashion. I was able to reach under the mass, which revealed no evidence of deeper communication. This did have several loops of small bowel wrapped around it however. I identified a segment of small bowel proximal and distal that appeared to be outside the vascular supply of this area. I initially began dissection of both areas using the LigaSure device intraabdominal, it was subsequently converted to an extracorporeal dissection. I was able to mobilize the section of the small bowel through the Dusty wound retractor. I completed the mesenteric dissection between both segments of small bowel and deeply around the mass. All visible and palpable abnormality was removed. The bowel was divided proximally and distally using JOCELYN 75 stapler. I inspected both ends for vascular competence and all areas appeared to be viable. I thereafter performed a JOCELYN 75 stapled anastomosis in a [id number] fashion. The common enterotomy was then removed with a final firing of the same JOCELYN 75 stapler. During the time that the bowel was opened, sterile towels were placed around the field and segregated instruments were used. These were passed off the field immediately after the bowel was closed and gloves were changed. The anastomosis was buttressed with several interrupted sutures of 3-0 silk in the usual fashion. The mesenteric defect was closed using a running suture of 3-0 Vicryl. The bowel was dropped back down to the abdominal cavity. Laparoscopy was re-initiated and the area was inspected. The anastomosis was again noted to be viable. There was no bleeding anywhere within the abdomen. The remainder of the abdomen was inspected both visually and with palpation. The liver was without abnormality. There was no evidence of other mesenteric mass or abnormality. The ports were removed under direct vision. Dusty wound retractor was removed. Pneumoperitoneum was evacuated. The fascia at the extraction site was closed in 2 layers using #1 PDS suture. Additional local anesthetic was instilled between the two layers. The wound was copiously irrigated with over a liter of saline. The remainder of the wound was closed in layers with 3-0 Vicryl and 4-0 Monocryl. Other ports were closed with 4-0 Monocryl suture. Dermabond was placed externally. There were no complications. Blood loss was negligible. The patient tolerated the procedure well, was taken to recovery room in stable condition. Job ID: [id number]
[2020-05-25] MEDS: Famotidine 20 MG TAB PO SCH (21:22)
[2020-05-25] MEDS: Amiodarone 200 MG TAB PO SCH (21:24)
[2020-05-25] MEDS: Carvedilol 25 MG TAB PO SCH (21:24)
[2020-05-25] MEDS: Enoxaparin Sodium 40 MG/0.4 ML SYRINGE SC SCH (21:24)
[2020-05-25] MEDS: Empagliflozin 10 MG TAB PO SCH (21:25)
[2020-05-25] MEDS: Famotidine/PF 20 mg/2ml Vial SLOW IVP SCH (21:28)
[2020-05-26] MEDS: Ketorolac Tromethamine 30 MG/ML VIAL IVP SCH ×4 (00:17→18:09)
[2020-05-26] MEDS: D5 1/2 NS w/20 mEq KCL 1,000 ML IV SCH ×4 (03:45→20:26)
[2020-05-26 05:58] LABS: #Eosinphils 0.1 thou/uL (0.0-0.7); #Lymphocytes 0.9 thou/uL (1.20-3.40); #Monocytes 0.9 thou/uL (0.11-0.59); %Basophils 0.4 % (0.0-1.0); %Eosinophils 0.7 % (0.0-10.0); %Lymphocytes 10.4 % (21.0-51.0); %Monocytes 10.4 % (0.0-10.0); %Neutrophils 78.1 % (42.0-75.0); Hemoglobin 15.3 g/dL (14.0-18.0); Mean Corpuscular HGB CONC 32.9 g/dL (32.0-36.0); Mean Corpuscular Hemoglobin 30.5 pg (27.0-31.0); Mean Corpuscular Volume 92.7 fL (78.0-98.0); Mean Platelet Volume 7.5 fL (7.4-10.4); Platelet Count 183 thou/uL (130-400); RBC Distribution Width 13.3 % (11.5-14.5); Red Blood Cell (RBC) Count 5.02 mill/uL (4.70-6.10); White Blood Cell (WBC) Count 8.9 thou/uL (4.8-10.8)
[2020-05-26 06:19] LABS: Anion Gap 14 mmol/L (10-20); BUN (Urea Nitrogen) 17 mg/dL (8.4-25.7); Calc. Creatinine Clearance 154 mL/min (70-130); Calcium 8.6 mg/dL (7.8-10.44); Carbon Dioxide 21 mmol/L (23-31); Chloride 103 mmol/L (98-107); Estimated GFR-MDRD 70; Glucose 124 mg/dL (80-115); Potassium 4.4 mmol/L (3.5-5.1); Sodium 134 mmol/L (136-145)
[2020-05-26] MEDS: Aspirin 81 mg Enteric Coated Tablet PO SCH (08:56)
[2020-05-26] MEDS: Famotidine/PF 20 mg/2ml Vial SLOW IVP SCH ×2 (08:56→20:22)
[2020-05-26] MEDS: Famotidine 20 MG TAB PO SCH ×2 (08:56→20:20)
[2020-05-26] MEDS: Sacubitril 49 MG/Valsartan 51 MG TABLET PO SCH (10:30)
[2020-05-26] MEDS ORDERED: HYDROcodone/Acetaminophen 7.5/325 mg Tablet PO PRN ×2 (13:11)
[2020-05-26] MEDS: Amiodarone 200 MG TAB PO SCH (20:20)
[2020-05-26] MEDS: Carvedilol 25 MG TAB PO SCH (20:20)
[2020-05-26] MEDS: Empagliflozin 10 MG TAB PO SCH (20:21)
[2020-05-26] MEDS: Enoxaparin Sodium 40 MG/0.4 ML SYRINGE SC SCH (20:21)
[2020-05-26] MEDS: Ondansetron PF 4 MG/2 ML Vial IVP PRN (22:32)
[2020-05-27] MEDS: Ketorolac Tromethamine 30 MG/ML VIAL IVP SCH ×3 (00:02→12:25)
--- NOTE | 2020-05-27 01:10 | PRG ---
DATE OF SERVICE: 05/26/2020 SUBJECTIVE: Mr. 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 This morning, he has no complaints. He notes no abdominal discomfort. He states he has chronic back discomfort, but nothing involving his abdomen. He tolerated clear liquids uneventfully. He denies nausea or vomiting. He has voided and he has ambulated. PHYSICAL EXAMINATION: VITAL SIGNS: He is afebrile. Pulse is stable in the 60s. Blood pressure is 140/80. LUNGS: Clear to auscultation. CARDIAC: Regular rate and rhythm. ABDOMEN: Morbidly obese, but soft. Incisions are healing nicely and minimally tender. LABORATORY DATA: CBC is normal with a white blood cell count of 8.9, hemoglobin of 15.3. Basic metabolic panel is unremarkable. His blood sugars have been well controlled between 130 and 170. ASSESSMENT AND PLAN: The patient is doing very well, following segmental small bowel resection of mesenteric mass. The plan is to decrease IV fluids and advance diet to full liquids. He continues to tolerate his diet and appears stable. He will be ready for discharge tomorrow. Job ID: [id number]
[2020-05-27] MEDS: Ondansetron PF 4 MG/2 ML Vial IVP PRN (05:41)
[2020-05-27] MEDS: Aspirin 81 mg Enteric Coated Tablet PO SCH (09:04)
[2020-05-27] MEDS: Famotidine/PF 20 mg/2ml Vial SLOW IVP SCH (09:05)
[2020-05-27] MEDS: Famotidine 20 MG TAB PO SCH (09:05)
[2020-05-27] MEDS: Sacubitril 49 MG/Valsartan 51 MG TABLET PO SCH (09:08)
[2020-05-27 11:43] VITALS: BP 106/60; TEMP 98
--- NOTE | 2020-05-28 14:58 | DIS ---
DATE OF ADMISSION: 05/25/2020 DATE OF DISCHARGE: 05/27/2020 ADMISSION DIAGNOSIS: Mesenteric mass of the small bowel. DISCHARGE DIAGNOSIS: Mesenteric mass of the small bowel. PROCEDURES PERFORMED: Laparoscopic hand-assisted segmental small bowel resection with deep mesentery dissection of the hard mesenteric mass. ADMISSION HISTORY: The patient is a morbidly obese 69-year-old white male with weight of 356 pounds. Imaging recently revealed a partially calcified mass within the mesentery of the small bowel in the right abdomen. He was taken to the operating room at this time for laparoscopic resection. HOSPITAL COURSE: The patient presented to the hospital on the day of admission. He underwent uneventful segmental resection. The mass was very easily visualized and was removed intact with the surrounding affected small bowel. He had an entirely unremarkable postoperative course. He was tolerating his diet and actually had some early bowel function by postoperative day #1. Diet was advanced uneventfully. He denied any discomfort in his abdomen. By postoperative day #2, he was eager for discharge and was discharged home. He was given a prescription for tramadol to use as needed. He was asked to follow up with myself in 2 weeks. Job ID: [id number]
== END 2020-05-27 14:40 | disposition home or self-care (01) | DRG 330 ==
LOC: SURG A 05-25 07:24
PROVIDERS: ADMIT Specialist; ATTEND Specialist
PROC: 0DB84ZZ Excision of Small Intestine, Percutaneous Endoscopic Approach (ICD-10-PCS; principal; 2020-05-25)
DX: C7A.019 Malignant carcinoid tumor of the small intestine, unspecified portion (principal); Z68.41 Body mass index [BMI] 40.0-44.9, adult; E66.01 Morbid (severe) obesity due to excess calories; Z95.1 Presence of aortocoronary bypass graft; Z79.82 Long term (current) use of aspirin; Z79.02 Long term (current) use of antithrombotics/antiplatelets; Z88.8 Allergy status to other drugs, medicaments and biological substances
CPT/HCPCS: 36415; 36416; 80048; 85025; 88309; 88341; 88342; 88360; J0360; J0694; J1642; J1650; J1885; J2250; J2370; J2405; J3010; J3480; J3490; P9045; S0020

== ENCOUNTER 2020-05-31 05:46 | Inpatient (IN) | payer MEDICARE ==
[2020-05-31 07:27] LABS: CKMB 2.1 ng/mL (0-6.6)
[2020-05-31] MEDS ORDERED: Ondansetron PF 4 MG/2 ML Vial IVP PRN ×2 (11:09→14:20)
[2020-05-31] MEDS ORDERED: Ondansetron ODT 4 MG TAB PO PRN (11:09)
[2020-05-31] MEDS ORDERED: Dextrose 5 % And 0.9 % NaCl 1,000 ML IV SCH (11:15)
[2020-05-31] MEDS ORDERED: hydrALAZINE 20 MG/ML VIAL SLOW IVP PRN (14:20)
[2020-05-31] MEDS ORDERED: Morphine 2 MG/ML VIAL SLOW IVP PRN (14:20)
[2020-05-31] MEDS ORDERED: Promethazine HCl 25 MG/ML VIAL IM PRN (14:20)
[2020-05-31] MEDS ORDERED: Torsemide 20 MG TAB PO PRN (14:26)
[2020-05-31] MEDS ORDERED: D5 1/2 NS w/20 mEq KCL 1,000 ML IV SCH (14:30)
[2020-05-31 14:54] LABS: Hemoglobin 14.8 g/dL (14.0-18.0); Mean Corpuscular HGB CONC 32.7 g/dL (32.0-36.0); Mean Corpuscular Hemoglobin 30.6 pg (27.0-31.0); Mean Corpuscular Volume 93.6 fL (78.0-98.0); Mean Platelet Volume 7.2 fL (7.4-10.4); Platelet Count 213 thou/uL (130-400); RBC Distribution Width 13.3 % (11.5-14.5); Red Blood Cell (RBC) Count 4.84 mill/uL (4.70-6.10); White Blood Cell (WBC) Count 4.7 thou/uL (4.8-10.8)
[2020-05-31 15:05] LABS: Anion Gap 15 mmol/L (10-20); BUN (Urea Nitrogen) 71 mg/dL (8.4-25.7); Calc. Creatinine Clearance 0 mL/min (70-130); Calcium 10.1 mg/dL (7.8-10.44); Carbon Dioxide 32 mmol/L (23-31); Chloride 94 mmol/L (98-107); Glucose 164 mg/dL (80-115); Potassium 3.8 mmol/L (3.5-5.1); Sodium 137 mmol/L (136-145)
[2020-05-31 15:14] LABS: Band 62 % (5-11); Lymphocytes 12 % (21-51); MDiff Complete? YES; Metamyelocyte 3 % (0-0); Monocytes 15 % (0-10); Neutrophil 2 % (42-75); Platelet Morphology Comment Appears Adequate; Polychromasia SLIGHT = 2-3 cells (100X) (0-2/hpf); Reactive Lymphocytes 6 % (0-10); Reflex for Review?? YES
[2020-05-31] MEDS ORDERED: Lactated Ringer's 1,000 ML IV SCH (15:15)
--- NOTE | 2020-05-31 16:15 | RAD ---
KUB: History: Follow up of ileus FINDINGS: There is gaseous distention of the abdomen. There is air within colon, but also within dilated mid ab dominal small bowel loops. An NG tube is partially visualized and appears to be in the left upper sarah drant of the abdomen. IMPRESSION: Air in both small and large bowel. Some of the small bowel loops are dilated. This could indicate ile us versus partial small bowel obstruction. POS: AH
[2020-05-31] MEDS: D5 0.9% NS w/ 20 mEq KCl 1,000 ML IV SCH ×2 (18:25→20:52)
[2020-05-31 18:39] VITALS: BMI 41.8
--- NOTE | 2020-05-31 19:06 | HP ---
CHIEF COMPLAINT: Nausea, vomiting, and abdominal distention. HISTORY OF PRESENT ILLNESS: Patient is a morbidly obese 69-year-old white male. He is postoperative day #6 from a laparoscopic assisted small bowel resection. 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 He did well after his surgery and was discharged home on postoperative day #2, tolerating clear liquids and with flatus. After discharge home, he tells me he was not taking much in the way of pain medication and he began to have problems with nausea and vomiting about postoperative day #4. This persisted until early this morning, at which point he presented to the emergency room in [place]. He was noted to have a normal CBC, but elevated creatinine level. CT scan showed evidence of stomach and small bowel distention consistent with ileus versus obstruction. Nasogastric tube was placed and there was reportedly in excess of 2 L in his stomach. He has felt much better since this was placed. Nasogastric tube remains in place. He denies any abdominal discomfort currently. Past medical history, surgical history, etc., please see recent history. PHYSICAL EXAMINATION: VITAL SIGNS: He is afebrile. Pulse is in the 70s. Blood pressure is a little bit low and at 11 o'clock this morning it was 100/59. HEAD, EYES, EARS, NOSE, AND THROAT: Unremarkable. NECK: Supple. LUNGS: Clear to auscultation. CARDIAC: Regular rate and rhythm. ABDOMEN: Obese and nontender. Incisions are healing nicely. There are no bowel sounds appreciated currently. EXTREMITIES: Unremarkable. LABORATORY DATA: His CBC shows a white blood cell count of 4.7 with a hemoglobin of 14.8, platelet count of 213. There is, however, a 62% bandemia. Lactate level in the emergency room this morning was normal. Basic metabolic panel reveals elevated BUN of 71 and creatinine of 2.06. His last BUN on the was 17 and his last creatinine was 1.05. ASSESSMENT: Patient with suspected postoperative ileus. PLAN: Nasogastric decompression, bowel rest, IV fluid support, ambulation and wait until ileus resolves. I have discussed this in detail with the patient and his . His nasogastric tube appears to be functioning well. I will obtain a baseline KUB this afternoon. We will decide on further imaging studies from there. He certainly has an entirely nontender/non-concerning abdomen. Job ID: [id number]
[2020-05-31] MEDS: Famotidine/PF 20 mg/2ml Vial SLOW IVP SCH (20:43)
[2020-05-31] MEDS: Enoxaparin Sodium 40 MG/0.4 ML SYRINGE SC SCH (20:43)
[2020-05-31] MEDS: Amiodarone 200 MG TAB PO SCH (20:46)
[2020-05-31] MEDS: Carvedilol 25 MG TAB PO SCH (20:46)
[2020-05-31] MEDS ORDERED: Enoxaparin Sodium 40 MG/0.4 ML SYRINGE SC SCH (21:00)
[2020-06-01] MEDS: D5 0.9% NS w/ 20 mEq KCl 1,000 ML IV SCH ×3 (03:54→18:07)
[2020-06-01 06:14] LABS: Anion Gap 13 mmol/L (10-20); BUN (Urea Nitrogen) 54 mg/dL (8.4-25.7); Calc. Creatinine Clearance 114 mL/min (70-130); Calcium 9.6 mg/dL (7.8-10.44); Carbon Dioxide 36 mmol/L (23-31); Chloride 97 mmol/L (98-107); Glucose 189 mg/dL (80-115); Potassium 3.7 mmol/L (3.5-5.1); Sodium 142 mmol/L (136-145)
[2020-06-01 06:35] LABS: Band 41 % (5-11); Eosinophils 1 % (0-10); Hemoglobin 13.9 g/dL (14.0-18.0); Lymphocytes 15 % (21-51); MDiff Complete? YES; Mean Corpuscular HGB CONC 32.7 g/dL (32.0-36.0); Mean Corpuscular Hemoglobin 30.4 pg (27.0-31.0); Mean Corpuscular Volume 93.1 fL (78.0-98.0); Mean Platelet Volume 6.9 fL (7.4-10.4); Monocytes 12 % (0-10); Neutrophil 31 % (42-75); Platelet Count 201 thou/uL (130-400); RBC Distribution Width 13.2 % (11.5-14.5); Red Blood Cell (RBC) Count 4.58 mill/uL (4.70-6.10); White Blood Cell (WBC) Count 4.2 thou/uL (4.8-10.8)
[2020-06-01] MEDS: Enoxaparin Sodium 40 MG/0.4 ML SYRINGE SC SCH ×2 (09:15→20:14)
[2020-06-01] MEDS: Famotidine/PF 20 mg/2ml Vial SLOW IVP SCH ×2 (09:15→20:14)
[2020-06-01] MEDS ORDERED: Cepastat Lozenges 1 LOZ PO PRN (09:37)
--- NOTE | 2020-06-01 10:25 | PRG ---
DATE OF SERVICE: 06/01/2020 SUBJECTIVE: Mr. Medeiros remains in his bed on the surgical floor. Since I was here yesterday, he has not ambulated in the hallway. He tells me that he "knows he needs to go" and he promises to get up and walk today. He is tolerating ice chips. Nasogastric tube is in place. He has had 2600 mL of gastric output yesterday and his urine output is good. OBJECTIVE: VITAL SIGNS: Temperature is 98.0, pulse 64, blood pressure 111/72, oxygen saturation is 93% on 3 L. LUNGS: Clear to auscultation anteriorly. CARDIAC: Regular rate and rhythm. ABDOMEN: Massively obese, but soft, nontender. There is no bowel sounds audible. All incisions are healing nicely. LABORATORY DATA: CBC shows persistently low, but stable white blood cell count of 4.2, hemoglobin 13.9, platelet count is 201. His bandemia has improved, but he still has 41% bands. Chemistry panel shows normal sodium, potassium is 3.7, his chloride has improved from 94 to 97, his CO2 however is elevated from 32 to 36. BUN and creatinine are improved at 54 and 1.3. ASSESSMENT AND PLAN: The patient is stable with a postoperative ileus. Continue nasogastric decompression. Use Cepastat lozenges as necessary for sore throat. Continue ice chips. Encourage him to begin ambulation. I am not really certain with the etiology of his bandemia. I do not know if this is a pulmonary issue. He has an entirely benign abdomen with only shannan-incisional tenderness in the right lower quadrant. There is no evidence of intra-abdominal fluid collection on CT scan. I will check a chest x-ray and encourage incentive spirometry as well as ambulation. Job ID: [id number]
--- NOTE | 2020-06-01 10:36 | RAD ---
EXAM: Chest PA and lateral: HISTORY: Possible pneumonia COMPARISON: 08/20/2019 FINDINGS: Lungs appear clear of infiltrate. Mild vascular engorgement. Mild cardiomegaly with postop sternotomy change. AICD leads unchanged. Degenerative spine changes. Wedging of lower thoracic and upper lumbar vertebra. IMPRESSION: No acute process identified.
[2020-06-01] MEDS: Amiodarone 200 MG TAB PO SCH (20:09)
[2020-06-01] MEDS: Carvedilol 25 MG TAB PO SCH (20:13)
[2020-06-02] MEDS: D5 0.9% NS w/ 20 mEq KCl 1,000 ML IV SCH ×3 (01:46→10:06)
[2020-06-02 06:39] LABS: Anion Gap 12 mmol/L (10-20); BUN (Urea Nitrogen) 31 mg/dL (8.4-25.7); Calc. Creatinine Clearance 136 mL/min (70-130); Calcium 9.1 mg/dL (7.8-10.44); Carbon Dioxide 36 mmol/L (23-31); Chloride 104 mmol/L (98-107); Glucose 208 mg/dL (80-115); Potassium 3.9 mmol/L (3.5-5.1); Sodium 148 mmol/L (136-145)
[2020-06-02 06:50] LABS: Band 22 % (5-11); Hemoglobin 14.4 g/dL (14.0-18.0); Lymphocytes 13 % (21-51); MDiff Complete? YES; Mean Corpuscular HGB CONC 32.3 g/dL (32.0-36.0); Mean Corpuscular Hemoglobin 30.6 pg (27.0-31.0); Mean Corpuscular Volume 94.6 fL (78.0-98.0); Mean Platelet Volume 6.9 fL (7.4-10.4); Monocytes 17 % (0-10); Neutrophil 48 % (42-75); Platelet Count 200 thou/uL (130-400); RBC Distribution Width 13.1 % (11.5-14.5); Red Blood Cell (RBC) Count 4.71 mill/uL (4.70-6.10); Toxic Granulation SLIGHT; White Blood Cell (WBC) Count 5.5 thou/uL (4.8-10.8)
[2020-06-02] MEDS ORDERED: D5 0.9% NS w/ 20 mEq KCl 1,000 ML IV SCH (09:00)
[2020-06-02] MEDS: Enoxaparin Sodium 40 MG/0.4 ML SYRINGE SC SCH ×2 (09:59→21:06)
[2020-06-02] MEDS: Famotidine/PF 20 mg/2ml Vial SLOW IVP SCH ×2 (09:59→21:08)
--- NOTE | 2020-06-02 14:37 | RAD ---
Small bowel follow-through Gastrografin HISTORY: Abdominal pain. Ileus versus obstruction. FINDINGS: Gastrografin contrast was administered through the nasogastric tube. Early images show cont rast opacification of dilated small bowel loops. Contrast was slow to pass through the small bowel. At approximately 3 hours, patient had a bowel movement. The 3 hour image shows contrast within the co chery. Fluoroscopic evaluation confirmed contrast within the colon. The small bowel was nearly completely ap eristaltic at fluoroscopy. IMPRESSION : Markedly diminished bowel motion, with the appearance of ileus. Contrast did pass throughout the cyndy l, however, with the colon reached at 3 hours. No evidence of obstruction.
[2020-06-02] MEDS ORDERED: Dextrose 50% Abboject 50 ML SYRINGE SLOW IVP PRN (15:49)
[2020-06-02] MEDS ORDERED: Dextrose 5% in Water 1,000 ML IV PRN (15:49)
[2020-06-02] MEDS: 1/2 NS w/KCL 20 mEq 1,000 ML IV SCH (16:59)
[2020-06-02] MEDS: Insulin Regular 300 UNITS/3 ML VIAL SC PRN (18:56)
[2020-06-02] MEDS: Amiodarone 200 MG TAB PO SCH (21:06)
[2020-06-02] MEDS: Carvedilol 25 MG TAB PO SCH (21:07)
[2020-06-03] MEDS: 1/2 NS w/KCL 20 mEq 1,000 ML IV SCH ×4 (02:53→23:17)
[2020-06-03 06:23] LABS: Anion Gap 14 mmol/L (10-20); BUN (Urea Nitrogen) 29 mg/dL (8.4-25.7); Calc. Creatinine Clearance 137 mL/min (70-130); Calcium 9.2 mg/dL (7.8-10.44); Carbon Dioxide 36 mmol/L (23-31); Chloride 105 mmol/L (98-107); Glucose 154 mg/dL (80-115); Potassium 4.1 mmol/L (3.5-5.1); Sodium 151 mmol/L (136-145)
[2020-06-03 06:29] LABS: Band 28 % (5-11); Eosinophils 1 % (0-10); Hemoglobin 14.7 g/dL (14.0-18.0); Lymphocytes 15 % (21-51); MDiff Complete? YES; Mean Corpuscular HGB CONC 31.3 g/dL (32.0-36.0); Mean Corpuscular Hemoglobin 30.2 pg (27.0-31.0); Mean Corpuscular Volume 96.5 fL (78.0-98.0); Mean Platelet Volume 6.5 fL (7.4-10.4); Monocytes 10 % (0-10); Neutrophil 46 % (42-75); Platelet Count 208 thou/uL (130-400); RBC Distribution Width 13.2 % (11.5-14.5); Red Blood Cell (RBC) Count 4.87 mill/uL (4.70-6.10)
[2020-06-03] MEDS: Insulin Regular 300 UNITS/3 ML VIAL SC PRN ×2 (06:45→18:54)
--- NOTE | 2020-06-03 08:45 | RAD ---
EXAM: Single view of the abdomen HISTORY: Small bowel follow-through follow-up. Bowel obstruction COMPARISON: Small bowel follow-through 06/02/2020 FINDINGS: Single view of the abdomen shows an NG tube in the stomach. Contrast is seen in the colon f rom recent contrast examination. No residual contrast is seen within the small bowel loops. There are a few air-filled loops of small bowel in the left upper quadrant of the abdomen. IMPRESSION: Passage of contrast through the small bowel into the colon suggests partial small bowel o bstruction.
[2020-06-03] MEDS: Enoxaparin Sodium 40 MG/0.4 ML SYRINGE SC SCH ×2 (09:04→20:44)
[2020-06-03] MEDS: Famotidine/PF 20 mg/2ml Vial SLOW IVP SCH ×2 (09:05→20:44)
--- NOTE | 2020-06-03 14:13 | PDOC.GSPN ---
Surgery Progress Note: Subj - Subjective Narrative: Patient is feeling better today. He states that he is passing gas and having bowel movements and not nauseated and wants his NG tube out so he can eat and go home. He states that most the NG output is just ice chips that he is eating, but his nurse states that she has only given him 1 cup today. His abdomen is still distended although his incisions look fine. He still has high NG output. I am unable to comment on the color as the canister has recently been changed. 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 Partial obstruction cannot be completely ruled out. He is passing gas and having bowel movements but NG output is still high. I have clamped the NG tube and ordered clear liquids on a trial basis for the patient. He understands that if he has nausea or abdominal pain he is to call the nurse to have the NG tube backup. If he remains asymptomatic we will check residual in 4 hours. If the residual is low then we will take out the NG tube; otherwise I will likely repeat a CT scan to see if there is a transition point. He had very slow transit on his small bowel follow-through with 4 hours for the contrast to reach the colon but no definite point of obstruction or change in caliber was noted. However this might be difficult to black pickler on fluoroscopy. Surgery Progress Note: Obj - Vital signs Vital signs: Vital Signs - Most Recent Temp Pulse Resp BP Pulse Ox 98.3 F 66 20 155/84 H 99 06/03/20 10:51 06/03/20 10:51 06/03/20 10:51 06/03/20 10:51 06/03/20 10:51 Surgery Progress Note: Results - Labs Result Diagrams: 06/03/20 05:38 06/03/20 05:38 Lab results: Laboratory Results - last 12 hr 06/03/20 06/03/20 06/03/20 05:38 05:38 06:00 WBC 7.0 RBC 4.87 Hgb 14.7 Hct 47.0 MCV 96.5 MCH 30.2 MCHC 31.3 L RDW 13.2 Plt Count 208 MPV 6.5 L Neutrophils % (Manual) 46 Band Neuts % (Manual) 28 H Lymphocytes % (Manual) 15 L Monocytes % (Manual) 10 Eosinophils % (Manual) 1 Sodium 151 H Potassium 4.1 Chloride 105 Carbon Dioxide 36 H Anion Gap 14 BUN 29 H Creatinine 1.11 Estimated GFR (MDRD) 66 Glucose 154 H POC Glucose 153 H Calcium 9.2 06/03/20 10:55 WBC RBC Hgb Hct MCV MCH MCHC RDW Plt Count MPV Neutrophils % (Manual) Band Neuts % (Manual) Lymphocytes % (Manual) Monocytes % (Manual) Eosinophils % (Manual) Sodium Potassium Chloride Carbon Dioxide Anion Gap BUN Creatinine Estimated GFR (MDRD) Glucose POC Glucose 138 H Calcium
[2020-06-03] MEDS: Amiodarone 200 MG TAB PO SCH (20:43)
[2020-06-03] MEDS: Carvedilol 25 MG TAB PO SCH (20:44)
[2020-06-04] MEDS: Insulin Regular 300 UNITS/3 ML VIAL SC PRN (05:56)
[2020-06-04] MEDS: Enoxaparin Sodium 40 MG/0.4 ML SYRINGE SC SCH (09:11)
[2020-06-04] MEDS: Famotidine/PF 20 mg/2ml Vial SLOW IVP SCH (09:11)
[2020-06-04] MEDS: 1/2 NS w/KCL 20 mEq 1,000 ML IV SCH (09:12)
--- NOTE | 2020-06-04 09:33 | PDOC.GSPN ---
Surgery Progress Note: Subj - Subjective Narrative: Patient feels good. NG tube was removed last night. No nausea or abdominal pain. Tolerating a clear liquid diet and has ordered full liquids for breakfast. Vital signs okay. Abdomen is soft and nontender. Assessment/plan: Ileus status post small bowel resection, clinically improved. If tolerates full liquid diet can go home on this with plans to advance slowly at home. Return to clinic to see Karyna as scheduled. Surgery Progress Note: Obj - Vital signs Vital signs: Vital Signs - Most Recent Temp Pulse Resp BP Pulse Ox 97.8 F 61 18 117/78 94 L 06/04/20 08:10 06/04/20 08:10 06/04/20 08:10 06/04/20 08:10 06/04/20 08:10 Surgery Progress Note: Results - Labs Result Diagrams: 06/03/20 05:38 06/03/20 05:38 Lab results: Laboratory Results - last 12 hr 06/03/20 06/04/20 23:07 05:48 POC Glucose 144 H 196 H
[2020-06-04 13:50] VITALS: BP 101/70; TEMP 97.7
--- NOTE | 2020-06-08 00:49 | PQF ---
CLINICAL DOCUMENTATION CLARIFICATION FORM: Dear : Troy Duran MD Date / Time: 06/08/2020 Please exercise your independent, professional judgment in responding to the clarification form. Clinical indicators are provided on the bottom of this form for your review Please check appropriate box(es): [ ] Ileus is a complication of recent laproscopic assisted small bowel resection surgery [ ] Ileus is not a complication of recent laproscopic assisted small bowel resection surgery [ x ] Other diagnosis __ileus is expected outcome of recent surgery; degree is more severe than usual (Please specify if any) [ ] Unable to determine Physician Signature: Date/Time: For continuity of documentation, please document condition throughout progress notes and discharge summary. Thank You. To be completed by CDI/Coding staff for physician review: Present Clinical Indicators - Signs / Symptoms / Labs Results and Location in Medical Record [ ] CT / x-ray results [ ] Altered vitals [ ] Pain/ drainage from site [ ] Supporting labs [x] His abdomen is still distended although his incisions look fine General surgery PN on 06/03 [x] Nausea and vomitting about postoperative day#4 H&P on 05/31 [x] Patient with postoperative ileus H&P on 05/31 [ ] Infection Present Risk Factors Results and Location in Medical Record [x] Recent surgery-post op day 6 of laproscopic assisted small bowel resection H&P on 05/31 [ ] Poor healing factors (advanced age / debility / obesity / chronic conditions) [ ] Recent use of antibiotics [ ] Present Treatments Results and Location in Medical Record [ ] Antibiotics [x] Dextrose 5% & 0.9& NaCl 1,000 ml Medication on 05/31, 06/01 [x] NG tube placement Emergency room visit notes on 05/31 [ ] CDS/Sprigger Signature: AAS Phone #: Date/Time: 06/08/2020 This is a permanent part of the Medical Record [facility]
== END 2020-06-04 13:50 | disposition home or self-care (01) | DRG 389 ==
LOC: ERS 05:46 → SURG A 07:30
PROVIDERS: ADMIT Specialist; ATTEND Specialist
PROC: 0D9670Z Drainage of Stomach with Drainage Device, Via Natural or Artificial Opening (ICD-10-PCS; principal; 2020-05-31)
DX: K56.7 Ileus, unspecified (principal); Z68.41 Body mass index [BMI] 40.0-44.9, adult; K56.600 Partial intestinal obstruction, unspecified as to cause; G47.33 Obstructive sleep apnea (adult) (pediatric); I25.10 Atherosclerotic heart disease of native coronary artery without angina pectoris; E86.0 Dehydration; E66.01 Morbid (severe) obesity due to excess calories; I48.91 Unspecified atrial fibrillation; Z95.810 Presence of automatic (implantable) cardiac defibrillator; Z95.1 Presence of aortocoronary bypass graft; Z79.01 Long term (current) use of anticoagulants; Z79.899 Other long term (current) drug therapy; Z79.82 Long term (current) use of aspirin; Z85.030 Personal history of malignant carcinoid tumor of large intestine
CPT/HCPCS: 36415; 36416; 71046; 74018; 74250; 80048; 82553; 83880; 84484; 85025; 85060; 94640; 96360; 96361; J1650; J1815; J3480; J7042; J7620; S0028

== ENCOUNTER 2020-06-05 23:06 | Inpatient (IN) | payer MEDICARE ==
[~2020-06-05 23:06] MED LIST: Iopamidol-370 76% 500 ML 1 ML ONE
[2020-06-05] MEDS ORDERED: Morphine 4 MG/ML VIAL ONE (23:22)
[2020-06-05] MEDS ORDERED: Vancomycin 1 GM/200 ML BAG ONE (23:22)
[2020-06-05] MEDS ORDERED: Piperacillin/Tazobactam 4.5 GM VIAL ONE (23:22)
[2020-06-05] MEDS ORDERED: Ondansetron PF 4 MG/2 ML Vial ONE (23:22)
[2020-06-06 00:04] LABS: Mean Corpuscular HGB CONC 32.9 g/dL (32.0-36.0); Mean Corpuscular Hemoglobin 30.3 pg (27.0-31.0); Mean Corpuscular Volume 92.2 fL (78.0-98.0); Mean Platelet Volume 7.2 fL (7.4-10.4); Platelet Count 190 thou/uL (130-400); RBC Distribution Width 13.2 % (11.5-14.5); Red Blood Cell (RBC) Count 5.26 mill/uL (4.70-6.10); White Blood Cell (WBC) Count 17.8 thou/uL (4.8-10.8)
[2020-06-06 00:20] LABS: Band 16 % (5-11); Lymphocytes 4 % (21-51); MDiff Complete? YES; Metamyelocyte 1 % (0-0); Monocytes 11 % (0-10); Neutrophil 68 % (42-75); Platelet Morphology Comment Appears Adequate; Toxic Granulation SLIGHT
[2020-06-06 00:25] LABS: ALT (SGPT) 38 U/L (8-55); AST (SGOT) 24 U/L (5-34); Albumin 3.1 g/dL (3.4-4.8); Alkaline Phosphatase 88 U/L (40-110); Anion Gap 19 mmol/L (10-20); BUN (Urea Nitrogen) 22 mg/dL (8.4-25.7); Bilirubin, Total 0.9 mg/dL (0.2-1.2); Calc. Creatinine Clearance 0 mL/min (70-130); Calcium 9.3 mg/dL (7.8-10.44); Carbon Dioxide 28 mmol/L (23-31); Chloride 98 mmol/L (98-107); Globulin 3.2 g/dL (2.4-3.5); Glucose 150 mg/dL (80-115); Lipase 59 U/L (8-78); Potassium 3.7 mmol/L (3.5-5.1); Protein, Total 6.3 g/dL (5.8-8.1); Sodium 141 mmol/L (136-145)
[2020-06-06 00:45] LABS: Lactic Acid 1.5 mmol/L (0.5-2.2)
[2020-06-06 01:47] LABS: Bilirubin Negative (Negative); Blood, Urine Negative (Negative); Clarity Clear (Clear); Glucose, Urine (Dipstick) Greater than 1000 mg/dL (Negative); Ketone, Urine 40 mg/dL (Negative); Leukocyte Negative Leu/uL (Negative); Nitrite Negative (Negative); Protein, Urine (Dipstick) 10 mg/dL (Neg-Trace); Urobilinogen Normal mg/dL (Less than 2); pH, Urine 5.5 (5.0-9.0)
[2020-06-06 01:48] LABS: Specific Gravity, Urine 1.049 (1.002-1.036)
[2020-06-06] MEDS: Lactated Ringer's 1,000 ML IV SCH ×4 (03:45→17:02)
[2020-06-06] MEDS: Vancomycin 1.5 GRAM/300 ML BAG 1.5 GM in Premix Bag 1 BAG IVPB SCH ×2 (04:27→14:03)
[2020-06-06] MEDS: Piperacillin/Tazobactam 4.5 GM in Sodium Chloride 0.9% 100 ML IVPB SCH ×5 (06:25→23:32)
--- NOTE | 2020-06-06 08:09 | CT ---
PRELIMINARY REPORT/[facility]/EMERGENCY AFTER HOURS PROCEDURE: Receipt of this report by the clinical staff was confirmed with Florinda Freitas RN by Nelli Sifuentes Jun 06, 2020 01:06:00 SIMULATION SPECIALIST. Addendum electronically signed by Nelli Sifuentes on June 06, 2020 1:06:[address] OF THE ABDOMEN AND PELVIS WITH IV CONTRAST CLINICAL HISTORY: Drainage from abdominal wall incision TECHNIQUE: Serial axial images obtained. Sagittal reconstructed images obtained. Coronal reconstructed images obtained. Exam is performed with 100 mL of Isovue-370 intravenous contrast. Per PQRS, CT exam is performed using one or more of the following dose reduction techniques: Automate d exposure control, adjustment of the mA and/or KV according to patient size, or use of iterative rec onstruction techniques. COMPARISON: CT-abdomen/pelvis of 08/18/19 FINDINGS: There is dilatation of multiple loops of small bowel with air-fluid levels and edema of the preston con sistent with small bowel obstruction with transition zone in the distal ileum. Minimal atelectasis is seen in the dependent portions of the lung. Severe disc space narrowing and osteophyte formation of the lumbar spine is seen at multiple levels. The rest of the solid organs, viscera and bones are unremarkable. IMPRESSION: 1. Small bowel obstruction with transition zone in the distal ileum. Finding is new compared to prior CT-abdomen/pelvis of 08/18/19. ELECTRONICALLY SIGNED BY: Bernardo Lai MD Jun 06, 2020 12:59:30 AM SIMULATION SPECIALIST This report is intended for review by the ordering physician only, in accordance of law. If you recei ve this report in error, please call [facility] at [phone]. FINAL REPORT EMERGENCY AFTER HOURS CT ABDOMEN AND PELVIS WITH CONTRAST: COMPARISON: CT 08/18/2019. FINDINGS/IMPRESSION: I DISAGREE with the findings and impression given in the preliminary report per [facility] phys ician. 1. There are dilated loops of small bowel consistent with small bowel obstruction. There is apparent transition point in the right lower quadrant of the abdomen in the region of the terminal ileum. 2. A finding not mentioned in the preliminary is air and a small amount of fluid in the right abdomi nal wall. This air all appears to be above the peritoneal reflection and likely is in a wound in the patient's right abdominal wall consistent with a wound infection. POS: EAA
--- NOTE | 2020-06-06 08:25 | RAD ---
PORTABLE CHEST 1 VIEW: Date: 06/06/2020 Time: 1247 hours HISTORY: Postop drainage with fever. COMPARISON: 06/01/2020. FINDINGS/IMPRESSION: Changes of median sternotomy and left-sided pacemaker device are again seen. Nasogastric tube has bee n placed with tip in the stomach. Heart size is enlarged. No lobar consolidation, pneumothoraces, or pleural effusions are seen. POS: JOSSELYNA
[2020-06-06] MEDS ORDERED: traMADol HCl 50 MG TAB PO PRN ×2 (10:48)
[2020-06-06] MEDS ORDERED: Acetaminophen 325 MG TAB PO PRN ×2 (10:48)
[2020-06-06] MEDS: D5 1/2 NS w/20 mEq KCL 1,000 ML IV SCH ×2 (12:01→20:38)
[2020-06-06] MEDS ORDERED: Heparin 1,000 UNITS/ML VIAL ONE (13:10)
--- NOTE | 2020-06-06 13:21 | HP ---
CHIEF COMPLAINT: Wound drainage. HISTORY OF PRESENT ILLNESS: Mr. Medeiros is a 69-year-old man, who underwent a laparoscopic assisted small bowel resection on 05/25/2020. Postoperatively, he recovered well and had passage of flatus and was tolerating a liquid diet. He was discharged to home on the , but returned to the emergency room on the with nausea and vomiting. An x-ray of the abdomen showed dilated loops of small bowel and stomach. An NG tube was placed for suspected ileus and he symptomatically improved. He underwent a small-bowel follow-through on 06/02, which showed slow peristalsis but no obstruction and no change in caliber with contrast into the colon at 3 hours. It was felt that he had a resolving ileus. His NG tube was clamped and he was started on a clear liquid diet. His residual was low and the NG tube was removed. He was advanced to a full liquid diet and discharged to home on 06/04, tolerating this and having bowel movements, passing flatus. At the time of his discharge, his incisions were clean and dry, and his abdomen was nontender. He had normal bowel sounds. He returned late last night because his hand port site had opened up and started draining. I had spoken to him earlier in the afternoon, and initially, the drainage was clear in color, slightly yellowish, and I felt that this was likely fat necrosis. A photograph of the wound sent by his did not show any obvious signs of infection. However, later that evening, she contacted me and said it looked like there was stool coming out of the wound and there was also gas coming out of the wound. At that point, I advised her to go immediately to the emergency room. He underwent a CT, which showed some gas and fluid in the subcutaneous tissues of the wound and dilated proximal loops of small bowel and stomach with decompressed distal loops. The anastomosis was visible near the incision, but the bowel loops proximal and distal to the anastomosis both appeared decompressed. The distal bowel was decompressed, but I could not identify the definite transition point. The ER doctor stated that the patient definitely had feculent drainage from the wound and a large quantity to the point that he placed an ileostomy bag over the wound. The patient has continued to have brown liquid drainage from the wound since his admission. He states that when he tries to get up and move around, he has a tearing pain at his incision, but he has been in bed since admission. Other than the pain at the incision, he is not really having a lot of abdominal pain. He has not had any nausea or vomiting, and was having bowel movements at the time of his admission. His stools have all been liquid in consistency since his operation. PAST MEDICAL HISTORY: Morbid obesity, obstructive sleep apnea, coronary artery disease, atrial fibrillation, carcinoid tumor of the small bowel, diabetes. PAST SURGICAL HISTORY: Defibrillator placement, triple bypass, laparoscopic assisted small bowel resection on 05/25/2020, back surgery. SOCIAL HISTORY: The patient does not smoke or use illicit drugs. He drinks rarely and only socially. ALLERGIES: HE HAS NO KNOWN DRUG ALLERGIES. OUTPATIENT MEDICATIONS: Include; 1. Eliquis. 2. Aspirin. 3. Carvedilol. 4. Torsemide. 5. Amiodarone. 6. Jardiance. 7. Entresto. REVIEW OF SYSTEMS: Ten system review of systems is negative except per HPI and sore throat since NG tube was placed. PHYSICAL EXAMINATION: VITAL SIGNS: The patient has been afebrile since his admission. Heart rate 84, respirations 16, 92% saturated on room air, blood pressure 130/79. GENERAL: Reveals a pleasant elderly gentleman, in no acute distress. He is not toxic or diaphoretic in appearance. He is not jaundiced or icteric. He is somewhat flushed but chronic for him. HEENT: Unremarkable. Pupils are equal. Extraocular movements and facial movements are symmetric. NECK: Supple without lymphadenopathy or thyroid nodules. HEART: Regular in its rate and rhythm without murmurs, rubs, or gallops. LUNGS: Clear to auscultation bilaterally. ABDOMEN: Soft and nondistended. He has tenderness to palpation at the right lower quadrant incision, but is otherwise nontender to palpation. He has bowel sounds present. His abdomen is distended. He has an NG tube in place with bilious output. He has dark brown liquid in the ileostomy bag on the right lower quadrant incision, which has a feculent odor. The wound was examined and there do not appear to be any undrained pockets of fluid on probing with a Q-tip. The patient did pass gas through his wound as I was . EXTREMITIES: Warm and well perfused without edema. NEURO: No focal deficits. PSYCHIATRIC: Alert, oriented, and appropriate. LABORATORY DATA: White count is elevated at 17.8, hematocrit 48.5 which is up a little bit from his baseline, platelets 190. Electrolytes are unremarkable. Blood glucose 150. LFTs normal. Albumin slightly low at 3.1. Urine glucose was greater than 1000 and he had some ketones. IMAGING DATA: CT images are reviewed and I agree with the written report. 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 It is not clear whether the fistula is at the level of the anastomosis, but on my read of the CT, it looks like the bowel going into and out of the anastomosis are both decompressed. I suspect that is from more proximal bowel. I cannot identify the definite point of obstruction, but an enterocutaneous fistula in the setting of a bowel obstruction and will likely require surgical intervention. I am holding anticoagulation for this reason. He has SCDs in place. I am going to continue his amiodarone, carvedilol. The patient has not really had reliable oral intake since his surgery on the so I have ordered TPN. I had requested a PICC line, but this cannot be placed until tomorrow. He is on Zosyn but does not appear . I have discussed his presentation with Dr. Troncoso, who will be assuming care tomorrow. Job ID: [id number]
[2020-06-06] MEDS ORDERED: Chloraseptic Spray 180 ml Bottle PO PRN (14:25)
[2020-06-06 14:43] LABS: SARS-CoV-2 MS2 Positive; SARS-CoV-2 N Gene Negative; SARS-CoV-2 S Gene Negative; SARS-CoV-2 by NAA Not Detected (NotDetected); SARS-CoV-2 orf1ab Negative
[2020-06-06] MEDS ORDERED: AA 4.25 %/CALCIUM/LYTES/D5W 2,000 ML IV SCH (16:15)
[2020-06-06] MEDS: Amiodarone 200 MG TAB PO SCH (20:18)
[2020-06-06] MEDS: Carvedilol 25 MG TAB PO SCH (20:18)
[2020-06-06] MEDS: D5W-AA 4.25% with LYTES 1,000 ML IV SCH (20:19)
[2020-06-07] MEDS: D5 1/2 NS w/20 mEq KCL 1,000 ML IV SCH ×2 (04:45→12:08)
[2020-06-07 05:49] LABS: #Eosinphils 0.1 thou/uL (0.0-0.7); #Lymphocytes 0.8 thou/uL (1.20-3.40); %Basophils 0.1 % (0.0-1.0); %Eosinophils 0.5 % (0.0-10.0); %Lymphocytes 5.9 % (21.0-51.0); %Monocytes 7.7 % (0.0-10.0); %Neutrophils 85.9 % (42.0-75.0); Hemoglobin 14.6 g/dL (14.0-18.0); Mean Corpuscular HGB CONC 32.1 g/dL (32.0-36.0); Mean Corpuscular Hemoglobin 30.2 pg (27.0-31.0); Mean Corpuscular Volume 94.2 fL (78.0-98.0); Mean Platelet Volume 7.5 fL (7.4-10.4); Platelet Count 155 thou/uL (130-400); RBC Distribution Width 13.1 % (11.5-14.5); Red Blood Cell (RBC) Count 4.84 mill/uL (4.70-6.10); White Blood Cell (WBC) Count 12.8 thou/uL (4.8-10.8)
[2020-06-07] MEDS: Piperacillin/Tazobactam 4.5 GM in Sodium Chloride 0.9% 100 ML IVPB SCH ×3 (06:02→18:43)
[2020-06-07 06:05] LABS: ALT (SGPT) 24 U/L (8-55); AST (SGOT) 21 U/L (5-34); Albumin 2.5 g/dL (3.4-4.8); Alkaline Phosphatase 81 U/L (40-110); Anion Gap 14 mmol/L (10-20); BUN (Urea Nitrogen) 19 mg/dL (8.4-25.7); Bilirubin, Total 0.8 mg/dL (0.2-1.2); Calc. Creatinine Clearance 178 mL/min (70-130); Calcium 8.3 mg/dL (7.8-10.44); Carbon Dioxide 31 mmol/L (23-31); Cardiac Risk 5.2 (Less than 4.5); Chloride 101 mmol/L (98-107); Cholesterol 129 mg/dl (< 200 Desired); Glucose 196 mg/dL (80-115); HDL Cholesterol 25 mg/dL (>60 Neg Risk); LDL Cholesterol, Calculated 81 mg/dL; Magnesium 2.3 mg/dL (1.6-2.6); Phosphorus 2.4 mg/dL (2.3-4.7); Potassium 3.1 mmol/L (3.5-5.1); Protein, Total 5.5 g/dL (5.8-8.1); Sodium 143 mmol/L (136-145); Triglycerides 113 mg/dL (Less than 150)
[2020-06-07] MEDS: D5W-AA 4.25% with LYTES 1,000 ML IV SCH (08:28)
[2020-06-07] MEDS ORDERED: Dextrose 5% in Water 1,000 ML IV PRN (09:00)
[2020-06-07] MEDS ORDERED: Dextrose 50% Abboject 50 ML SYRINGE SLOW IVP PRN (09:00)
[2020-06-07] MEDS: Famotidine/PF 20 mg/2ml Vial SLOW IVP SCH ×2 (09:27→21:09)
--- NOTE | 2020-06-07 10:42 | SPC ---
PICC PLACEMENT ULTRASOUND-GUIDED VENOUS ACCESS: (Peripherally inserted central catheter) DATE: 06/07/2020 HISTORY: 69-year-old male requiring TPN because of small bowel obstruction and enterocutaneous fistula. TECHNIQUE: Catheter caliber: 5 Malagasy Catheter trim length:49 cm Catheter lumen number:double Catheter tip location:right atrium Vein accessed:right basilic Total fluoroscopy time: 0.8 min. Dose area product: 13,498 mGy*cm^2 Signed, informed consent was obtained. A tourniquet was applied at the proximal aspect of the arm. Th e arm was prepped and draped in the usual sterile fashion. A 25-gauge needle was used to applied buffered lidocaine superficially. The vein was punctured with a 21-gauge micropuncture needle under u ltrasound guidance. A 0.018 inch guidewire was advanced through the micropuncture needle and into the vein. Under fluoroscopic guidance, the guidewire was advanced to the superior vena cava. The PICC was flushed and trimmed to the appropriate length. The micropuncture needle was exchanged over the guidewire for a 5 Malagasy peel-away dilator sheath. The dilator was exchanged over the guidewire for t he PICC, which was then further advanced under fluoroscopy. The sheath and guidewire were removed. The PICC was flushed again and secured in place at the arm after adjustment of tip position. The etienne ent tolerated the procedure well. There was no complication. IMPRESSION: Successful placement of PICC (peripherally inserted central catheter).
[2020-06-07] MEDS ORDERED: SUGAMMADEX SODIUM 200 MG/2 ML VIAL ONE ×2 (11:19→17:05)
[2020-06-07] MEDS ORDERED: Fentanyl 100 MCG/2 ML VIAL ONE (11:19)
[2020-06-07] MEDS ORDERED: Bupivacaine 0.25% HCL 30 ML VIAL ONE (12:04)
[2020-06-07] MEDS ORDERED: Lidocaine 1% w/Epinephrine 1:100K 20 ML VIAL ONE (12:04)
[2020-06-07] MEDS: D5 1/2 NS w/40 mEq KCL 1,000 ML IV SCH ×3 (12:07→21:12)
[2020-06-07] MEDS ORDERED: Meperidine HCl/PF 25 MG/ML VIAL SLOW IVP PRN (12:42)
[2020-06-07] MEDS ORDERED: Promethazine HCl 25 MG/ML VIAL SLOW IVP PRN ×2 (12:42→17:32)
[2020-06-07] MEDS ORDERED: Ondansetron HCl/PF 4 MG/2 ML Vial IVP PRN ×2 (12:42→17:32)
[2020-06-07] MEDS ORDERED: Promethazine HCl 25 MG/ML VIAL IM PRN ×3 (12:42→17:33)
[2020-06-07] MEDS ORDERED: Midazolam HCl 2 mg/2 ml Vial ONE (12:50)
[2020-06-07] MEDS ORDERED: Rocuronium Bromide 10 MG/ML (10ML VIAL) ONE (14:15)
[2020-06-07] MEDS ORDERED: Ondansetron PF 4 MG/2 ML Vial ONE (14:15)
[2020-06-07] MEDS ORDERED: Dexamethasone 20 MG/5 ML VIAL ONE (14:15)
[2020-06-07] MEDS ORDERED: Glycopyrrolate 0.2 MG/ML 5 ML SYRINGE ONE (14:15)
[2020-06-07] MEDS ORDERED: Rocuronium Bromide 50 MG/5 ML VIAL ONE ×2 (14:40→14:42)
[2020-06-07] MEDS ORDERED: Ondansetron HCl/PF 4 MG in Sodium Chloride 0.9% 50 ML IVPB PRN (17:19)
[2020-06-07] MEDS ORDERED: Naloxone HCl 0.4 mg/ml Vial IV PRN (17:33)
[2020-06-07] MEDS ORDERED: diphenhydrAMINE 25 MG CAP PO PRN (17:33)
[2020-06-07] MEDS ORDERED: diphenhydrAMINE 50 MG/ML VIAL IVP PRN (17:33)
[2020-06-07] MEDS ORDERED: diphenhydrAMINE 50 MG/ML VIAL IM PRN (17:33)
[2020-06-07] MEDS ORDERED: Zolpidem Tartrate 5 MG TAB PO PRN (17:33)
[2020-06-07] MEDS ORDERED: Ondansetron PF 4 MG/2 ML Vial IVP PRN (17:33)
[2020-06-07] MEDS ORDERED: HYDROmorphone 10 mg/100 ml CADD IVPB PRN (17:33)
[2020-06-07] MEDS ORDERED: Communication Order-Pharmacy FS SCH (17:45)
[2020-06-07 19:32] LABS: INR-International Normal Ratio 1.4; PTT 25.4 sec (22.9-36.1); Prothrombin Time 17.2 sec (12.0-14.7)
[2020-06-07] MEDS: Amiodarone 200 MG TAB PO SCH (21:09)
[2020-06-07] MEDS: Enoxaparin Sodium 40 MG/0.4 ML SYRINGE SC SCH (21:09)
[2020-06-07] MEDS: Carvedilol 25 MG TAB PO SCH (21:09)
[2020-06-07] MEDS ORDERED: [UNRECOGNIZED DRUG - OTHER] IV SCH (22:00)
[2020-06-07] MEDS ORDERED: MULTIVITAMINS IV SCH (22:00)
[2020-06-07] MEDS ORDERED: FAT EMULSION IV SCH (22:00)
[2020-06-07] MEDS ORDERED: POTASSIUM CHLORIDE IV SCH (22:00)
[2020-06-07] MEDS: Piperacillin/Tazobactam 4.5 GM VIAL ONE (23:49)
[2020-06-07] MEDS: Insulin Regular 300 UNITS/3 ML VIAL SC PRN (23:54)
[2020-06-08] MEDS: Piperacillin/Tazobactam 4.5 GM in Sodium Chloride 0.9% 100 ML IVPB SCH ×4 (00:03→17:12)
[2020-06-08] MEDS: Piperacillin/Tazobactam 4.5 GM VIAL ONE (00:04)
[2020-06-08] MEDS: Insulin Regular 300 UNITS/3 ML VIAL SC PRN ×3 (05:56→18:28)
[2020-06-08 06:22] LABS: ALT (SGPT) 14 U/L (8-55); AST (SGOT) 14 U/L (5-34); Albumin 2.1 g/dL (3.4-4.8); Alkaline Phosphatase 61 U/L (40-110); Anion Gap 11 mmol/L (10-20); BUN (Urea Nitrogen) 18 mg/dL (8.4-25.7); Calc. Creatinine Clearance 180 mL/min (70-130); Calcium 7.6 mg/dL (7.8-10.44); Carbon Dioxide 31 mmol/L (23-31); Chloride 105 mmol/L (98-107); Globulin 2.9 g/dL (2.4-3.5); Glucose 252 mg/dL (80-115); Magnesium 2.3 mg/dL (1.6-2.6); Phosphorus 2.6 mg/dL (2.3-4.7); Potassium 3.6 mmol/L (3.5-5.1); Sodium 143 mmol/L (136-145)
--- NOTE | 2020-06-08 07:20 | OP ---
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 OPERATION PERFORMED: Exploratory laparoscopy converted into laparotomy with resection of prior anastomosis and new primary stapled anastomosis, functional ileocecectomy. ANESTHESIA: General endotracheal. INDICATIONS: The patient is a morbidly obese 69-year-old white male. 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 The patient had seemed to be progressing appropriately except that he had developed what appeared to be a postoperative ileus. He returned to the hospital at this time with enteric drainage from right lower quadrant incision. CT scan revealed proximal dilatation with distal decompression. In this setting, I felt that chances of a fistula resolving on its own were negligible. I therefore recommended return to the operating room for evaluation. DESCRIPTION OF OPERATION: Informed consent was obtained. The patient was taken to the operating room, where general endotracheal anesthesia was obtained with patient in supine position. I oversewed the incision that was draining in the right lower quadrant. This was transverse extraction site. The abdomen was then prepped with ChloraPrep and draped in sterile fashion. Local anesthetic was infiltrated with a mixture of 0.25% Marcaine and 1% lidocaine with epinephrine at each incision site. I placed three 5 mm ports in the left abdomen, one was periumbilical, the other two were above and below the umbilicus. I turned my attention to the inflammatory area in the right lower and right lateral abdomen. There were numerous adhesions between bowel and omentum to the anterior abdominal wall. I began to carefully dissect these. Since the surgery had been relatively recent, most of these adhesions were loose adhesions that quickly fell away. There were areas of much more dense inflammation, but as I approached them, it became difficult to manage them laparoscopically. I was able to visualize an opening into the small bowel lumen that was the defect, but I could not discern where this was relative to the anastomosis. I decided to convert to laparotomy. The ports and instruments were removed. Midline incision was created. Interestingly, in spite of his morbid obesity, he had a very thin anterior abdominal wall above the umbilicus with less than a centimeter of subcutaneous fat and a thinned out stretched muscular wall. Inferior to the umbilicus, the fatty layer was several centimeters thick. The Bookwalter retraction device was assembled to assist with retraction. Dissection was continued in the right abdomen. Part of what had been confusing laparoscopically was discerning that there was a thick layer of fatty tissue that resembled omentum coming from the inferior anterior abdominal wall. When I dissected the bowel away from this, which happened easily, then the anatomy was easier to discern. I was quickly able to identify all segments of bowel. Of note, there was negligible enteric material anywhere within the abdomen as it appeared that it was draining directly from the enterotomy to the abdominal wall. There was some surrounding inflammation, but appeared to be reactive material. I continued to gently mobilize the bowel away from adjacent segments as necessary to identify the entire length of bowel. I was able to run the small bowel from one end to the other. I mobilized the right colon away from the lateral abdominal wall by incising the white line of Toldt and mobilizing it. The segment of bowel that was involved was in fact at the anastomosis. The staple line was intact throughout and it appeared that part of the proximal segment of small bowel had opened in almost a linear fashion and at two separate locations on the anterior aspect of the anastomosis. I was uncertain why this was. The bowel still appeared to be viable. Presumed that there had been some full-thickness necrosis for some reason. There did not appear to be any tension on the area nor any vascular compromise that I could discern. Again, there was surprisingly little enteric material and negligible purulence at this area. I felt that the proximity of the anastomosis to the ileocecal valve was limited and I decided therefore to remove this segment in continuity with the ileocecal valve. The colon was entirely viable and pliable. I selected a segment of small bowel several centimeters proximal to the anastomosis as well as the proximal right colon for anastomosis. I considered giving him a temporary diverting ostomy, but he was hemodynamically stable, was not anemic, and there really was not much infectious material within the abdomen that would compromise the integrity of another anastomosis and I therefore decided to proceed with the resection and anastomosis. The small bowel was dissected proximally and divided with a JOCELYN stapler. The cecum was dissected and divided in a similar fashion. I then took down all the mesentery between these two including the mesenteric dissection from the prior surgery using the LigaSure Impact device. Hemostasis was meticulous during this procedure. Specimen was passed off the field. I then created a new [id number], functional end-to-end anastomosis between these two segments using the JOCELYN 70 stapler. The defect was closed with a final firing of the JOCELYN 70 stapler. All staple lines were buttressed with multiple sutures of 3-0 silk. I decided against closing the mesenteric defect at this point since it was a fairly generous opening. The abdominal cavity was then irrigated with 5 L of warm saline. All irrigant was aspirated. I obtained a 19-M[place] fluted JENNIFER drain, brought it out in the left lower abdomen and positioned it across the anastomosis in the right abdomen. It was secured externally with a 3-0 nylon suture. I placed two sheets of Seprafilm and closed the fascia with a running suture of looped #1 PDS. I turned my attention to the right lower quadrant incision. The sutures that I had placed previously were removed. There was infectious debris within the wound. I opened the anterior fascial sutures to expose the posterior fascia. This was surprisingly strong and intact. I placed two supplemental sutures of #1 PDS in a partial-thickness fashion to augment the closure at this level. I irrigated this layer extensively. I placed a half-inch [place] drain in this layer and brought it out through a stab incision laterally. It was secured with a 3-0 nylon suture. I then debrided and closed the anterior fascia with a running suture of #1 PDS. The remaining wound was again extensively irrigated. Both open wounds were then packed with dry gauze and a dry gauze dress was placed externally. There were no complications. Blood loss was minimal throughout the operation. The patient tolerated the procedure well and was taken to recovery room in stable condition. I will plan to have the Wound Care team place a wound VAC on both open wounds tomorrow. Job ID: [id number]
--- NOTE | 2020-06-08 07:22 | PDOC.GSPN ---
Surgery Progress Note: Subj - Subjective Patient reports: positive flatus, no bowel movement, still having pain Narrative: Mr. Medeiros is a 69 year old morbidly obese male who is POD 1 for exploratory laparotomy after presenting to the ED on 06/06 with an enterocutaneous fistula after his laparoscopic assisted small bowel resection on 05/25/2020. Patient stated he is doing ok today and he slept well. Patient endorsed pain as a 5 out of 10 located in lower abdomen. He stated the pain is not progressive and not constant. He stated he is scared to do anything too quickly after the operation. He endorsed flatulence, but denied BM. He stated he feels the "movement" inside him and feels he may have a BM soon. His NG output was 100 ml overnight. He denied any fever or chills. He denied chest tightness or pain. Surgery Progress Note: Obj - Vital signs Vital signs: Vital Signs - Most Recent Temp Pulse Resp BP Pulse Ox 98.3 F 78 20 98/60 92 L 06/08/20 03:31 06/08/20 03:31 06/08/20 03:31 06/08/20 03:31 06/08/20 03:31 - Physical Exam General: moderate pain, obese Cardiovascular: regular rate and rhythm Respiratory: clear to auscultation, breath sounds present Abdomen: soft, non tender, positive bowel sounds Psychiatric: oriented to time, oriented to person, oriented to place Wound: dressing clean,dry,intact (previous incision site is clean and dry in RUQ) Surgery Progress Note: Results - Labs Result Diagrams: 06/07/20 05:22 06/08/20 05:42 Lab results: Laboratory Results - last 12 hr 06/07/20 06/07/20 06/07/20 18:54 18:54 23:36 PT 17.2 H INR 1.4 APTT 25.4 Sodium Potassium Chloride Carbon Dioxide Anion Gap BUN Creatinine Estimated GFR (MDRD) Glucose POC Glucose 202 H Calcium Phosphorus Magnesium Total Bilirubin AST ALT Alkaline Phosphatase Serum Total Protein Albumin Globulin Albumin/Globulin Ratio Prealbumin Triglycerides 127 Cholesterol 126 LDL Cholesterol, Calc 80 HDL Cholesterol 21 Heart Disease Risk Ratio 6.0 06/08/20 06/08/20 06/08/20 05:42 05:42 05:48 PT INR APTT Sodium 143 Potassium 3.6 Chloride 105 Carbon Dioxide 31 Anion Gap 11 BUN 18 Creatinine 0.85 Estimated GFR (MDRD) 90 Glucose 252 H POC Glucose 235 H Calcium 7.6 L Phosphorus 2.6 Magnesium 2.3 Total Bilirubin 1.0 AST 14 ALT 14 Alkaline Phosphatase 61 Serum Total Protein 5.0 L Albumin 2.1 L Globulin 2.9 Albumin/Globulin Ratio 0.7 L Prealbumin 6.0 L Triglycerides Cholesterol LDL Cholesterol, Calc HDL Cholesterol Heart Disease Risk Ratio Surgery Progress Note: A/P - Plan Plan: Mr. Shepherd is a 69 year old moribdly obese male who is POD 1 after exploratory laparotomy after returning to the ED for an enterocutaneous fistula after his laparoscopic small bowel resction on 05/25/2020. Overall, patient is in no acute distress, but has moderate pain. -continue patient on DVT prophylaxis with SCDs and lovenox -Encourage patient to mobilize and use incentive spirometry -Progress patient's diet as tolerated: start patient on liquid diet -remove NG tube when output is <500ml in 24 hour period -monitor patient for bowel movements -monitor patient's pain level As above. will not start diet. expect ileus. continue TPN - prealbumen is low. Start wound vac today. MWS
[2020-06-08 08:54] LABS: Hemoglobin 14.1 g/dL (14.0-18.0); Mean Corpuscular HGB CONC 30.5 g/dL (32.0-36.0); Mean Corpuscular Hemoglobin 29.1 pg (27.0-31.0); Mean Corpuscular Volume 95.5 fL (78.0-98.0); Mean Platelet Volume 7.5 fL (7.4-10.4); Platelet Count 178 thou/uL (130-400); RBC Distribution Width 13.3 % (11.5-14.5); Red Blood Cell (RBC) Count 4.85 mill/uL (4.70-6.10); White Blood Cell (WBC) Count 13.4 thou/uL (4.8-10.8)
[2020-06-08] MEDS: Enoxaparin Sodium 40 MG/0.4 ML SYRINGE SC SCH ×2 (09:05→20:40)
[2020-06-08] MEDS: Famotidine/PF 20 mg/2ml Vial SLOW IVP SCH ×2 (09:05→20:40)
[2020-06-08 09:23] LABS: Band 24 % (5-11); Lymphocytes 5 % (21-51); MDiff Complete? YES; Monocytes 1 % (0-10); Neutrophil 66 % (42-75); Platelet Morphology Comment Appears Adequate; Polychromasia SLIGHT = 2-3 cells (100X) (0-2/hpf); Reactive Lymphocytes 4 % (0-10)
[2020-06-08] MEDS ORDERED: Ondansetron PF 4 MG/2 ML Vial IVP PRN (14:16)
[2020-06-08] MEDS ORDERED: Promethazine HCl 25 MG/ML VIAL IM PRN (14:16)
[2020-06-08] MEDS ORDERED: diphenhydrAMINE 50 MG/ML VIAL IM PRN (14:16)
[2020-06-08] MEDS ORDERED: Zolpidem Tartrate 5 MG TAB PO PRN (14:16)
[2020-06-08] MEDS ORDERED: diphenhydrAMINE 25 MG CAP PO PRN (14:16)
[2020-06-08] MEDS ORDERED: Naloxone HCl 0.4 mg/ml Vial IV PRN (14:16)
[2020-06-08] MEDS ORDERED: Communication Order-Pharmacy FS SCH (14:30)
[2020-06-08] MEDS: fentaNYL Citrate/PF 2,000 MCG in Sodium Chloride 0.9% 60 ML IV PRN (17:12)
[2020-06-08] MEDS: Carvedilol 25 MG TAB PO SCH (20:39)
[2020-06-08] MEDS: Amiodarone 200 MG TAB PO SCH (20:40)
[2020-06-08] MEDS: POTASSIUM CHLORIDE IV SCH (22:27)
[2020-06-08] MEDS: [UNRECOGNIZED DRUG - OTHER] IV SCH (22:27)
[2020-06-08] MEDS: D5 1/2 NS w/40 mEq KCL 1,000 ML IV SCH (22:27)
[2020-06-08] MEDS: FAT EMULSION IV SCH (22:27)
[2020-06-08] MEDS: MULTIVITAMINS IV SCH (22:27)
[2020-06-09] MEDS: Piperacillin/Tazobactam 4.5 GM in Sodium Chloride 0.9% 100 ML IVPB SCH ×4 (00:04→17:25)
[2020-06-09] MEDS: Insulin Regular 300 UNITS/3 ML VIAL SC PRN ×3 (00:07→18:33)
[2020-06-09 06:19] LABS: #Lymphocytes 0.8 thou/uL (1.20-3.40); #Monocytes 0.7 thou/uL (0.11-0.59); #Neutrophils 9.1 thou/uL (1.40-6.50); %Basophils 0.1 % (0.0-1.0); %Eosinophils 0.5 % (0.0-10.0); %Lymphocytes 7.5 % (21.0-51.0); %Monocytes 6.4 % (0.0-10.0); %Neutrophils 85.5 % (42.0-75.0); Hemoglobin 13.8 g/dL (14.0-18.0); Mean Platelet Volume 7.5 fL (7.4-10.4); Platelet Count 197 thou/uL (130-400); RBC Distribution Width 13.1 % (11.5-14.5); White Blood Cell (WBC) Count 10.6 thou/uL (4.8-10.8)
[2020-06-09 06:49] LABS: ALT (SGPT) 13 U/L (8-55); AST (SGOT) 18 U/L (5-34); Albumin 2.2 g/dL (3.4-4.8); Alkaline Phosphatase 60 U/L (40-110); Anion Gap 11 mmol/L (10-20); BUN (Urea Nitrogen) 17 mg/dL (8.4-25.7); Bilirubin, Total 0.6 mg/dL (0.2-1.2); Calc. Creatinine Clearance 184 mL/min (70-130); Calcium 7.9 mg/dL (7.8-10.44); Carbon Dioxide 33 mmol/L (23-31); Chloride 106 mmol/L (98-107); Globulin 3.3 g/dL (2.4-3.5); Glucose 181 mg/dL (80-115); Magnesium 2.5 mg/dL (1.6-2.6); Phosphorus 1.8 mg/dL (2.3-4.7); Potassium 3.9 mmol/L (3.5-5.1); Protein, Total 5.5 g/dL (5.8-8.1); Sodium 146 mmol/L (136-145)
--- NOTE | 2020-06-09 07:12 | PDOC.GSPN ---
Surgery Progress Note: Subj - Subjective Patient reports: feels better, positive flatus, no bowel movement, pain is less Narrative: Mr. Medeiros is a 69 year old M who is POD #2 from exploratory laparotomy for an enterocutaneous fistula that he developed following a laparoscopic assisted small bowel resection on 05/25/20 for a carcinoid tumor. Patient did well overnight. He reports he is doing much better than yesterday and slept well through the night. Pain level 2/10. He has not needed any prn meds. Patient reports flatus, but has not yet had a bowel movement. His [place] catheter was rem stephen this morning. Patient has not yet gotten out of bed. PT came by yesterday, but patient endorsed pain while trying to get up. Patient emphasizes he would like to get up and walk, but he is hesitant to do so due to his pain which will go up to 10/10 when trying to get up from bed. Patient denies any fever, chills, SOB, or chest pain. No new complaints. NG tube output overnight: 200 mL, JENNIFER drain output overnight: 125 mL. Surgery Progress Note: Obj - Vital signs Vital signs: Vital Signs - Most Recent Temp Pulse Resp BP Pulse Ox 98.1 F 68 16 137/74 94 L 06/09/20 03:00 06/09/20 03:00 06/09/20 03:00 06/09/20 03:00 06/09/20 03:00 - Physical Exam General: no distress, obese Cardiovascular: regular rate and rhythm Respiratory: clear to auscultation Abdomen: soft, non tender, positive bowel sounds Wound: drainage (JENNIFER drain put out 125 mL serosanginous fluid overnight), wound vac Surgery Progress Note: Results - Labs Result Diagrams: 06/09/20 06:10 06/09/20 06:10 Lab results: Laboratory Results - last 12 hr 06/08/20 06/09/20 06/09/20 23:35 05:22 06:10 WBC RBC Hgb Hct MCV MCH MCHC RDW Plt Count MPV Neutrophils % Lymphocytes % Monocytes % Eosinophils % Basophils % Neutrophils # Lymphocytes # Monocytes # Eosinophils # Basophils # Sodium Potassium Chloride Carbon Dioxide Anion Gap BUN Creatinine Estimated GFR (MDRD) Glucose POC Glucose 193 H 180 H Calcium Phosphorus Magnesium Total Bilirubin AST ALT Alkaline Phosphatase C-Reactive Protein 17.80 H Serum Total Protein Albumin Globulin Albumin/Globulin Ratio Prealbumin 06/09/20 06/09/20 06/09/20 06:10 06:10 06:11 WBC 10.6 RBC 4.60 L Hgb 13.8 L Hct 44.6 MCV 97.0 MCH 30.0 MCHC 31.0 L RDW 13.1 Plt Count 197 MPV 7.5 Neutrophils % 85.5 H Lymphocytes % 7.5 L Monocytes % 6.4 Eosinophils % 0.5 Basophils % 0.1 Neutrophils # 9.1 H Lymphocytes # 0.8 L Monocytes # 0.7 H Eosinophils # 0.0 Basophils # 0.0 Sodium 146 H Potassium 3.9 Chloride 106 Carbon Dioxide 33 H Anion Gap 11 BUN 17 Creatinine 0.83 Estimated GFR (MDRD) Greater than 90 Glucose 181 H POC Glucose Calcium 7.9 Phosphorus 1.8 L Magnesium 2.5 Total Bilirubin 0.6 AST 18 ALT 13 Alkaline Phosphatase 60 C-Reactive Protein Serum Total Protein 5.5 L Albumin 2.2 L Globulin 3.3 Albumin/Globulin Ratio 0.7 L Prealbumin 7.0 L Surgery Progress Note: A/P - Problem (1) Enterocutaneous fistula Current Visit: Yes Code(s): K63.2 - FISTULA OF INTESTINE Status: Acute - Plan Plan: Mr. Medeiros is a 69 year old M who is POD #2 from ex lap for enterocutaneous fistula following lap small bowel resection for carcinoid tumor. Overall, patient feeling much better today. Plan: 1. Continue pain management as needed 2. Remain on DVT prophylaxis w/ SCDs and Lovenox 3. Encourage patient to get OOB and ambulate as tolerated, PT consulted 4. Continue incentive spirometry 5. D/C NG tube today 6. Remain on TPN, phosphorous low at 1.8 - consider increasing phosphorous in TPN 7. Consider starting on clear liquid diet once NG tube removed
[2020-06-09] MEDS: Famotidine/PF 20 mg/2ml Vial SLOW IVP SCH ×2 (08:48→20:10)
[2020-06-09] MEDS: Enoxaparin Sodium 40 MG/0.4 ML SYRINGE SC SCH ×2 (08:48→20:11)
[2020-06-09] MEDS ORDERED: D5 1/4 NS w/20 mEq KCL 1,000 ML IV SCH (14:30)
[2020-06-09] MEDS: diphenhydrAMINE 50 MG/ML VIAL IVP PRN (16:49)
[2020-06-09] MEDS: Amiodarone 200 MG TAB PO SCH (20:09)
[2020-06-09] MEDS: Carvedilol 25 MG TAB PO SCH (20:10)
[2020-06-09] MEDS: FAT EMULSION IV SCH ×2 (22:09→23:45)
[2020-06-09] MEDS: POTASSIUM CHLORIDE IV SCH ×2 (22:09→23:45)
[2020-06-09] MEDS: [UNRECOGNIZED DRUG - OTHER] IV SCH (22:09)
[2020-06-09] MEDS: POTASSIUM PHOSPHATE IV SCH (22:09)
[2020-06-09] MEDS: [UNRECOGNIZED DRUG - OTHER] IV SCH (23:45)
[2020-06-09] MEDS: MULTIVITAMINS IV SCH (23:45)
[2020-06-10] MEDS: Piperacillin/Tazobactam 4.5 GM in Sodium Chloride 0.9% 100 ML IVPB SCH ×5 (00:18→23:04)
[2020-06-10] MEDS: fentaNYL Citrate/PF 2,000 MCG in Sodium Chloride 0.9% 60 ML IV PRN (05:58)
[2020-06-10 06:28] LABS: #Eosinphils 0.1 thou/uL (0.0-0.7); #Lymphocytes 0.8 thou/uL (1.20-3.40); #Monocytes 0.7 thou/uL (0.11-0.59); #Neutrophils 6.6 thou/uL (1.40-6.50); %Basophils 0.4 % (0.0-1.0); %Eosinophils 1.4 % (0.0-10.0); %Lymphocytes 10.2 % (21.0-51.0); %Monocytes 7.9 % (0.0-10.0); %Neutrophils 80.1 % (42.0-75.0); Hemoglobin 14.4 g/dL (14.0-18.0); Mean Corpuscular HGB CONC 31.3 g/dL (32.0-36.0); Mean Corpuscular Hemoglobin 30.3 pg (27.0-31.0); Mean Corpuscular Volume 96.8 fL (78.0-98.0); Mean Platelet Volume 7.2 fL (7.4-10.4); Platelet Count 184 thou/uL (130-400); RBC Distribution Width 13.1 % (11.5-14.5); Red Blood Cell (RBC) Count 4.76 mill/uL (4.70-6.10); White Blood Cell (WBC) Count 8.2 thou/uL (4.8-10.8)
[2020-06-10 06:49] LABS: Anion Gap 10 mmol/L (10-20); BUN (Urea Nitrogen) 18 mg/dL (8.4-25.7); Calc. Creatinine Clearance 201 mL/min (70-130); Carbon Dioxide 33 mmol/L (23-31); Chloride 106 mmol/L (98-107); Glucose 149 mg/dL (80-115); Sodium 145 mmol/L (136-145)
[2020-06-10 08:10] LABS: ALT (SGPT) 14 U/L (8-55); AST (SGOT) 22 U/L (5-34); Albumin 2.3 g/dL (3.4-4.8); Alkaline Phosphatase 80 U/L (40-110); Anion Gap 12 mmol/L (10-20); BUN (Urea Nitrogen) 19 mg/dL (8.4-25.7); Calc. Creatinine Clearance 207 mL/min (70-130); Calcium 7.9 mg/dL (7.8-10.44); Carbon Dioxide 31 mmol/L (23-31); Chloride 105 mmol/L (98-107); Globulin 3.2 g/dL (2.4-3.5); Glucose 154 mg/dL (80-115); Magnesium 2.4 mg/dL (1.6-2.6); Protein, Total 5.5 g/dL (5.8-8.1); Sodium 144 mmol/L (136-145)
[2020-06-10] MEDS: Enoxaparin Sodium 40 MG/0.4 ML SYRINGE SC SCH ×2 (09:20→20:52)
[2020-06-10] MEDS: Famotidine/PF 20 mg/2ml Vial SLOW IVP SCH ×2 (09:20→20:51)
[2020-06-10] MEDS: Insulin Regular 300 UNITS/3 ML VIAL SC PRN (18:09)
[2020-06-10] MEDS: Amiodarone 200 MG TAB PO SCH (20:52)
[2020-06-10] MEDS: Carvedilol 25 MG TAB PO SCH (20:52)
[2020-06-10] MEDS: FAT EMULSION IV SCH (23:04)
[2020-06-10] MEDS: POTASSIUM PHOSPHATE IV SCH (23:04)
[2020-06-10] MEDS: [UNRECOGNIZED DRUG - OTHER] IV SCH (23:04)
[2020-06-10] MEDS: POTASSIUM CHLORIDE IV SCH (23:04)
[2020-06-11] MEDS: Piperacillin/Tazobactam 4.5 GM in Sodium Chloride 0.9% 100 ML IVPB SCH ×4 (06:49→23:45)
[2020-06-11 07:32] LABS: ALT (SGPT) 22 U/L (8-55); AST (SGOT) 30 U/L (5-34); Albumin 2.3 g/dL (3.4-4.8); Alkaline Phosphatase 98 U/L (40-110); Anion Gap 12 mmol/L (10-20); BUN (Urea Nitrogen) 18 mg/dL (8.4-25.7); Bilirubin, Total 1.5 mg/dL (0.2-1.2); Calc. Creatinine Clearance 204 mL/min (70-130); Carbon Dioxide 28 mmol/L (23-31); Chloride 105 mmol/L (98-107); Globulin 3.3 g/dL (2.4-3.5); Glucose 131 mg/dL (80-115); Magnesium 2.3 mg/dL (1.6-2.6); Potassium 4.6 mmol/L (3.5-5.1); Protein, Total 5.6 g/dL (5.8-8.1); Sodium 140 mmol/L (136-145)
[2020-06-11 07:34] LABS: Phosphorus 2.6 mg/dL (2.3-4.7)
[2020-06-11] MEDS: Enoxaparin Sodium 40 MG/0.4 ML SYRINGE SC SCH ×2 (09:32→20:50)
[2020-06-11] MEDS: Famotidine/PF 20 mg/2ml Vial SLOW IVP SCH ×2 (09:32→20:49)
[2020-06-11] MEDS: fentaNYL Citrate/PF 2,000 MCG in Sodium Chloride 0.9% 60 ML IV PRN (15:17)
--- NOTE | 2020-06-11 17:01 | RAD ---
SUPINE ABDOMEN: 06/11/20 INDICATIONS: Abdominal pain. Possible ileus or small bowel obstruction. FINDINGS/IMPRESSION: NG tube passes through the EG junction and tip is located in the upper gastric fundus. Scattered colon gas. There are gas filled dilated loops of small bowel in the mid abdomen similar to prior exam of 06/03/20. POS: AGW
[2020-06-11] MEDS: diphenhydrAMINE 50 MG/ML VIAL IVP PRN (17:43)
[2020-06-11] MEDS: Carvedilol 25 MG TAB PO SCH (20:49)
[2020-06-11] MEDS: Amiodarone 200 MG TAB PO SCH (20:49)
[2020-06-11] MEDS: POTASSIUM PHOSPHATE IV SCH (22:15)
[2020-06-11] MEDS: FAT EMULSION IV SCH (22:15)
[2020-06-11] MEDS: POTASSIUM CHLORIDE IV SCH (22:15)
[2020-06-11] MEDS: [UNRECOGNIZED DRUG - OTHER] IV SCH (22:15)
[2020-06-12 04:21] LABS: #Eosinphils 0.1 thou/uL (0.0-0.7); #Lymphocytes 1.1 thou/uL (1.20-3.40); #Monocytes 0.7 thou/uL (0.11-0.59); #Neutrophils 4.2 thou/uL (1.40-6.50); %Basophils 0.4 % (0.0-1.0); %Eosinophils 1.1 % (0.0-10.0); %Monocytes 11.4 % (0.0-10.0); Hemoglobin 12.8 g/dL (14.0-18.0); Mean Corpuscular Hemoglobin 30.5 pg (27.0-31.0); Mean Corpuscular Volume 95.4 fL (78.0-98.0); Mean Platelet Volume 7.3 fL (7.4-10.4); Platelet Count 213 thou/uL (130-400); Red Blood Cell (RBC) Count 4.19 mill/uL (4.70-6.10)
[2020-06-12 04:43] LABS: Anion Gap 10 mmol/L (10-20); BUN (Urea Nitrogen) 17 mg/dL (8.4-25.7); Calc. Creatinine Clearance 210 mL/min (70-130); Calcium 7.9 mg/dL (7.8-10.44); Carbon Dioxide 26 mmol/L (23-31); Chloride 104 mmol/L (98-107); Glucose 134 mg/dL (80-115); Potassium 4.5 mmol/L (3.5-5.1); Sodium 135 mmol/L (136-145)
[2020-06-12] MEDS: Piperacillin/Tazobactam 4.5 GM in Sodium Chloride 0.9% 100 ML IVPB SCH ×4 (05:41→23:50)
[2020-06-12] MEDS: Famotidine/PF 20 mg/2ml Vial SLOW IVP SCH ×2 (09:18→21:28)
[2020-06-12] MEDS: Enoxaparin Sodium 40 MG/0.4 ML SYRINGE SC SCH ×2 (09:18→21:27)
--- NOTE | 2020-06-12 17:47 | PRG ---
DATE OF SERVICE: 06/12/2020 SUBJECTIVE: The patient is discouraged. He just feels very weak. He is really not having much pain or nausea, is voiding well, not really passing anything as bottom. He is on TPN. OBJECTIVE: VITAL SIGNS: His temperature is 98.2, pulse 84, and blood pressure 132/76. GENERAL: The patient is awake, alert, sitting in his chair. LUNGS: Clear. ABDOMEN: Obese, soft, and somewhat distended. He has wound VAC on. No cellulitis. LABORATORY DATA: White count 6, hemoglobin and hematocrit of 12 and 40, platelet count 213. Electrolytes are fine. Glucose level high at 150. He had a KUB done yesterday that showed this is scattered colon gas pattern. There are dilated loops of small bowel in the mid abdomen. ASSESSMENT: Stable. PLAN: Continue current treatment. Job ID: [id number]
[2020-06-12] MEDS: Insulin Regular 300 UNITS/3 ML VIAL SC PRN (18:19)
[2020-06-12] MEDS: Amiodarone 200 MG TAB PO SCH (21:28)
[2020-06-12] MEDS: Carvedilol 25 MG TAB PO SCH (21:28)
[2020-06-12] MEDS: FAT EMULSION IV SCH (22:30)
[2020-06-12] MEDS: POTASSIUM CHLORIDE IV SCH (22:30)
[2020-06-12] MEDS: [UNRECOGNIZED DRUG - OTHER] IV SCH (22:30)
[2020-06-12] MEDS: POTASSIUM PHOSPHATE IV SCH (22:30)
[2020-06-12] MEDS: fentaNYL Citrate/PF 2,000 MCG in Sodium Chloride 0.9% 60 ML IV PRN (22:31)
[2020-06-13] MEDS: Piperacillin/Tazobactam 4.5 GM in Sodium Chloride 0.9% 100 ML IVPB SCH ×4 (05:44→23:22)
[2020-06-13] MEDS: Famotidine/PF 20 mg/2ml Vial SLOW IVP SCH ×2 (08:42→20:50)
[2020-06-13] MEDS: Enoxaparin Sodium 40 MG/0.4 ML SYRINGE SC SCH ×2 (08:42→20:50)
--- NOTE | 2020-06-13 12:42 | PRG ---
DATE OF SERVICE: 06/13/2020 SUBJECTIVE: The patient reports pain along the right side. It is better, but it is such that it makes it difficult for him to get out of bed and move around. He does report a little bit of flatus, but not much. No nausea or vomiting. He has NG tube still and has put out 600 mL over the last 24 hours. He has two JENNIFER drains, JENNIFER drains putting out about 120 mL of serous fluid. Urine output is good at 2325. He has a wound VAC on. His white blood cell count is normal at 6, his H and H are 12 and 40, and platelet count of 213. ASSESSMENT: Status post colocutaneous fistula repair, doing well. PLAN: He might tolerate NG removal. I will let Dr. Troncoso do that tomorrow. Otherwise, continue current therapy. Job ID: [id number]
[2020-06-13] MEDS: Amiodarone 200 MG TAB PO SCH (20:49)
[2020-06-13] MEDS: Carvedilol 25 MG TAB PO SCH (20:49)
[2020-06-13] MEDS: POTASSIUM CHLORIDE IV SCH (23:00)
[2020-06-13] MEDS: [UNRECOGNIZED DRUG - OTHER] IV SCH (23:00)
[2020-06-13] MEDS: FAT EMULSION IV SCH (23:00)
[2020-06-13] MEDS: POTASSIUM PHOSPHATE IV SCH (23:00)
[2020-06-14] MEDS: fentaNYL Citrate/PF 2,000 MCG in Sodium Chloride 0.9% 60 ML IV PRN (04:43)
[2020-06-14] MEDS: Piperacillin/Tazobactam 4.5 GM in Sodium Chloride 0.9% 100 ML IVPB SCH ×3 (06:57→20:38)
[2020-06-14 07:23] LABS: #Eosinphils 0.1 thou/uL (0.0-0.7); #Monocytes 0.7 thou/uL (0.11-0.59); #Neutrophils 3.2 thou/uL (1.40-6.50); %Basophils 0.8 % (0.0-1.0); %Eosinophils 2.1 % (0.0-10.0); %Lymphocytes 19.9 % (21.0-51.0); %Monocytes 12.8 % (0.0-10.0); %Neutrophils 64.3 % (42.0-75.0); Mean Corpuscular HGB CONC 33.2 g/dL (32.0-36.0); Mean Corpuscular Hemoglobin 30.5 pg (27.0-31.0); Mean Platelet Volume 7.3 fL (7.4-10.4); Platelet Count 204 thou/uL (130-400); Red Blood Cell (RBC) Count 4.26 mill/uL (4.70-6.10)
[2020-06-14 07:39] LABS: ALT (SGPT) 24 U/L (8-55); AST (SGOT) 26 U/L (5-34); Albumin 2.5 g/dL (3.4-4.8); Alkaline Phosphatase 100 U/L (40-110); Anion Gap 13 mmol/L (10-20); BUN (Urea Nitrogen) 19 mg/dL (8.4-25.7); Bilirubin, Total 1.2 mg/dL (0.2-1.2); CRP (Inflammatory) 6.47 mg/dL (= or < 0.5); Calc. Creatinine Clearance 194 mL/min (70-130); Calcium 8.1 mg/dL (7.8-10.44); Carbon Dioxide 25 mmol/L (23-31); Chloride 101 mmol/L (98-107); Globulin 3.9 g/dL (2.4-3.5); Glucose 125 mg/dL (80-115); Magnesium 2.1 mg/dL (1.6-2.6); Phosphorus 2.8 mg/dL (2.3-4.7); Potassium 4.6 mmol/L (3.5-5.1); Protein, Total 6.4 g/dL (5.8-8.1); Sodium 134 mmol/L (136-145)
[2020-06-14 08:50] LABS: Cardiac Risk 9.6 (Less than 4.5)
[2020-06-14] MEDS: Enoxaparin Sodium 40 MG/0.4 ML SYRINGE SC SCH ×2 (08:55→20:39)
[2020-06-14] MEDS: Famotidine/PF 20 mg/2ml Vial SLOW IVP SCH ×2 (08:55→20:39)
[2020-06-14] MEDS ORDERED: Morphine 4 MG/ML VIAL SLOW IVP PRN (09:14)
[2020-06-14] MEDS ORDERED: Morphine 2 MG/ML VIAL SLOW IVP PRN (09:14)
[2020-06-14 09:30] LABS: INR-International Normal Ratio 1.1; PTT 30.6 sec (22.9-36.1); Prothrombin Time 13.9 sec (12.0-14.7)
[2020-06-14] MEDS: D5 1/2 NS w/20 mEq KCL 1,000 ML IV SCH (10:28)
[2020-06-14] MEDS ORDERED: MD-Gastroview 120 ML BOT ONE (13:19)
--- NOTE | 2020-06-14 13:46 | RAD ---
Exam: Gastrografin small bowel HISTORY: Evaluate for small bowel obstruction. COMPARISON: 06/02/2020. 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 Nasogastric tube is n oted in the stomach. Gastrografin was administered. Gastrografin opacified the small bowel loops on the 2 hour image. IMPRESSION: No evidence of high-grade obstruction. Transcribed Date/Time: 06/14/2020 2:09 PM
[2020-06-14] MEDS: Carvedilol 25 MG TAB PO SCH (20:48)
[2020-06-14] MEDS: Amiodarone 200 MG TAB PO SCH (20:48)
[2020-06-14] MEDS: POTASSIUM CHLORIDE IV SCH (22:53)
[2020-06-14] MEDS: FAT EMULSION IV SCH (22:53)
[2020-06-14] MEDS: [UNRECOGNIZED DRUG - OTHER] IV SCH (22:53)
[2020-06-14] MEDS: POTASSIUM PHOSPHATE IV SCH (22:53)
[2020-06-15] MEDS: Piperacillin/Tazobactam 4.5 GM in Sodium Chloride 0.9% 100 ML IVPB SCH ×2 (00:53→09:00)
[2020-06-15] MEDS: Insulin Regular 300 UNITS/3 ML VIAL SC PRN (05:47)
[2020-06-15 07:05] LABS: ALT (SGPT) 23 U/L (8-55); AST (SGOT) 23 U/L (5-34); Albumin 2.5 g/dL (3.4-4.8); Alkaline Phosphatase 114 U/L (40-110); Anion Gap 13 mmol/L (10-20); BUN (Urea Nitrogen) 17 mg/dL (8.4-25.7); Calc. Creatinine Clearance 189 mL/min (70-130); Calcium 8.4 mg/dL (7.8-10.44); Carbon Dioxide 26 mmol/L (23-31); Chloride 104 mmol/L (98-107); Glucose 118 mg/dL (80-115); Phosphorus 2.7 mg/dL (2.3-4.7); Potassium 4.5 mmol/L (3.5-5.1); Protein, Total 6.5 g/dL (5.8-8.1); Sodium 138 mmol/L (136-145)
--- NOTE | 2020-06-15 07:11 | PDOC.GSPN ---
Surgery Progress Note: Subj - Subjective Patient reports: no new complaints, had a bowel movement, feels better, positive flatus, tolerating liquids well, voiding w/o difficulty, pain is less Narrative: Mr. Medeiros is a 69 year old M who is POD #8 from ex lap for enterocutaneous fistula that he developed following lap assisted small bowel resection on 05/25/20 for carcinoid tumor. The patient reports doing well overnight. He denies any fever, chills, nausea, vomiting, CP, or SOB. Current pain level 3/10. He reports intermittent midline abdominal pain which he describes as sharp and feeling flatulent as if he needs to have a bowel movement. He reports 2 watery bowel movements since yesterday. He is able to walk around his room and to the bathroom. He continues to work with PT. NG tube was removed yesterday. He is tolerating clear liquids well. He remains on TPN and fluids. Surgery Progress Note: Obj - Vital signs Vital signs: Vital Signs - Most Recent Temp Pulse Resp BP Pulse Ox 97.9 F 63 18 147/76 H 95 06/15/20 04:00 06/15/20 04:00 06/15/20 04:00 06/15/20 04:00 06/15/20 04:00 - Physical Exam General: no distress, obese Cardiovascular: regular rate and rhythm Respiratory: clear to auscultation, normal expansion, normal respiratory effort Abdomen: non tender, positive bowel sounds, distended (mildly distended) Wound: dressing clean,dry,intact, healing well, drainage (JENNIFER drain put out 95 mL serous fluid overnight), wound vac Surgery Progress Note: Results - Labs Result Diagrams: 06/14/20 06:50 06/15/20 06:29 Lab results: Laboratory Results - last 12 hr 06/15/20 06/15/20 00:41 05:21 POC Glucose 153 H 161 H Surgery Progress Note: A/P - Problem (1) Enterocutaneous fistula Current Visit: Yes Code(s): K63.2 - FISTULA OF INTESTINE Status: Acute Assessment and Plan: Mr. Medeiros is a 69 year old M POD #8 from ex lap for enterocutaneous fistula developed after a lap assisted small bowel resection for carcinoid tumor. Patient is improving. He is now ambulatory and tolerating clear liquid diet. NG tube removed yesterday. Plan: 1. Continue pain management as needed 2. Remain on DVT prophylaxis w/ SCDs and Lovenox 3. Encourage patient to remain ambulatory 4. Continue incentive spirometry 5. Continue clear liquid diet 6. Remain on TPN for now, if patient continues to tolerate clear liquids, consider weaning off of TPN
[2020-06-15] MEDS ORDERED: HYDROcodone/Acetaminophen 7.5/325 mg Tablet PO PRN (08:08)
[2020-06-15] MEDS: Enoxaparin Sodium 40 MG/0.4 ML SYRINGE SC SCH ×2 (08:59→21:47)
[2020-06-15] MEDS: Famotidine/PF 20 mg/2ml Vial SLOW IVP SCH (09:01)
[2020-06-15] MEDS: D5 1/2 NS w/20 mEq KCL 1,000 ML IV SCH (09:06)
[2020-06-15] MEDS ORDERED: Morphine 4 MG/ML VIAL SLOW IVP PRN (09:22)
[2020-06-15] MEDS ORDERED: Morphine 2 MG/ML VIAL SLOW IVP PRN (09:22)
[2020-06-15 11:19] VITALS: BMI 42.7
[2020-06-15] MEDS: Carvedilol 25 MG TAB PO SCH (21:34)
[2020-06-15] MEDS: Famotidine 20 MG TAB PO SCH (21:34)
[2020-06-15] MEDS: POTASSIUM PHOSPHATE IV SCH (21:45)
[2020-06-15] MEDS: [UNRECOGNIZED DRUG - OTHER] IV SCH (21:45)
[2020-06-15] MEDS: POTASSIUM CHLORIDE IV SCH (21:45)
[2020-06-15] MEDS: FAT EMULSION IV SCH (21:45)
[2020-06-15] MEDS: Amiodarone 200 MG TAB PO SCH (22:23)
[2020-06-16] MEDS: Famotidine 20 MG TAB PO SCH ×2 (09:11→20:53)
[2020-06-16] MEDS: Enoxaparin Sodium 40 MG/0.4 ML SYRINGE SC SCH ×2 (09:11→20:54)
[2020-06-16] MEDS: Carvedilol 25 MG TAB PO SCH (20:53)
[2020-06-16] MEDS: Amiodarone 200 MG TAB PO SCH (20:54)
[2020-06-16] MEDS ORDERED: [UNRECOGNIZED DRUG - OTHER] IV SCH (22:00)
[2020-06-16] MEDS ORDERED: FAT EMULSION IV SCH (22:00)
[2020-06-16] MEDS ORDERED: POTASSIUM PHOSPHATE IV SCH (22:00)
[2020-06-16] MEDS ORDERED: POTASSIUM CHLORIDE IV SCH (22:00)
[2020-06-17] MEDS: Enoxaparin Sodium 40 MG/0.4 ML SYRINGE SC SCH (08:30)
[2020-06-17] MEDS: Famotidine 20 MG TAB PO SCH (08:30)
[2020-06-17 12:04] VITALS: BP 114/64; TEMP 98.1
--- NOTE | 2020-06-19 02:46 | PQF ---
CLINICAL DOCUMENTATION CLARIFICATION FORM: Dear : Bradley Troncoso Date / Time: 06/19/2020 Please exercise your independent, professional judgment in responding to the clarification form. Clinical indicators are provided on the bottom of this form for your review ___ Final Diagnosis on the Pathology report: Small bowel perforation with associated acute peritonitis Please check appropriate box(es): [x ] Agree w the pathology finding of: Small bowel perforation with associated acute peritonitis [ ] Other diagnosis [ ] Unable to determine To be completed by CDI/Coding staff for physician review: Present Clinical Indicators - Signs / Symptoms / Labs Results and Location in Medical Record [ x ] Ileum and cecum, resection: Small bowel perforation with associated acute peritonitis Pathology report 06/07 [ x ] Wound opened up and started draining. The drainage was clear in color, slightly yellowish and I felt that this was likely fat necrosis. 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
== END 2020-06-17 14:03 | disposition home or self-care (01) | DRG 907 ==
LOC: ERS 23:06 → SJJU 06-06 00:56
PROVIDERS: ADMIT Surgery; ATTEND Surgery
PROC: 0WJG4ZZ Inspection of Peritoneal Cavity, Percutaneous Endoscopic Approach (ICD-10-PCS; principal; 2020-06-07)
PROC: 0DBH0ZZ Excision of Cecum, Open Approach (ICD-10-PCS; 2020-06-07)
PROC: 0DBB0ZZ Excision of Ileum, Open Approach (ICD-10-PCS; 2020-06-07)
PROC: 02HV33Z Insertion of Infusion Device into Superior Vena Cava, Percutaneous Approach (ICD-10-PCS; 2020-06-07)
PROC: B5181ZA Fluoroscopy of Superior Vena Cava using Low Osmolar Contrast, Guidance (ICD-10-PCS; 2020-06-07)
PROC: B548ZZA Ultrasonography of Superior Vena Cava, Guidance (ICD-10-PCS; 2020-06-07)
PROC: 3E0336Z Introduction of Nutritional Substance into Peripheral Vein, Percutaneous Approach (ICD-10-PCS; 2020-06-07)
DX: T81.83XA Persistent postprocedural fistula, initial encounter (principal); K63.1 Perforation of intestine (nontraumatic); K65.8 Other peritonitis; K63.2 Fistula of intestine; K56.609 Unspecified intestinal obstruction, unspecified as to partial versus complete obstruction; Z68.41 Body mass index [BMI] 40.0-44.9, adult; E66.01 Morbid (severe) obesity due to excess calories; Z20.828 Contact with and (suspected) exposure to other viral communicable diseases; G47.33 Obstructive sleep apnea (adult) (pediatric); I25.10 Atherosclerotic heart disease of native coronary artery without angina pectoris; I48.91 Unspecified atrial fibrillation; E11.9 Type 2 diabetes mellitus without complications; Z95.810 Presence of automatic (implantable) cardiac defibrillator; Z90.49 Acquired absence of other specified parts of digestive tract; Z79.82 Long term (current) use of aspirin; Z79.01 Long term (current) use of anticoagulants
CPT/HCPCS: 36415; 36416; 36569; 71045; 74018; 74177; 74250; 80048; 80053; 80061; 81003; 83605; 83690; 83735; 84100; 84134; 85025; 85610; 85730; 86140; 87040; 87077; 87086; 87186; 87635; 88307; 96365; 96368; 96375; C1751; J1100; J1200; J1644; J1650; J1815; J2250; J2270; J2405; J2543; J3010; J3370; J3480; J3490; J7042; J7070; Q0163; Q9963; Q9967; S0020; S0028; U0003

== ENCOUNTER 2020-08-12 11:01 | Inpatient (IN) | payer MEDICARE ==
[2020-08-12 11:45] LABS: #Eosinphils 0.1 thou/uL (0.0-0.7); #Lymphocytes 0.9 thou/uL (1.20-3.40); #Monocytes 0.7 thou/uL (0.11-0.59); #Neutrophils 7.2 thou/uL (1.40-6.50); %Basophils 0.2 % (0.0-1.0); %Eosinophils 0.9 % (0.0-10.0); %Lymphocytes 10.1 % (21.0-51.0); %Monocytes 8.3 % (0.0-10.0); %Neutrophils 80.5 % (42.0-75.0); Hemoglobin 12.9 g/dL (14.0-18.0); Mean Corpuscular HGB CONC 34.5 g/dL (32.0-36.0); Mean Corpuscular Hemoglobin 29.6 pg (27.0-31.0); Mean Platelet Volume 7.1 fL (7.4-10.4); Platelet Count 224 thou/uL (130-400); RBC Distribution Width 13.6 % (11.5-14.5); Red Blood Cell (RBC) Count 4.36 mill/uL (4.70-6.10)
--- NOTE | 2020-08-12 11:46 | RAD ---
XR Chest 1 View Portable HISTORY: Dyspnea COMPARISON: 06/06/2020 FINDINGS: The heart size is normal. Changes of median sternotomy and left-sided pacemaker device are again seen The lungs are well expanded without focal areas of consolidation, pneumothorax or pleural effusions. IMPRESSION: No radiographic evidence of acute cardiopulmonary process.
[2020-08-12 12:03] LABS: ALT (SGPT) 10 U/L (8-55); AST (SGOT) 14 U/L (5-34); Albumin 3.8 g/dL (3.4-4.8); Alkaline Phosphatase 106 U/L (40-110); Anion Gap 21 mmol/L (10-20); Bilirubin, Total 0.6 mg/dL (0.2-1.2); Calc. Creatinine Clearance 0 mL/min (70-130); Calcium 9.3 mg/dL (7.8-10.44); Carbon Dioxide 17 mmol/L (23-31); Chloride 96 mmol/L (98-107); Glucose 159 mg/dL (80-115); Potassium 5.2 mmol/L (3.5-5.1); Protein, Total 7.8 g/dL (5.8-8.1); Sodium 129 mmol/L (136-145)
[2020-08-12 12:21] LABS: BUN (Urea Nitrogen) 135 mg/dL (8.4-25.7)
--- NOTE | 2020-08-12 15:36 | PDOC.HHP ---
Hospitalist HPI abnormal labs, purulent leg wounds History of Present Illness: This is a [id number] with a PMH of CABG, CHF, CKD II, metabolic syndrome, lymphedema s/p s/p ex lap for enterocutaneous fistula who presented to the ER after his home health nurse did blood work on him and told him that his creatinine was elevated. The states he had diarrhea for approximately one month after his surgery. He also had problems with swelling in his legs for which he was placed on torsemide and another diuretic which they don't recall the name of. He has lost 60 pounds since then and his leg swelling has improved, however due to his immobile status he developed ulcers on his left calf and right foot and has been seeing wound care as an outpatient. Last week, he developed purulent drainage from his wounds and cellulitis of his right leg and was placed on augmentin for one week which he finished yesterday. He reports no significant improvement in his wounds or right lower extremity pain. Over the past few days, his urine output has been decreasing and he reports nausea and one episode of vomiting today. He denies fevers, chills, or abdominal pain. ED Course: When the patient presented to the ER, he had temp of 97.8, BP of 100/58, rest of vitals were normal. Labs showed a normal white count. BMP showed sodium 129, potassium 5.2, creatinine of 4.61. Chest Xray showed no acute disease. The pat ient was given IV fluids and admitted for further workup. Allergies/Adverse Reactions: Allergy/AdvReac Type Severity Reaction Status Date / Time No Known Allergies Allergy Verified 06/06/20 02:59 Home Medications: Medication Instructions Recorded Confirmed Type Apixaban [Eliquis] 5 mg PO BID 11/12/17 08/12/20 History Acetaminophen [Tylenol] 975 mg PO Q8HR PRN 05/24/20 08/12/20 History Amiodarone HCl 100 mg PO HS 05/24/20 08/12/20 History Ascorbic Acid [Vitamin C] 500 mg PO DAILY 05/24/20 08/12/20 History Aspirin [Aspirin EC] 81 mg PO DAILY 05/24/20 08/12/20 History Carvedilol 50 mg PO HS 05/24/20 08/12/20 History Cranberry Conc/Ascorbic Acid 1 each PO HS 05/24/20 08/12/20 History [Cranberry Plus Vitamin C Sftgl] Empagliflozin [Jardiance] 5 mg PO QPM 05/24/20 08/12/20 History Red Yeast Rice 600 mg PO QPM 05/24/20 08/12/20 History Sacubitril/Valsartan 49/51 0.5 tab PO QAM 05/24/20 08/12/20 History [Entresto 49 mg-51 mg Tablet] Sacubitril/Valsartan 49/51 1 tab PO QPM 05/24/20 08/12/20 History [Entresto 49 mg-51 mg Tablet] Torsemide 200 mg PO DAILY PRN 05/24/20 08/12/20 History Potassium Chloride 1 cap DAILY 08/12/20 08/12/20 History Past History: PMHx: CKD ICD Problem Afib CANDACE HLD CAD Brain mass HTN CHF DMII Morbid Obesity GERD 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 Social: Denies smoking, hasn't had a drink since May. Prior to May drinks "a few". Denies illicit drug use. Hospitalist VENESSA RAMESH Constitutional: reports: malaise. denies: fever (generalized discomfort hard to assess; is in pain all over), chills, sweats, weakness Eyes: denies: pain, vision change, conjunctivae inflammation, eyelid inflammation, redness ENT: denies: ear pain, ear discharge, nose pain, nose discharge, nose congestion, mouth pain, mouth swelling, throat pain, throat swelling Respiratory: reports: SOB with excertion. denies: cough, hemoptysis, pleuritic pain, sputum, wheezing Cardiovascular: reports: orthopnea (mainly from back pain vs CHF), edema. denies: chest pain, palpitations, paroxysmal noc. dyspnea, light headedness Gastrointestinal: reports: vomiting (past couple days caused by other factors). denies: nausea, abdominal pain, diarrhea, constipation, melena, hematochezia Genitourinary: denies: dysuria, frequency, incontinence, hematuria, retention Musculoskeletal: reports: shoulder pain (a little bit from being sedentary), back pain, leg pain, foot pain. denies: neck pain, arm pain, hand pain Skin: reports: lesions (from leg wounds). denies: rash, greg, bruising Neurological: reports: weakness (when first getting up in the morning). denies: numbness, incoordination, change in speech, confusion, seizures Hospitalist Exam General Appearance: NAD, awake alert ENT: normocephalic atraumatic, moist mucosa Neck: supple, symmetric Heart: RRR, no murmur, no gallops, no rubs Respiratory: CTAB, no wheezes, no rales, no ronchi Gastrointestinal: normal bowel sounds, no guarding Extremities: no clubbing, 2+ LE edema Extremities - other findings: extensive erythema worst on right leg. Lymphedema bilaterally Skin: normal turgor Skin - other findings: ulcer left posterior calf with purulent drainage. Right foot ulcer Neurological: cranial nerve grossly intact. negative: speech deficit Psychiatric: normal affect, normal behavior, A&O x 3, oriented to person, oriented to place, oriented to time Hospitalist Results Result Diagrams: 08/12/20 11:37 08/12/20 11:37 Lab results: Laboratory Last Values WBC 9.0 thou/uL (4.8-10.8) 08/12/20 11:37 RBC 4.36 mill/uL (4.70-6.10) L 08/12/20 11:37 Hgb 12.9 g/dL (14.0-18.0) L 08/12/20 11:37 Hct 37.5 % (42.0-52.0) L 08/12/20 11:37 MCV 86.0 fL (78.0-98.0) 08/12/20 11:37 MCH 29.6 pg (27.0-31.0) 08/12/20 11:37 MCHC 34.5 g/dL (32.0-36.0) 08/12/20 11:37 RDW 13.6 % (11.5-14.5) 08/12/20 11:37 Plt Count 224 thou/uL (130-400) 08/12/20 11:37 MPV 7.1 fL (7.4-10.4) L 08/12/20 11:37 Neutrophils % 80.5 % (42.0-75.0) H 08/12/20 11:37 Lymphocytes % 10.1 % (21.0-51.0) L 08/12/20 11:37 Monocytes % 8.3 % (0.0-10.0) 08/12/20 11:37 Eosinophils % 0.9 % (0.0-10.0) 08/12/20 11:37 Basophils % 0.2 % (0.0-1.0) 08/12/20 11:37 Neutrophils # 7.2 thou/uL (1.40-6.50) H 08/12/20 11:37 Lymphocytes # 0.9 thou/uL (1.20-3.40) L 08/12/20 11:37 Monocytes # 0.7 thou/uL (0.11-0.59) H 08/12/20 11:37 Eosinophils # 0.1 thou/uL (0.0-0.7) 08/12/20 11:37 Basophils # 0.0 thou/uL (0.0-0.2) 08/12/20 11:37 Sodium 129 mmol/L (136-145) L 08/12/20 11:37 Potassium 5.2 mmol/L (3.5-5.1) H 08/12/20 11:37 Chloride 96 mmol/L (98-107) L 08/12/20 11:37 Carbon Dioxide 17 mmol/L (23-31) L 08/12/20 11:37 Anion Gap 21 mmol/L (10-20) H 08/12/20 11:37 BUN 135 mg/dL (8.4-25.7) H 08/12/20 11:37 Creatinine 4.61 mg/dL (0.7-1.3) H 08/12/20 11:37 Estimated GFR (MDRD) 13 08/12/20 11:37 Glucose 159 mg/dL (80-115) H 08/12/20 11:37 Calcium 9.3 mg/dL (7.8-10.44) 08/12/20 11:37 Total Bilirubin 0.6 mg/dL (0.2-1.2) 08/12/20 11:37 AST 14 U/L (5-34) 08/12/20 11:37 ALT 10 U/L (8-55) 08/12/20 11:37 Alkaline Phosphatase 106 U/L (40-110) 08/12/20 11:37 B-Natriuretic Peptide 56.2 pg/mL (0-100) 08/12/20 11:37 Serum Total Protein 7.8 g/dL (5.8-8.1) 08/12/20 11:37 Albumin 3.8 g/dL (3.4-4.8) 08/12/20 11:37 Globulin 4.0 g/dL (2.4-3.5) H 08/12/20 11:37 Albumin/Globulin Ratio 1.0 g/dL (1.2-2.2) L 08/12/20 11:37 Hospitalist H&P A/P Plan: This is a 69 year old male who presented to the ER with abnormal labs and increasing purulence from wounds #Acute renal failure - likely secondary to excessive diuretics. Will hold torsemide. Creatinine is up to 4.65. Nephrology consulted - will do gentle IV hydration - continue to trend BMP #RLE cellulitis #Left leg purulent ulcer - s/p course of augmentin as an o utpatient. Will order vancomycin and cefazolin - check wound culture. Wound care consult is in place Hyponatremia - sodium is 129. Will administer IV fluids. Hold diuretics Hyperkalemia - potassium is up to 5.2. Will administer IV fluids and reassess in am Atrial fibrillation - continue amiodarone and eliquis CHF - will hold entresto and diuretics for now CHronic diarrhea secondary to bowel resection - will order cholestyramine Type II diabetes - continue diabetic diet, insulin sliding scale
[2020-08-12] MEDS ORDERED: ceFAZolin 1 GM/D5W 1 GM in Premix Bag 1 BAG IVPB SCH (16:00)
[2020-08-12 17:48] VITALS: BMI 38.7
[2020-08-12] MEDS: Sodium Chloride 0.9% 1,000 ML IV SCH (18:16)
[2020-08-12] MEDS: traMADol HCl 50 MG TAB PO PRN (18:37)
[2020-08-12] MEDS ORDERED: Cholestyramine/Aspartame 4 gm Packet PO SCH (19:45)
[2020-08-12] MEDS ORDERED: Pharmacy to Dose VANCOMYCIN/RENALLY ADJ ANTIBIOTICS IVPB PRN (20:02)
--- NOTE | 2020-08-12 20:12 | RAD ---
RIGHT TIBIA AND FIBULA TWO VIEWS: 08/12/20 HISTORY: Right leg pain and swelling. Marked arthritic changes of the knee. Severe tricompartment changes. No joint effusion. No fracture o r other bony findings. IMPRESSION: No acute findings. POS: SEE
--- NOTE | 2020-08-12 20:20 | RAD ---
RIGHT FOOT THREE VIEWS: 08/12/20 HISTORY: Foot ulcer. Calcaneal spurs are present. There is soft tissue swelling involving the foot. There appears to be a small osteochondral lesion of the talar dome. I do not see any definitive plain film evidence for ost eomyelitis. IMPRESSION: No plain film evidence of osteomyelitis. POS: SEE
--- NOTE | 2020-08-12 20:22 | RAD ---
LEFT TIBIA AND FIBULA TWO VIEWS: 08/12/20 HISTORY: Calf ulcer. There is soft tissue swelling seen. This is more noticeable anteriorly. There are marked arthritic ch anges of the knee. There is no underlying evidence for osteomyelitis. IMPRESSION: No plain film evidence for osteomyelitis. POS: SEE
[2020-08-12] MEDS: Apixaban 5 MG TAB PO SCH (20:57)
[2020-08-12] MEDS: Amiodarone 200 MG TAB PO SCH (20:57)
[2020-08-12] MEDS: ceFAZolin 1 GM/D5W 1 GM in Premix Bag 1 BAG IVPB SCH (20:59)
[2020-08-12] MEDS ORDERED: VANCOMYCIN 2 GRAM/400 ML BAG 2 GM in Premix Bag 1 BAG IVPB SCH (21:00)
[2020-08-12 21:50] LABS: Creatinine, Urine 76.62 mg/dL (63-166); Protein, Urine Random Quant Less than 10 mg/dL (1-14)
--- NOTE | 2020-08-12 23:03 | ULT ---
Bilateral renal ultrasound CLINICAL INDICATION: Acute renal insufficiency. COMPARISON: None. FINDINGS: Right kidney: There is no evidence of a renal mass, renal calculus, or hydronephrosis seen. The right kidney measures 13.5 cm x 6.7 cm. Left kidney: A 0.7 cm echogenic focus is seen in the inferior pole left kidney. This does not demonst rate posterior shadowing to definitely suggest that this represents a calculus. This may represent a prominent vessel. No mass or hydronephrosis is seen. The left kidney measures 13.5 cm x 7 cm. Urinary bladder: Within normal limits for degree of distention. Ureteral jets are seen bilaterally on color flow evaluation. IMPRESSION: No evidence of hydronephrosis.
--- NOTE | 2020-08-13 01:07 | CON ---
DATE OF CONSULTATION: 08/12/2020 CONSULTING PHYSICIAN: Leandra Brewer MD REASON FOR CONSULTATION: Acute kidney injury. REASON FOR ADMISSION: Abnormal labs. HISTORY OF PRESENT ILLNESS: A 69-year-old male with history of CKD, CHF, and lymphedema, came to the hospital with abnormal labs. No fever or chills. No nausea or vomiting. No chest pain or palpitation. PAST MEDICAL HISTORY: Positive for CKD, atrial fibrillation, obstructive sleep apnea, hyperlipidemia, coronary artery disease, hypertension, CHF, and type 2 diabetes. PAST SURGICAL HISTORY: CABG, abdominal tumor resection, and back surgery. HOME MEDICATIONS: Reviewed. ALLERGIES: NO KNOWN DRUG ALLERGIES. SOCIAL HISTORY: No smoking, alcohol, or illicit drugs abuse. FAMILY HISTORY: No history of kidney disease. REVIEW OF SYSTEMS: CONSTITUTIONAL: Negative for weight loss or gain, ability to conduct usual activities. SKIN: Negative for rash, itching. EYES: Negative for double vision, pain. ENT/MOUTH: Negative for nose bleeding, neck stiffness, pain, tenderness. CARDIOVASCULAR: Negative for palpitations, dyspnea on exertion, orthopnea. RESPIRATORY: Negative for shortness of breath, wheezing, cough, hemoptysis, fever or night sweats. GASTROINTESTINAL: Negative for poor appetite, abdominal pain, heartburn, nausea, vomiting, constipation, or diarrhea. GENITOURINARY: Negative for urgency, frequency, dysuria, nocturia. MUSCULOSKELETAL: Negative for pain, swelling. NEUROLOGIC/PSYCHIATRIC: Negative for anxiety, depression. ALLERGY/IMMUNOLOGIC: Negative for skin rash, bleeding tendency. PHYSICAL EXAMINATION: GENERAL: This is a well-built male, in no apparent distress. VITAL SIGNS: Temperature 97.5, pulse 65, respiratory rate 18, and blood pressure 111/70. HEENT: Atraumatic, normocephalic. Oral mucosa moist. NECK: Supple. CV: S1 and S2 heard. RESPIRATORY: Clear. GI: Abdomen is soft. MUSCULOSKELETAL: 2+ edema. DERMATOLOGIC: No skin rash. NEUROLOGIC: Alert and awake. PSYCHIATRIC: Mood and affect normal. LABORATORY DATA: Hemoglobin is 12.9. Potassium is 5.2, BUN is 135, and creatinine is 4.7. ASSESSMENT AND PLAN: 1. Acute kidney injury on chronic kidney disease stage 3, most likely from volume depletion. Agree with hydration with close monitoring of fluid status. 2. Acidosis continue IV fluids. 3. Hyperkalemia, limit potassium. 4. Obesity. 5. Hypoalbuminemia. 6. Anemia. 7. Chronic edema Check urine studies. Avoid nephrotoxins. Continue supportive care including IV fluids. We will check renal ultrasound and monitor. Thank you for the consult. Job ID: [id number] MTDD
[2020-08-13] MEDS: Sodium Chloride 0.9% 1,000 ML IV SCH ×2 (05:55→08:16)
[2020-08-13 05:57] LABS: Hemoglobin 11.5 g/dL (14.0-18.0); Mean Corpuscular Hemoglobin 30.2 pg (27.0-31.0); Mean Corpuscular Volume 86.3 fL (78.0-98.0); Mean Platelet Volume 7.2 fL (7.4-10.4); Platelet Count 187 thou/uL (130-400); RBC Distribution Width 13.5 % (11.5-14.5); White Blood Cell (WBC) Count 9.4 thou/uL (4.8-10.8)
[2020-08-13 06:06] LABS: Anion Gap 17 mmol/L (10-20); BUN (Urea Nitrogen) 117 mg/dL (8.4-25.7); Calc. Creatinine Clearance 49 mL/min (70-130); Calcium 8.7 mg/dL (7.8-10.44); Carbon Dioxide 20 mmol/L (23-31); Chloride 101 mmol/L (98-107); Glucose 121 mg/dL (80-115); Potassium 4.2 mmol/L (3.5-5.1); Sodium 134 mmol/L (136-145)
[2020-08-13] MEDS: traMADol HCl 50 MG TAB PO PRN ×3 (06:10→20:03)
[2020-08-13] MEDS: Aspirin 81 mg Enteric Coated Tablet PO SCH (08:09)
[2020-08-13] MEDS: Ascorbic Acid 500 mg Chewable Tablet PO SCH (08:10)
[2020-08-13] MEDS: ceFAZolin 1 GM/D5W 1 GM in Premix Bag 1 BAG IVPB SCH ×2 (08:10→20:00)
[2020-08-13] MEDS: Apixaban 5 MG TAB PO SCH ×2 (08:10→20:04)
[2020-08-13] MEDS: Cholestyramine/Aspartame 4 gm Packet PO SCH ×2 (10:33→20:04)
[2020-08-13] MEDS ORDERED: Ondansetron ODT 4 MG TAB PO PRN (11:29)
[2020-08-13] MEDS ORDERED: Ondansetron PF 4 MG/2 ML Vial IVP PRN (11:29)
[2020-08-13] MEDS ORDERED: Calcium Carbonate 500 MG ChewTAB PO PRN (11:29)
[2020-08-13] MEDS ORDERED: Acetaminophen 325 MG TAB PO PRN (11:29)
--- NOTE | 2020-08-13 15:11 | CON ---
DATE OF CONSULTATION: 08/13/2020 REASON FOR CONSULTATION: Cellulitis in the lower extremity. 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 This required reintervention with laparotomy and reanastomosis after resection of the involved segment. The patient did well after that except for some diarrhea, but now presents with progressively worsening inflammatory changes in the left leg. He had been started on compressive dressings at home 2 weeks before by his PCP. He had some ulcers, one on each side, but the left side became inflamed. He is admitted. Tibia-fibula x-rays were done, which did not show any osteolysis or osteomyelitis. Currently, he does not appear in acute distress. No headaches, visual symptoms, sore throat, odynophagia, or dysphagia. No dyspnea or cough. No abdominal pain. Voiding without difficulty. Still with diarrhea. No joint symptoms. No neurological symptoms. PAST MEDICAL HISTORY: 1. Coronary artery disease. 2. Ischemic cardiomyopathy. 3. AICD. 4. Atrial fibrillation. 5. CANDACE. 6. Obesity. 7. Venous insufficiency. 8. Stasis ulcers. SOCIAL HISTORY: Never smoker. . Lives in [place]. 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 ALLERGIES: NONE. CURRENT MEDICATIONS: 1. Cordarone. 2. Eliquis. 3. Vitamin C. 4. Ecotrin. 5. Tums. 6. Cefazolin, adjusted for renal function. 7. Questran. 8. Vancomycin. PHYSICAL EXAMINATION: VITAL SIGNS: T-max 98.3. Other vital signs are normal. O2 saturation 95. SKIN: I do not have photos here yet from the skin. They have yet to be uploaded, but I did not remove the dressing. Remainder of his skin exam was not particularly remarkable. He has peripheral IV access. He is voiding in the urinal. HEENT: His facial skin is a bit flushed. Oral cavity, numerous missing teeth, periodontitis and gum disease. NECK: Supple. No jugular vein distention. LUNGS: Symmetric. Clear breath sounds. HEART: S1 and S2. Regular rate. No S3 or S4. ABDOMEN: Soft, not distended. There is a midline superficial wound from the previous laparotomy, appears healthy without inflammatory changes. GENITAL: Normal. EXTREMITIES: Pulses are 1+ in popliteals. Cap refill is normal. NEUROLOGIC: Nonfocal including cognitive function. LABORATORY DATA: White cell count 9.4, hemoglobin 11, platelets 187, and 80% neutrophils. Sodium 129 and 134, creatinine was started at 4.61 markedly above his baseline of 0.8 and now is down to 2.88. Liver profile normal. Albumin 3.8. Urinalysis was not done. Microbiology, we do not have any micro samples just yet reported. Chest x-ray without any infiltrates. There is a foot x-ray from yesterday with no evidence of osteolysis. ASSESSMENT: 1. Obesity. 2. Coronary artery disease. 3. Ischemic cardiomyopathy. 4. Automatic implantable cardioverter-defibrillator in place. 5. Venous insufficiency with stasis ulcers. 6. Cellulitis in the left lower extremity. DISCUSSION: I still need to review the photos that were taken by Wound Care and we will see if they can be uploaded. Other than that, beta-hemolytic streptococci is the most common etiologic agent for such scenario and gram-negative conrad and sometimes Staphylococcus aureus can be involved, but not very likely. I think we will eventually be able to just leave him on cefazolin and eventual transition to Keflex for discharge planning. I think he would be a good candidate for suppressive Pen VK and compressive dressings until there is complete healing of the ulcers and then transition to compressive stockings to be used indefinitely. Job ID: [id number]
--- NOTE | 2020-08-13 15:51 | PRG ---
DATE OF SERVICE: 08/13/2020 SUBJECTIVE: Patient was seen and examined at bedside and overnight events noted. Patient denies any shortness of breath or chest pain or palpitation. No history of nausea or vomiting or diarrhea or fever or chills or cramps. OBJECTIVE: GENERAL: This is an obese male, in no apparent distress. VITAL SIGNS: Temperature 97.7. Heart rate 91. Respiratory rate 18. Blood pressure 102/66. HEENT: Atraumatic, normocephalic. Oral mucosa is moist. NECK: Supple. CARDIOVASCULAR: S1 and S2 heard. Rate and rhythm regular. RESPIRATORY: Clear to auscultation. GASTROINTESTINAL: Abdomen is soft. MUSCULOSKELETAL: No tenderness. No edema. DERMATOLOGIC: No skin rash. NEUROLOGIC: Alert and awake and oriented x3. No focal neurologic deficits. Moving all the extremities. PSYCHIATRIC: Mood and affect normal. LABORATORY DATA: Potassium 4.2, BUN is 117, and creatinine is 2.8. ASSESSMENT AND PLAN: 1. Acute kidney injury on chronic kidney disease, stage 3, much better with volume repletion and continue to monitor. 2. Hyponatremia, better. 3. Hyperkalemia, better. 4. Acidosis, better. 5. Hypoalbuminemia. 6. Lymphedema. 7. Chronic edema. 8. Anemia of chronic disease. 9. Obesity. Labs are much better. It seems like volume depletion. Renal function getting better with IV fluids. Continue supportive care and avoid nephrotoxins. We will follow. Job ID: [id number]
[2020-08-13] MEDS: Loperamide HCl 2 MG CAP PO PRN ×2 (17:00→20:02)
[2020-08-13] MEDS: Amiodarone 200 MG TAB PO SCH (20:05)
[2020-08-13 20:39] LABS: Vancomycin, Random 11.6 ug/mL (See Comment)
[2020-08-13] MEDS: Vancomycin 1 GM in Premix Bag 1 BAG IVPB SCH ×4 (21:29→21:34)
--- NOTE | 2020-08-13 23:08 | PDOC.HOSPP ---
- Subjective Encounter Date: 08/13/20 Encounter Time: 11:30 Subjective: Patient seen and examined for CAREY with lower extremity infection. Symptomatically feels better. Denies any chest pain, palpitations or fever. - Objective Vital Signs & Weight: Vital Signs (12 hours) Temp Pulse Resp BP Pulse Ox 08/13/20 20:00 98.1 F 80 18 100/64 96 08/13/20 16:26 98.4 F 82 16 111/60 95 08/13/20 11:18 97.7 F 91 18 102/66 95 Weight Admit Weight 310 lb Weight 310 lb I&O: 08/12/20 08/13/20 08/14/20 06:59 06:59 06:59 Intake Total 840 Output Total 1300 Balance -1300 840 Result Diagrams: 08/14/20 04:54 08/14/20 04:54 Additional Labs: Accuchecks 08/13/20 08/13/20 08/13/20 20:24 16:25 05:00 POC Glucose 156 H 184 H 128 H Abnormal Lab Results - Last 48 hrs 08/12/20 11:37: Sodium 129 L, Potassium 5.2 H, Chloride 96 L, Carbon Dioxide 17 L, Anion Gap 21 H, BUN 135 H, Creatinine 4.61 H, Globulin 4.0 H, Albumin/Globulin Ratio 1.0 L 08/12/20 11:37: RBC 4.36 L, Hgb 12.9 L, Hct 37.5 L, MPV 7.1 L, Neutrophils % 80.5 H, Lymphocytes % 10.1 L, Neutrophils # 7.2 H, Lymphocytes # 0.9 L, Monocytes # 0.7 H 08/13/20 05:18: Sodium 134 L, Carbon Dioxide 20 L, BUN 117 H, Creatinine 2.88 H 08/13/20 05:18: RBC 3.80 L, Hgb 11.5 L, Hct 32.8 L, MPV 7.2 L 08/14/20 04:54: Carbon Dioxide 20 L, BUN 74 H, Creatinine 1.41 H, ALT Less than 7 L, Albumin 3.0 L, Albumin/Globulin Ratio 1.0 L 08/14/20 04:54: RBC 3.78 L, Hgb 10.9 L, Hct 33.0 L, MPV 6.8 L, Neutrophils % 75.1 H, Lymphocytes % 11.6 L, Monocytes % 10.1 H, Lymphocytes # 0.9 L, Monocytes # 0.8 H Microbiology - Entire Visit 08/12/20 04:50 Leg - Wound Bacterial Culture - Preliminary Gram Negative Jose Luis Presumptive Enterococcus sp. Radiology Reviewed by me: Yes (Lower extremity x-rayno osteomyelitis) Hospitalist ROS - Review of Systems Cardiovascular: denies: chest pain, palpitations, orthopnea, paroxysmal noc. dyspnea, edema, light headedness, other Gastrointestinal: denies: nausea, vomiting, abdominal pain, diarrhea, constipation, melena, hematochezia, other - Medication Medications: Active Medications Generic Name Dose Route Start Last Admin Trade Name Freq PRN Reason Stop Dose Admin Acetaminophen 650 mg 08/13/20 11:29 08/13/20 20:04 Acetaminophen 325 Mg Tab PO 650 mg Q4H PRN Administration Headache/Fever/Mild Pain (1-3) Amiodarone HCl 100 mg 08/12/20 21:00 08/13/20 20:05 Amiodarone 200 Mg Tab PO 100 mg HS KARIE Administration Apixaban 5 mg 08/12/20 21:00 08/13/20 20:04 Apixaban 5 Mg Tab PO 5 mg BID KARIE Administration Ascorbic Acid 500 mg 08/13/20 09:00 08/13/20 08:10 Ascorbic Acid 500 Mg Chewable Tablet PO 500 mg DAILY KARIE Administration Aspirin 81 mg 08/13/20 09:00 08/13/20 08:09 Aspirin 81 Mg Enteric Coated Tablet PO 81 mg DAILY KARIE Administration Cholestyramine Resin 4 gm 08/13/20 10:00 08/13/20 20:04 Cholestyramine/Aspartame 4 Gm Packet PO 4 gm 1000,2200 KARIE Administration Sodium Chloride 1,000 mls @ 75 mls/hr 08/12/20 15:30 08/13/20 08:16 Normal Saline 0.9% IV 1,000 mls .[id number] KARIE Administration Cefazolin Sodium/Dextrose 1 gm 50 mls @ 100 mls/hr 08/12/20 20:00 08/13/20 20:00 / Device IVPB 50 mls 0800,2000 KARIE Administration Vancomycin HCl 1 gm/ Device 200 mls @ 200 mls/hr 08/13/20 21:00 08/13/20 21:33 IVPB 200 mls .PENDING LEVEL KARIE Administration Vancomycin HCl 1 gm/ Device 200 mls @ 200 mls/hr 08/13/20 21:15 08/13/20 21:34 IVPB 08/13/20 23:59 Not Given NOW KARIE Loperamide HCl 2 mg 08/13/20 11:29 08/13/20 20:02 Loperamide Hcl 2 Mg Cap PO 2 mg PRN PRN Administration Diarrhea/Loose Stools Sodium Chloride 10 ml 08/12/20 21:00 08/13/20 20:04 Flush - Normal Saline 10 Ml Syringe IVF Not Given Q12HR KARIE Tramadol HCl 25 mg 08/12/20 15:28 08/13/20 20:03 Tramadol Hcl 50 Mg Tab PO 25 mg Q4H PRN Administration Severe Pain (7-10) Hospitalist Exam Vitals: Vital Signs (12 hours) Temp Pulse Resp BP Pulse Ox 08/13/20 20:00 98.1 F 80 18 100/64 96 08/13/20 16:26 98.4 F 82 16 111/60 95 08/13/20 11:18 97.7 F 91 18 102/66 95 Weight Admit Weight 310 lb Weight 310 lb General Appearance: awake alert Eye: PERRL Neck: supple, no JVD, no thyromegaly Heart: RRR, no gallops, no rubs, normal peripheral pulses Respiratory: no wheezes, no rales, no ronchi, normal chest expansion Gastrointestinal: soft, normal bowel sounds, no guarding, no rigidity Gastrointestinal - other findings: Abdominal dressing noted Extremities: no cyanosis, no clubbing Extremities - other findings: Bilateral lower extremity dressing present Neurological: no new deficit Musculoskeletal: generalized weakness Psychiatric: normal affect, A&O x 3 Hosp A/P (1) Acute kidney injury Code(s): N17.9 - ACUTE KIDNEY FAILURE, UNSPECIFIED Status: Acute (2) Venous stasis ulcers of both lower extremities Code(s): I83.019 - VARICOSE VEINS OF RIGHT LOWER EXTREMITY W ULCER OF UNSP SITE; I83.029 - VARICOSE VEINS OF LEFT LOWER EXTREMITY W ULCER OF UNSP SITE; L97.919 - NON-PRS CHRONIC ULC UNSP PRT OF R LOW LEG W UNSP SEVERITY; L97.929 - NON-PRS CHRONIC ULC UNSP PRT OF L LOW LEG W UNSP SEVERITY Status: Acute (3) Cellulitis Code(s): L03.90 - CELLULITIS, UNSPECIFIED Status: Acute - Plan 69-year-old male with coronary artery disease, chronic atrial fibrillation on anticoagulation, CKD, chronic lymphedema with recent abdominal surgery presented to the hospital on 08/12 with abnormal labs by home health care. His creatinine on admission was 4.61 compared to 0.96 2 weeks ago. He was admitted to the [facility] with a diagnosis of CAREY with bilateral lower extremity cellulitis with ulceration from venous stasis. He was started on IV fluids along with Ancef. Acute kidney injurymultifactorial Creatinine on admission was 4.61 with BUN of 135, sodium 129 with potassium of 5.2. Plan: Continue IV hydration. Monitor renal function on the daily basis. Will avoid nephrotoxic agent. Renal ultrasound was negative for obstructive uropathy Bilateral lower extremity venous stasis with ulceration/cellulitis Plan: Will continue wound care along with Ancef. Will consult infectious disease for assistance with treatment Electrolyte abnormalities including hyponatremia/hyperkalemia Improving Diabetes mellitus type 2 We will continue current diet. Continue sliding scale. Chronic lymphedema Anemia probably due to chronic disease Obesity with a BMI 38.7 new Coronary artery disease/ischemic cardiomyopathy s/p AICD Chronic diarrhea due to bowel resection Restart Imodium. Continue cholestyramine Other chronic issueshypertension, hyperlipidemia, GERD, obstructive sleep apnea, recent abdominal surgery
[2020-08-13 23:21] LABS: SARS-CoV-2 PCR by NAA Not Detected (NotDetected)
[2020-08-14] MEDS: Sodium Chloride 0.9% 1,000 ML IV SCH ×2 (05:03→11:53)
[2020-08-14 05:35] LABS: #Eosinphils 0.2 thou/uL (0.0-0.7); #Lymphocytes 0.9 thou/uL (1.20-3.40); #Monocytes 0.8 thou/uL (0.11-0.59); #Neutrophils 5.6 thou/uL (1.40-6.50); %Basophils 0.4 % (0.0-1.0); %Eosinophils 2.7 % (0.0-10.0); %Lymphocytes 11.6 % (21.0-51.0); %Monocytes 10.1 % (0.0-10.0); %Neutrophils 75.1 % (42.0-75.0); Hemoglobin 10.9 g/dL (14.0-18.0); Mean Corpuscular HGB CONC 33.2 g/dL (32.0-36.0); Mean Corpuscular Hemoglobin 28.9 pg (27.0-31.0); Mean Corpuscular Volume 87.2 fL (78.0-98.0); Mean Platelet Volume 6.8 fL (7.4-10.4); Platelet Count 178 thou/uL (130-400); RBC Distribution Width 13.4 % (11.5-14.5); Red Blood Cell (RBC) Count 3.78 mill/uL (4.70-6.10); White Blood Cell (WBC) Count 7.4 thou/uL (4.8-10.8)
[2020-08-14 06:02] LABS: ALT (SGPT) Less than 7 U/L (8-55); AST (SGOT) 10 U/L (5-34); Alkaline Phosphatase 84 U/L (40-110); Anion Gap 15 mmol/L (10-20); BUN (Urea Nitrogen) 74 mg/dL (8.4-25.7); Bilirubin, Total 0.4 mg/dL (0.2-1.2); Calc. Creatinine Clearance 100 mL/min (70-130); Calcium 8.5 mg/dL (7.8-10.44); Carbon Dioxide 20 mmol/L (23-31); Chloride 107 mmol/L (98-107); Globulin 3.1 g/dL (2.4-3.5); Glucose 162 mg/dL (80-115); Potassium 3.6 mmol/L (3.5-5.1); Protein, Total 6.1 g/dL (5.8-8.1); Sodium 138 mmol/L (136-145)
[2020-08-14] MEDS: Apixaban 5 MG TAB PO SCH ×2 (07:53→21:10)
[2020-08-14] MEDS: Aspirin 81 mg Enteric Coated Tablet PO SCH (07:53)
[2020-08-14] MEDS: ceFAZolin 1 GM/D5W 1 GM in Premix Bag 1 BAG IVPB SCH ×2 (07:53→22:35)
[2020-08-14] MEDS: Ascorbic Acid 500 mg Chewable Tablet PO SCH (07:53)
[2020-08-14] MEDS: Cholestyramine/Aspartame 4 gm Packet PO SCH ×2 (07:55→22:34)
[2020-08-14] MEDS: Loperamide HCl 2 MG CAP PO PRN ×2 (07:55→14:14)
[2020-08-14] MEDS ORDERED: Dextrose 50% Abboject 50 ML SYRINGE SLOW IVP PRN (09:01)
[2020-08-14] MEDS ORDERED: Insulin Regular 300 UNITS/3 ML VIAL SC PRN ×2 (09:01)
[2020-08-14] MEDS ORDERED: Dextrose 5% in Water 1,000 ML IV PRN (09:01)
[2020-08-14] MEDS: traMADol HCl 50 MG TAB PO PRN ×2 (09:46→21:09)
--- NOTE | 2020-08-14 11:56 | PRG ---
DATE OF SERVICE: 08/14/2020 SUBJECTIVE: Patient was seen and examined at bedside and overnight events noted. Patient denies any shortness of breath or chest pain or palpitation. No history of nausea or vomiting or diarrhea or fever or chills or cramps. OBJECTIVE: General: This is an obese male in no apparent distress. Vital Signs: Temperature 97.7. Heart Rate 70. Respiratory rate 18. Blood pressure 113/65. HEENT: Atraumatic, normocephalic. Oral mucosa is moist. Neck: Supple. Cardiovascular: S1, S2 heard. Rate and rhythm regular. Respiratory: Clear to auscultation. Gastrointestinal: Abdomen is soft. Musculoskeletal: No tenderness. No edema. Dermatologic: No skin rash. Neurologic: Alert and awake and oriented x3. No focal neurologic deficits. Moving all the extremities. Psychiatric: Mood and affect normal. LABORATORY DATA: Potassium 3.6, BUN is 74, creatinine is 1.4. ASSESSMENT AND PLAN: 1. Acute kidney injury, much better. 2. Chronic kidney disease, stage 3. 3. Hyponatremia. 4. Hyperkalemia. 5. Acidosis. 6. Hypoalbuminemia. 7. Lymphedema. 8. Chronic edema. 9. Anemia of chronic disease. Labs are much better. Avoid nephrotoxins. We will follow. We will reduce IV fluids to 50 mL/h. Job ID: [id number]
[2020-08-14] MEDS ORDERED: Cholestyramine/Aspartame 4 gm Packet PO SCH (18:00)
--- NOTE | 2020-08-14 18:26 | PRG ---
DATE OF SERVICE: 08/14/2020 SUBJECTIVE: Having pain in the left side, mostly around an ulcer that he has in the posterior aspect of the ankle and calf region, but not as much as before, but is still hard for him to walk. No shortness of breath, cough, or sputum production. His vital signs are normal, saturating 97% on room air. Lungs, clear. S1 and S2, regular rate. Abdomen, soft, was able to look at the photos that were kindly sent to me and on the right side, there is a round-shaped shallow ulceration with erythema and then right at the ankle and lower and of the right leg, there is a sort of more extensive area of bandlike erythema with hyperkeratosis. There is lymphedema noticeable in those areas and in the left side, there is this area of circumferential ulceration with erythema. There is erythema in the surrounding skin as well, but not as intense as the ulcer itself. The ulcer has red tissue at the base and some hyperkeratosis. LABORATORY DATA: White cell count is at 7.4, hemoglobin 10.9, and platelets 178. Creatinine is down to 1.41, which is much improved from admission when it was 4.61. Microbiology, we have a gram-negative conrad and presumptive Enterococcus from leg wound, not sure what the meaning of that is and may not represent the pathogen here, but makes it less likely that this is related to Staphylococcus aureus. ASSESSMENT AND DISCUSSION: Obesity, coronary artery disease, ischemic cardiomyopathy, automatic implantable cardioverter-defibrillator in place, venous insufficiency, stasis ulcers with cellulitis, right and left lower extremity more prominent on the right side. So, another few days maybe by Sunday, should be able to go home on oral Keflex for discharge planning, continuing with compressive dressings and eventual transition to suppressive penicillin VK 250 b.i.d. for protracted period of time. Job ID: [id number]
--- NOTE | 2020-08-14 19:21 | PDOC.HOSPP ---
- Subjective Encounter Date: 08/14/20 Encounter Time: 11:30 Subjective: Patient seen and examined for renal failure along with bilateral lower extremity infection. Feels better. Denies any new complaints - Objective Vital Signs & Weight: Vital Signs (12 hours) Temp Pulse Resp BP Pulse Ox 08/14/20 13:14 98.1 F 84 20 110/66 97 08/14/20 10:15 97 08/14/20 07:45 97.7 F 70 18 113/65 97 Weight Admit Weight 310 lb Weight 310 lb I&O: 08/13/20 08/14/20 08/15/20 06:59 06:59 06:59 Intake Total 1640 2100 Output Total 1300 1400 Balance -[id number] Result Diagrams: 08/14/20 04:54 08/14/20 04:54 Additional Labs: Accuchecks 08/14/20 08/14/20 08/13/20 15:54 03:50 20:24 POC Glucose 176 H 164 H 156 H Hospitalist ROS - Review of Systems Respiratory: denies: cough, dry, shortness of breath, hemoptysis, SOB with excertion, pleuritic pain, sputum, wheezing, other Cardiovascular: denies: chest pain, palpitations, orthopnea, paroxysmal noc. dyspnea, edema, light headedness, other - Medication Medications: Active Medications Generic Name Dose Route Start Last Admin Trade Name Freq PRN Reason Stop Dose Admin Acetaminophen 650 mg 08/13/20 11:29 08/13/20 20:04 Acetaminophen 325 Mg Tab PO 650 mg Q4H PRN Administration Headache/Fever/Mild Pain (1-3) Amiodarone HCl 100 mg 08/12/20 21:00 08/13/20 20:05 Amiodarone 200 Mg Tab PO 100 mg HS KARIE Administration Apixaban 5 mg 08/12/20 21:00 08/14/20 07:53 Apixaban 5 Mg Tab PO 5 mg BID KARIE Administration Ascorbic Acid 500 mg 08/13/20 09:00 08/14/20 07:53 Ascorbic Acid 500 Mg Chewable Tablet PO 500 mg DAILY KARIE Administration Aspirin 81 mg 08/13/20 09:00 08/14/20 07:53 Aspirin 81 Mg Enteric Coated Tablet PO 81 mg DAILY KARIE Administration Cholestyramine Resin 4 gm 08/14/20 18:00 08/14/20 18:10 Cholestyramine/Aspartame 4 Gm Packet PO 08/14/20 20:00 4 gm NOW KARIE Administration Sodium Chloride 1,000 mls @ 50 mls/hr 08/14/20 11:38 08/14/20 11:53 Normal Saline 0.9% IV 1,000 mls .Q20H KARIE Administration Loperamide HCl 2 mg 08/13/20 11:29 08/14/20 14:14 Loperamide Hcl 2 Mg Cap PO 2 mg PRN PRN Administration Diarrhea/Loose Stools Sodium Chloride 10 ml 08/12/20 21:00 08/14/20 07:54 Flush - Normal Saline 10 Ml Syringe IVF Not Given Q12HR KARIE Tramadol HCl 25 mg 08/12/20 15:28 08/14/20 09:46 Tramadol Hcl 50 Mg Tab PO 25 mg Q4H PRN Administration Severe Pain (7-10) Hospitalist Exam Vitals: Vital Signs (12 hours) Temp Pulse Resp BP Pulse Ox 08/14/20 13:14 98.1 F 84 20 110/66 97 08/14/20 10:15 97 08/14/20 07:45 97.7 F 70 18 113/65 97 Weight Admit Weight 310 lb Weight 310 lb General Appearance: awake alert Neck: supple, no JVD Heart: RRR, no gallops Respiratory: no wheezes, no ronchi Gastrointestinal: soft, non-distended Neurological: no new deficit Psychiatric: A&O x 3 Hosp A/P (1) Acute kidney injury Code(s): N17.9 - ACUTE KIDNEY FAILURE, UNSPECIFIED Status: Acute (2) Venous stasis ulcers of both lower extremities Code(s): I83.019 - VARICOSE VEINS OF RIGHT LOWER EXTREMITY W ULCER OF UNSP SITE; I83.029 - VARICOSE VEINS OF LEFT LOWER EXTREMITY W ULCER OF UNSP SITE; L97.919 - NON-PRS CHRONIC ULC UNSP PRT OF R LOW LEG W UNSP SEVERITY; L97.929 - NON-PRS CHRONIC ULC UNSP PRT OF L LOW LEG W UNSP SEVERITY Status: Acute (3) Cellulitis Code(s): L03.90 - CELLULITIS, UNSPECIFIED Status: Acute - Plan DVT proph w/lovenox 69-year-old male with coronary artery disease, chronic atrial fibrillation on anticoagulation, CKD, chronic lymphedema with recent abdominal surgery presented to the hospital on 08/12 with abnormal labs by home health care. His creatinine on admission was 4.61 compared to 0.96 2 weeks ago. He was admitted to the hospital with a diagnosis of CAREY with bilateral lower extremity cellulitis with ulceration from venous stasis. He was started on IV fluids along with Ancef. Acute kidney injurymultifactorial Creatinine on admission was 4.61 with BUN of 135, sodium 129 with potassium of 5.2. Plan: Renal function improving. We will continue IV fluids. Will avoid nephrotoxic agent. Renal ultrasound was negative for obstructive uropathy. A.m. labs Bilateral lower extremity venous stasis with ulceration/cellulitis Plan: Will continue wound care along with Ancef. Infectious disease input a ppreciated. Will transition to Keflex next week per ID. Electrolyte abnormalities including hyponatremia/hyperkalemia Improving Diabetes mellitus type 2 We will continue current diet. Continue sliding scale. 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 Continue cholestyramine Other chronic issueshypertension, hyperlipidemia, GERD, obstructive sleep apnea, recent abdominal surgery
[2020-08-14 20:23] LABS: Vancomycin, Random 9.9 ug/mL (See Comment)
[2020-08-14] MEDS: Amiodarone 200 MG TAB PO SCH (21:10)
[2020-08-15] MEDS: ceFAZolin 1 GM/D5W 1 GM in Premix Bag 1 BAG IVPB SCH ×3 (05:31→22:54)
[2020-08-15 06:49] LABS: #Eosinphils 0.2 thou/uL (0.0-0.7); #Lymphocytes 0.9 thou/uL (1.20-3.40); #Monocytes 0.8 thou/uL (0.11-0.59); #Neutrophils 5.6 thou/uL (1.40-6.50); %Basophils 0.4 % (0.0-1.0); %Eosinophils 3.2 % (0.0-10.0); %Lymphocytes 11.9 % (21.0-51.0); %Monocytes 10.2 % (0.0-10.0); %Neutrophils 74.2 % (42.0-75.0); Hemoglobin 10.5 g/dL (14.0-18.0); Mean Corpuscular HGB CONC 32.4 g/dL (32.0-36.0); Mean Corpuscular Hemoglobin 28.7 pg (27.0-31.0); Mean Corpuscular Volume 88.6 fL (78.0-98.0); Mean Platelet Volume 6.7 fL (7.4-10.4); Platelet Count 178 thou/uL (130-400); RBC Distribution Width 13.7 % (11.5-14.5); Red Blood Cell (RBC) Count 3.66 mill/uL (4.70-6.10); White Blood Cell (WBC) Count 7.5 thou/uL (4.8-10.8)
[2020-08-15 07:15] LABS: Anion Gap 11 mmol/L (10-20); BUN (Urea Nitrogen) 33 mg/dL (8.4-25.7); Calc. Creatinine Clearance 143 mL/min (70-130); Calcium 8.4 mg/dL (7.8-10.44); Carbon Dioxide 22 mmol/L (23-31); Chloride 108 mmol/L (98-107); Glucose 162 mg/dL (80-115); Sodium 137 mmol/L (136-145)
[2020-08-15] MEDS: Aspirin 81 mg Enteric Coated Tablet PO SCH (07:41)
[2020-08-15] MEDS: Sodium Chloride 0.9% 1,000 ML IV SCH (07:41)
[2020-08-15] MEDS: Apixaban 5 MG TAB PO SCH ×2 (07:41→20:01)
[2020-08-15] MEDS: Ascorbic Acid 500 mg Chewable Tablet PO SCH (07:41)
[2020-08-15] MEDS: Cholestyramine/Aspartame 4 gm Packet PO SCH ×3 (07:42→22:54)
[2020-08-15] MEDS: Loperamide HCl 2 MG CAP PO PRN (07:47)
--- NOTE | 2020-08-15 12:48 | PRG ---
DATE OF SERVICE: 08/15/2020 SUBJECTIVE: Patient was seen and examined at bedside and overnight events noted. Patient denies any shortness of breath or chest pain or palpitation. No history of nausea or vomiting or diarrhea or fever or chills or cramps. OBJECTIVE: GENERAL: This is a well-built male, in no apparent distress. VITAL SIGNS: Temperature 98. Heart rate 73. Respiratory rate 18. Blood pressure 106/56. HEENT: Atraumatic, normocephalic. Oral mucosa is moist NECK: Supple. CARDIOVASCULAR: S1, S2 heard. Rate and rhythm regular. RESPIRATORY: Clear to auscultation. GASTROINTESTINAL: Abdomen is soft. MUSCULOSKELETAL: No tenderness. No edema. DERMATOLOGIC: No skin rash. NEUROLOGIC: Alert and awake and oriented X3. No focal neurologic deficits. Moving all the extremities. PSYCHIATRIC: Mood and affect normal. LABORATORY DATA: Potassium 4.0, BUN is 33, creatinine is 0.9. ASSESSMENT AND PLAN: 1. Acute kidney injury on chronic kidney disease stage 3, much better, mostly likely from volume depletion. 2. Hyponatremia. 3. Hyperkalemia. 4. Morbid Obesity 5. Lymphedema. Recommend cautious use of diuretics when restarted and follow labs closely. I will sign off. Please call back with any questions. Monitor electrolytes. Job ID: [id number] MTDD
[2020-08-15] MEDS: traMADol HCl 50 MG TAB PO PRN (14:01)
[2020-08-15] MEDS: Amiodarone 200 MG TAB PO SCH (20:01)
--- NOTE | 2020-08-15 23:32 | PDOC.HOSPP ---
- Subjective Encounter Date: 08/15/20 Encounter Time: 10:45 Subjective: Patient seen and examined for acute renal failure which is improving. Denies any new complaints. No fever or chills reported. Diarrhea controlled with cholestyramine and Imodium. Denies any fever or chills - Objective Vital Signs & Weight: Vital Signs (12 hours) Temp Pulse Resp BP Pulse Ox 08/15/20 20:00 98.0 F 76 18 103/65 96 Weight Admit Weight 310 lb Weight 310 lb I&O: 08/14/20 08/15/20 08/16/20 06:59 06:59 06:59 Intake Total 1640 2100 2200 Output Total 1400 600 Balance 240 2100 1600 Result Diagrams: 08/15/20 06:34 08/15/20 06:34 Additional Labs: Accuchecks 08/15/20 08/15/20 08/15/20 20:04 16:20 11:28 POC Glucose 155 H 131 H 169 H 08/15/20 04:36 POC Glucose 119 H Abnormal Lab Results - Last 48 hrs 08/14/20 04:54: Carbon Dioxide 20 L, BUN 74 H, Creatinine 1.41 H, ALT Less than 7 L, Albumin 3.0 L, Albumin/Globulin Ratio 1.0 L 08/14/20 04:54: RBC 3.78 L, Hgb 10.9 L, Hct 33.0 L, MPV 6.8 L, Neutrophils % 75.1 H, Lymphocytes % 11.6 L, Monocytes % 10.1 H, Lymphocytes # 0.9 L, Monocytes # 0.8 H 08/15/20 06:34: Chloride 108 H, Carbon Dioxide 22 L, BUN 33 H 08/15/20 06:34: RBC 3.66 L, Hgb 10.5 L, Hct 32.4 L, MPV 6.7 L, Lymphocytes % 11.9 L, Monocytes % 10.2 H, Lymphocytes # 0.9 L, Monocytes # 0.8 H Microbiology - Entire Visit 08/12/20 04:50 Leg - Wound Bacterial Culture - Preliminary Pseudomonas aeruginosa Enterococcus faecalis Hospitalist ROS - Review of Systems Cardiovascular: denies: chest pain, palpitations, orthopnea, paroxysmal noc. dyspnea, edema, light headedness, other Gastrointestinal: denies: nausea, vomiting, abdominal pain, diarrhea, constipation, melena, hematochezia, other - Medication Medications: Active Medications Generic Name Dose Route Start Last Admin Trade Name Freq PRN Reason Stop Dose Admin Acetaminophen 650 mg 08/13/20 11:29 08/13/20 20:04 Acetaminophen 325 Mg Tab PO 650 mg Q4H PRN Administration Headache/Fever/Mild Pain (1-3) Amiodarone HCl 100 mg 08/12/20 21:00 08/15/20 20:01 Amiodarone 200 Mg Tab PO 100 mg HS KARIE Administration Apixaban 5 mg 08/12/20 21:00 08/15/20 20:01 Apixaban 5 Mg Tab PO 5 mg BID KARIE Administration Ascorbic Acid 500 mg 08/13/20 09:00 08/15/20 07:41 Ascorbic Acid 500 Mg Chewable Tablet PO 500 mg DAILY KARIE Administration Aspirin 81 mg 08/13/20 09:00 08/15/20 07:41 Aspirin 81 Mg Enteric Coated Tablet PO 81 mg DAILY KARIE Administration Cholestyramine Resin 4 gm 08/14/20 22:00 08/15/20 22:54 Cholestyramine/Aspartame 4 Gm Packet PO Not Given 1000,1600,2200 KARIE Sodium Chloride 1,000 mls @ 50 mls/hr 08/14/20 11:38 08/15/20 07:41 Normal Saline 0.9% IV 1,000 mls .Q20H KARIE Administration Cefazolin Sodium/Dextrose 1 gm 50 mls @ 100 mls/hr 08/14/20 22:00 08/15/20 22:54 / Device IVPB 50 mls Q8HR KARIE Administration Loperamide HCl 2 mg 08/13/20 11:29 08/15/20 07:47 Loperamide Hcl 2 Mg Cap PO 2 mg PRN PRN Administration Diarrhea/Loose Stools Sodium Chloride 10 ml 08/12/20 21:00 08/15/20 20:02 Flush - Normal Saline 10 Ml Syringe IVF Not Given Q12HR KARIE Tramadol HCl 25 mg 08/12/20 15:28 08/15/20 14:01 Tramadol Hcl 50 Mg Tab PO 25 mg Q4H PRN Administration Severe Pain (7-10) Hospitalist Exam Vitals: Vital Signs (12 hours) Temp Pulse Resp BP Pulse Ox 08/15/20 20:00 98.0 F 76 18 103/65 96 Weight Admit Weight 310 lb Weight 310 lb General Appearance: awake alert Neck: supple, no JVD Heart: RRR, no gallops Respiratory: no rales, no ronchi Gastrointestinal: soft, no guarding, no rigidity Extremities: no cyanosis, no clubbing Skin - other findings: Bilateral lower extremity dressing noted Musculoskeletal: generalized weakness Psychiatric: A&O x 3 Hosp A/P (1) Acute kidney injury Code(s): N17.9 - ACUTE KIDNEY FAILURE, UNSPECIFIED Status: Acute (2) Venous stasis ulcers of both lower extremities Code(s): I83.019 - VARICOSE VEINS OF RIGHT LOWER EXTREMITY W ULCER OF UNSP SITE; I83.029 - VARICOSE VEINS OF LEFT LOWER EXTREMITY W ULCER OF UNSP SITE; L97.919 - NON-PRS CHRONIC ULC UNSP PRT OF R LOW LEG W UNSP SEVERITY; L97.929 - NON-PRS CHRONIC ULC UNSP PRT OF L LOW LEG W UNSP SEVERITY Status: Acute (3) Cellulitis Code(s): L03.90 - CELLULITIS, UNSPECIFIED Status: Acute - Plan 69-year-old male with coronary artery disease, chronic atrial fibrillation on anticoagulation, CKD, chronic lymphedema with recent abdominal surgery presented to the hospital on 08/12 with abnormal labs by home health care. His creatinine on admission was 4.61 compared to 0.96 2 weeks ago. He was admitted to the hospital with a diagnosis of CAREY with bilateral lower extremity cellulitis with ulceration from venous stasis. He was started on IV fluids along with Ancef. Acute kidney injurymultifactorialimproving Creatinine on admission was 4.61 with BUN of 135, sodium 129 with potassium of 5.2. Plan: Renal function improving. Will discontinue IV fluids since patient is tolerating oral well and diarrhea has controlled. Will avoid nephrotoxic agent. Renal ultrasound was negative for obstructive uropathy. A.m. labs Bilateral lower extremity venous stasis with ulceration/cellulitis Plan: Will continue wound care along with Ancef. Infectious disease input appreciated. Will transition to Keflex at discharge per ID. Electrolyte abnormalities including hyponatremia/hyperkalemia Improving Diabetes mellitus type 2 We will continue current diet. Continue sliding scale. 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 Continue cholestyramine
[2020-08-16] MEDS: traMADol HCl 50 MG TAB PO PRN ×2 (00:41→22:36)
[2020-08-16] MEDS: ceFAZolin 1 GM/D5W 1 GM in Premix Bag 1 BAG IVPB SCH ×3 (05:08→22:02)
[2020-08-16] MEDS: Cholestyramine/Aspartame 4 gm Packet PO SCH ×3 (09:32→22:05)
[2020-08-16] MEDS: Apixaban 5 MG TAB PO SCH ×2 (09:32→20:44)
[2020-08-16] MEDS: Ascorbic Acid 500 mg Chewable Tablet PO SCH (09:32)
[2020-08-16] MEDS: Aspirin 81 mg Enteric Coated Tablet PO SCH (09:32)
[2020-08-16 10:43] LABS: #Eosinphils 0.2 thou/uL (0.0-0.7); #Lymphocytes 1.1 thou/uL (1.20-3.40); #Monocytes 0.8 thou/uL (0.11-0.59); #Neutrophils 5.7 thou/uL (1.40-6.50); %Basophils 0.5 % (0.0-1.0); %Eosinophils 2.4 % (0.0-10.0); %Neutrophils 73.1 % (42.0-75.0); Hemoglobin 10.4 g/dL (14.0-18.0); Mean Corpuscular Hemoglobin 30.7 pg (27.0-31.0); Mean Corpuscular Volume 90.4 fL (78.0-98.0); Mean Platelet Volume 6.8 fL (7.4-10.4); Platelet Count 150 thou/uL (130-400); RBC Distribution Width 13.5 % (11.5-14.5); Red Blood Cell (RBC) Count 3.39 mill/uL (4.70-6.10); White Blood Cell (WBC) Count 7.8 thou/uL (4.8-10.8)
[2020-08-16 10:59] LABS: Anion Gap 12 mmol/L (10-20); BUN (Urea Nitrogen) 16 mg/dL (8.4-25.7); Calc. Creatinine Clearance 160 mL/min (70-130); Calcium 8.2 mg/dL (7.8-10.44); Carbon Dioxide 22 mmol/L (23-31); Chloride 109 mmol/L (98-107); Glucose 167 mg/dL (80-115); Potassium 4.5 mmol/L (3.5-5.1); Sodium 138 mmol/L (136-145)
--- NOTE | 2020-08-16 11:05 | PDOC.HOSPP ---
- Subjective Encounter Date: 08/16/20 Encounter Time: 11:04 Subjective: aalert. no specific problems other than bilat leg discomfort - Objective Vital Signs & Weight: Vital Signs (12 hours) Temp Pulse Resp BP Pulse Ox 08/16/20 08:00 98.1 F 75 18 111/67 94 L Weight Admit Weight 310 lb Weight 310 lb I&O: 08/15/20 08/16/20 08/17/20 06:59 06:59 06:59 Intake Total 2100 2200 Output Total 600 Balance 2100 1600 Result Diagrams: 08/16/20 10:07 08/16/20 10:07 Additional Labs: Accuchecks 08/16/20 08/15/20 08/15/20 05:10 20:04 16:20 POC Glucose 111 H 155 H 131 H 08/15/20 08/14/20 08/13/20 11:28 11:22 11:18 POC Glucose 169 H 188 H 150 H Hospitalist ROS - Medication Medications: Active Medications Generic Name Dose Route Start Last Admin Trade Name Bariq PRN Reason Stop Dose Admin Acetaminophen 650 mg 08/13/20 11:29 08/13/20 20:04 Acetaminophen 325 Mg Tab PO 650 mg Q4H PRN Administration Headache/Fever/Mild Pain (1-3) Amiodarone HCl 100 mg 08/12/20 21:00 08/15/20 20:01 Amiodarone 200 Mg Tab PO 100 mg HS KARIE Administration Apixaban 5 mg 08/12/20 21:00 08/16/20 09:32 Apixaban 5 Mg Tab PO 5 mg BID KARIE Administration Ascorbic Acid 500 mg 08/13/20 09:00 08/16/20 09:32 Ascorbic Acid 500 Mg Chewable Tablet PO 500 mg DAILY KARIE Administration Aspirin 81 mg 08/13/20 09:00 08/16/20 09:32 Aspirin 81 Mg Enteric Coated Tablet PO 81 mg DAILY KARIE Administration Cholestyramine Resin 4 gm 08/14/20 22:00 08/16/20 09:32 Cholestyramine/Aspartame 4 Gm Packet PO Not Given 1000,1600,2200 KARIE Cefazolin Sodium/Dextrose 1 gm 50 mls @ 100 mls/hr 08/14/20 22:00 08/16/20 05:08 / Device IVPB 50 mls Q8HR KARIE Administration Loperamide HCl 2 mg 08/13/20 11:29 08/15/20 07:47 Loperamide Hcl 2 Mg Cap PO 2 mg PRN PRN Administration Diarrhea/Loose Stools Sodium Chloride 10 ml 08/12/20 21:00 08/16/20 09:31 Flush - Normal Saline 10 Ml Syringe IVF Not Given Q12HR KARIE Tramadol HCl 25 mg 08/12/20 15:28 08/16/20 00:41 Tramadol Hcl 50 Mg Tab PO 25 mg Q4H PRN Administration Severe Pain (7-10) Hospitalist Exam Vitals: Vital Signs (12 hours) Temp Pulse Resp BP Pulse Ox 08/16/20 08:00 98.1 F 75 18 111/67 94 L Weight Admit Weight 310 lb Weight 310 lb General Appearance: awake alert Neck: no JVD Heart: RRR, no murmur Respiratory: CTAB Gastrointestinal: soft, non-tender, normal bowel sounds Extremities - other findings: JERALD wrap foot to knee bilat Hosp A/P (1) Acute kidney injury Code(s): N17.9 - ACUTE KIDNEY FAILURE, UNSPECIFIED Status: Resolved (2) Venous stasis ulcers of both lower extremities Code(s): I83.019 - VARICOSE VEINS OF RIGHT LOWER EXTREMITY W ULCER OF UNSP SITE; I83.029 - VARICOSE VEINS OF LEFT LOWER EXTREMITY W ULCER OF UNSP SITE; L97.919 - NON-PRS CHRONIC ULC UNSP PRT OF R LOW LEG W UNSP SEVERITY; L97.929 - NON-PRS CHRONIC ULC UNSP PRT OF L LOW LEG W UNSP SEVERITY Status: Acute (3) GERD (gastroesophageal reflux disease) Code(s): K21.9 - GASTRO-ESOPHAGEAL REFLUX DISEASE WITHOUT ESOPHAGITIS Status: Chronic Qualifiers: Esophagitis bleeding: unspecified whether hemorrhage (4) CAD (coronary artery disease) Code(s): I25.10 - ATHSCL HEART DISEASE OF [place] CORONARY ARTERY W/O ANG PCTRS Status: Chronic Qualifiers: Coronary Disease-Associated Artery/Lesion type: bypass graft (5) DMII (diabetes mellitus, type 2) Status: Chronic Qualifiers: Diabetes mellitus termite renewal inspector insulin use: without termite renewal inspector use (6) HLD (hyperlipidemia) Code(s): E78.5 - HYPERLIPIDEMIA, UNSPECIFIED Status: Chronic Qualifiers: Hyperlipidemia type: unspecified Qualified Code(s): E78.5 - Hyperlipidemia, unspecified (7) HTN (hypertension) Code(s): I10 - ESSENTIAL (PRIMARY) HYPERTENSION Status: Chronic Qualifiers: Hypertension type: essential hypertension Qualified Code(s): I10 - Essential (primary) hypertension (8) CANDACE (obstructive sleep apnea) Code(s): G47.33 - OBSTRUCTIVE SLEEP APNEA (ADULT) (PEDIATRIC) Status: Chronic - Plan cont iv antibx cont wound care cont amiodarone, eliquis
[2020-08-16] MEDS: Amiodarone 200 MG TAB PO SCH (20:44)
[2020-08-17] MEDS: ceFAZolin 1 GM/D5W 1 GM in Premix Bag 1 BAG IVPB SCH (05:43)
[2020-08-17 07:31] VITALS: TEMP 98.2
--- NOTE | 2020-08-17 08:45 | PDOC.HOSPP ---
- Subjective Encounter Date: 08/17/20 Encounter Time: 08:40 - Objective Vital Signs & Weight: Vital Signs (12 hours) Temp Pulse Resp BP Pulse Ox 08/17/20 07:26 98.2 F 70 17 136/68 96 08/17/20 04:33 98.0 F 74 18 111/74 96 08/17/20 00:00 98.2 F 78 18 149/68 H 97 Weight Admit Weight 310 lb Weight 310 lb I&O: 08/16/20 08/17/20 08/18/20 06:59 06:59 06:59 Intake Total 2200 1330 Output Total 600 200 Balance 1600 1130 Result Diagrams: 08/16/20 10:07 08/16/20 10:07 Additional Labs: Accuchecks 08/17/20 08/16/20 08/16/20 04:39 20:04 11:25 POC Glucose 116 H 182 H 153 H 08/14/20 11:22 POC Glucose 188 H Hospitalist ROS - Medication Medications: Active Medications Generic Name Dose Route Start Last Admin Trade Name Freq PRN Reason Stop Dose Admin Acetaminophen 650 mg 08/13/20 11:29 08/13/20 20:04 Acetaminophen 325 Mg Tab PO 650 mg Q4H PRN Administration Headache/Fever/Mild Pain (1-3) Amiodarone HCl 100 mg 08/12/20 21:00 08/16/20 20:44 Amiodarone 200 Mg Tab PO 100 mg HS KARIE Administration Apixaban 5 mg 08/12/20 21:00 08/16/20 20:44 Apixaban 5 Mg Tab PO 5 mg BID KARIE Administration Ascorbic Acid 500 mg 08/13/20 09:00 08/16/20 09:32 Ascorbic Acid 500 Mg Chewable Tablet PO 500 mg DAILY KARIE Administration Aspirin 81 mg 08/13/20 09:00 08/16/20 09:32 Aspirin 81 Mg Enteric Coated Tablet PO 81 mg DAILY KARIE Administration Cholestyramine Resin 4 gm 08/14/20 22:00 08/16/20 22:05 Cholestyramine/Aspartame 4 Gm Packet PO Not Given 1000,1600,2200 KARIE Loperamide HCl 2 mg 08/13/20 11:29 08/15/20 07:47 Loperamide Hcl 2 Mg Cap PO 2 mg PRN PRN Administration Diarrhea/Loose Stools Sodium Chloride 10 ml 08/12/20 21:00 02/08/21 22:02 Flush - Normal Saline 10 Ml Syringe IVF 10 ml Q12HR KARIE Administration Tramadol HCl 25 mg 08/12/20 15:28 08/16/20 22:36 Tramadol Hcl 50 Mg Tab PO 25 mg Q4H PRN Administration Severe Pain (7-10) Hospitalist Exam Vitals: Vital Signs (12 hours) Temp Pulse Resp BP Pulse Ox 08/17/20 07:26 98.2 F 70 17 136/68 96 08/17/20 04:33 98.0 F 74 18 111/74 96 08/17/20 00:00 98.2 F 78 18 149/68 H 97 Weight Admit Weight 310 lb Weight 310 lb Hosp A/P (1) Acute kidney injury Code(s): N17.9 - ACUTE KIDNEY FAILURE, UNSPECIFIED Status: Resolved (2) Venous stasis ulcers of both lower extremities Code(s): I83.019 - VARICOSE VEINS OF RIGHT LOWER EXTREMITY W ULCER OF UNSP SITE; I83.029 - VARICOSE VEINS OF LEFT LOWER EXTREMITY W ULCER OF UNSP SITE; L97.919 - NON-PRS CHRONIC ULC UNSP PRT OF R LOW LEG W UNSP SEVERITY; L97.929 - NON-PRS CH RONIC ULC UNSP PRT OF L LOW LEG W UNSP SEVERITY Status: Acute (3) GERD (gastroesophageal reflux disease) Code(s): K21.9 - GASTRO-ESOPHAGEAL REFLUX DISEASE WITHOUT ESOPHAGITIS Status: Chronic Qualifiers: Esophagitis bleeding: unspecified whether hemorrhage (4) CAD (coronary artery disease) Code(s): I25.10 - ATHSCL HEART DISEASE OF [place] CORONARY ARTERY W/O ANG PCTRS Status: Chronic Qualifiers: Coronary Disease-Associated Artery/Lesion type: bypass graft (5) DMII (diabetes mellitus, type 2) Status: Chronic Qualifiers: Diabetes mellitus terminal block assembler insulin use: without terminal block assembler use (6) HLD (hyperlipidemia) Code(s): E78.5 - HYPERLIPIDEMIA, UNSPECIFIED Status: Chronic Qualifiers: Hyperlipidemia type: unspecified Qualified Code(s): E78.5 - Hyperlipidemia, unspecified (7) HTN (hypertension) Code(s): I10 - ESSENTIAL (PRIMARY) HYPERTENSION Status: Chronic Qualifiers: Hypertension type: essential hypertension Qualified Code(s): I10 - Essential (primary) hypertension (8) CANDACE (obstructive sleep apnea) Code(s): G47.33 - OBSTRUCTIVE SLEEP APNEA (ADULT) (PEDIATRIC) Status: Chronic - Plan cont iv antibx cont wound care cont amiodarone, eliquis
[2020-08-17] MEDS: Apixaban 5 MG TAB PO SCH (09:25)
[2020-08-17] MEDS: Aspirin 81 mg Enteric Coated Tablet PO SCH (09:25)
[2020-08-17] MEDS: Cholestyramine/Aspartame 4 gm Packet PO SCH (09:25)
[2020-08-17] MEDS: Ascorbic Acid 500 mg Chewable Tablet PO SCH (09:25)
--- NOTE | 2020-08-17 09:40 | DIS ---
DATE OF ADMISSION: 08/12/2020 DATE OF DISCHARGE: 08/17/2020 PRIMARY CARE PROVIDER: Carmen Duckworth MD DISPOSITION: Discharged to home. DIAGNOSES: Acute renal failure, resolved. Lymphedema with ulceration in bilateral lower extremities. Atrial fibrillation with controlled ventricular response. Chronic anticoagulation. Cardiomyopathy with chronic systolic heart failure. Diabetes mellitus, type 2. Gastroesophageal reflux disease. Hypertension. Dyslipidemia. DISCHARGE MEDICATIONS: New: 1. Cephalexin 500 mg p.o. q.i.d. x3 weeks. 2. Entresto 49/51 half tablet in the morning, whole tablet in the evening. 3. Jardiance 5 mg a day. 4. Eliquis 5 mg twice a day. 5. Aspirin 81 mg a day. 6. Coreg 50 mg at bedtime. 7. Amiodarone 100 mg at bedtime. ALLERGIES: NO KNOWN DRUG ALLERGIES. CODE STATUS: Full. PENDING AT THE TIME OF DISCHARGE: Nothing. DIET: Diabetic. HOSPITAL COURSE: The patient admitted to the hospital through [facility] with abnormal labs, leg wounds, history of lymphedema, had draining wounds on his legs, history of being put on Augmentin. His creatinine was up to 4.65 from normal. Diuretics were held. BNP was trended. Entresto was held. The patient was put on IV antibiotics. LABORATORY DATA: Laboratory on admission: White count 9.0, hemoglobin 12.9, and platelet count 224,000. His creatinine was 4.61 on 08/12, 2.88 on 08/14, 0.98 on 08/15, 0.88 on 08/16. During his hospital stay, he was afebrile. He received wound care for his legs. Initially, IV antibiotics have been transitioned to p.o. antibiotics per Dr. Canchola' suggestion. CONSULTATIONS: Dr. Dillon Canchola, Infectious Disease. Seen by Dr. Lydia Wright, Nephrology. PROCEDURES: None. DISCHARGE FOLLOWUP: He is being discharged to follow up with his PCP, Dr. Carmen Duckworth, in 3 to 7 days. He is being discharged off diuretics. He will need a basic metabolic profile and follow up. Per Dr. Lydia Wright's recommendation, he will need very cautious use of diuretics in the future. His lymphedema cannot be managed with diuretics and the only target for the diuretics will be to manage his congestive heart failure. He currently has a clear chest. Vital signs were unremarkable. He will receive wound care as an outpatient through home health. He will receive [address] Canchola has suggested prophylaxis with Pen VK by his primary care provider. 40 minutes spent preparing this discharge. Job ID: [id number]
[2020-08-17 11:07] VITALS: BP 131/73
[2020-08-17] MEDS: Loperamide HCl 2 MG CAP PO PRN (11:48)
[2020-08-17] MEDS ORDERED: Cephalexin 250 MG CAP PO SCH (12:00)
[2020-08-17] MEDS: traMADol HCl 50 MG TAB PO PRN (13:30)
== END 2020-08-17 14:14 | disposition home or self-care (01) | DRG 683 ==
LOC: ERS 11:01 → T4-B 14:09
PROVIDERS: ADMIT Internal Medicine; ATTEND Internal Medicine
DX: N17.9 Acute kidney failure, unspecified (principal); I13.0 Hypertensive heart and chronic kidney disease with heart failure and stage 1 through stage 4 chronic kidney disease, or unspecified chronic kidney disease; L03.115 Cellulitis of right lower limb; L97.929 Non-pressure chronic ulcer of unspecified part of left lower leg with unspecified severity; E87.1 Hypo-osmolality and hyponatremia; E87.2 Acidosis; I50.22 Chronic systolic (congestive) heart failure; I48.91 Unspecified atrial fibrillation; G47.33 Obstructive sleep apnea (adult) (pediatric); I89.0 Lymphedema, not elsewhere classified; E11.22 Type 2 diabetes mellitus with diabetic chronic kidney disease; K52.9 Noninfective gastroenteritis and colitis, unspecified; I83.019 Varicose veins of right lower extremity with ulcer of unspecified site; I83.029 Varicose veins of left lower extremity with ulcer of unspecified site; Z20.822 Contact with and (suspected) exposure to COVID-19; E66.9 Obesity, unspecified; D63.1 Anemia in chronic kidney disease; K21.9 Gastro-esophageal reflux disease without esophagitis; N18.30 Chronic kidney disease, stage 3 unspecified; E88.09 Other disorders of plasma-protein metabolism, not elsewhere classified; I25.5 Ischemic cardiomyopathy; E87.5 Hyperkalemia; E78.5 Hyperlipidemia, unspecified; I25.10 Atherosclerotic heart disease of native coronary artery without angina pectoris; Z95.1 Presence of aortocoronary bypass graft; Z68.38 Body mass index [BMI] 38.0-38.9, adult; Z95.810 Presence of automatic (implantable) cardiac defibrillator; Z79.01 Long term (current) use of anticoagulants
CPT/HCPCS: 36415; 36416; 71045; 76770; 80048; 80053; 80202; 82570; 83880; 84156; 85025; 85027; 87070; 87077; 87186; 87205; 87635; J0690; J1815; J3370; U0003; U0005

== ENCOUNTER 2020-12-12 10:08 | Emergency (ER) | payer MEDICARE ==
[2020-12-12] MEDS ORDERED: Sodium Chloride 0.9% 100 ML ONE (11:15)
[2020-12-12] MEDS ORDERED: Vancomycin 1 GM/200 ML BAG ONE (11:15)
[2020-12-12] MEDS ORDERED: Cefepime 2 GM VIAL ONE (11:15)
[2020-12-12 11:29] LABS: Band 55 % (5-11); Hemoglobin 14.7 g/dL (14.0-18.0); Lymphocytes 9 % (21-51); MDiff Complete? YES; Mean Corpuscular HGB CONC 32.5 g/dL (32.0-36.0); Mean Corpuscular Hemoglobin 29.2 pg (27.0-31.0); Mean Platelet Volume 8.6 fL (7.4-10.4); Metamyelocyte 3 % (0-0); Monocytes 2 % (0-10); Neutrophil 31 % (42-75); Platelet Count 85 thou/uL (130-400); Platelet Morphology Comment Appears Decreased; RBC Distribution Width 12.3 % (11.5-14.5); Red Blood Cell (RBC) Count 5.02 mill/uL (4.70-6.10); Reflex for Review?? YES; Vacuoles SLIGHT; White Blood Cell (WBC) Count 4.9 thou/uL (4.8-10.8)
[2020-12-12 11:34] LABS: ALT (SGPT) 21 U/L (8-55); AST (SGOT) 42 U/L (5-34); Albumin 3.2 g/dL (3.4-4.8); Alkaline Phosphatase 86 U/L (40-110); Anion Gap 16 mmol/L (10-20); BUN (Urea Nitrogen) 37 mg/dL (8.4-25.7); Bilirubin, Total 1.3 mg/dL (0.2-1.2); CK (CPK) 235 U/L (30-200); Calc. Creatinine Clearance 0 mL/min (70-130); Calcium 8.4 mg/dL (7.8-10.44); Carbon Dioxide 16 mmol/L (23-31); Chloride 108 mmol/L (98-107); Globulin 3.4 g/dL (2.4-3.5); Glucose 171 mg/dL (80-115); Lipase 7 U/L (8-78); Potassium 3.9 mmol/L (3.5-5.1); Protein, Total 6.6 g/dL (5.8-8.1); Sodium 136 mmol/L (136-145)
[2020-12-12 12:04] LABS: CKMB 1.8 ng/mL (0-6.6)
[2020-12-12] MEDS ORDERED: Norepinephrine 8 MG/0.9% NS 250 ML ONE (12:35)
[2020-12-12 14:19] LABS: Lactic Acid 1.9 mmol/L (0.5-2.2)
== END 2020-12-12 14:44 ==
LOC: ERS 10:08
DX: T82.7XXA Infection and inflammatory reaction due to other cardiac and vascular devices, implants and grafts, initial encounter (principal); A41.9 Sepsis, unspecified organism; E66.01 Morbid (severe) obesity due to excess calories; I50.9 Heart failure, unspecified; I48.91 Unspecified atrial fibrillation; I25.10 Atherosclerotic heart disease of native coronary artery without angina pectoris; G47.33 Obstructive sleep apnea (adult) (pediatric); Z79.82 Long term (current) use of aspirin; Z79.01 Long term (current) use of anticoagulants; Z79.899 Other long term (current) drug therapy
CPT/HCPCS: 36415; 36556; 71045; 80053; 82550; 82553; 83605; 83690; 83880; 84484; 85025; 85060; 85379; 87040; 87077; 87149; 87186; 93005; 96365; 96367; 96375; J0692; J3370; J3490

== ENCOUNTER → 2021-01-10 | Day surgery (SDC) | payer MEDICARE ==
[~2021-01-10] MED LIST changes: +Heparin 1,000 UNITS/ML VIAL ONE; -Iopamidol-370 76% 500 ML 1 ML ONE
== END ==
LOC: SPEC 10:34
PROVIDERS: ATTEND Physical Medicine & Rehabilitation
PROC: 06PY33Z Removal of Infusion Device from Lower Vein, Percutaneous Approach (ICD-10-PCS; principal; 2021-01-10)
PROC: 06H033Z Insertion of Infusion Device into Inferior Vena Cava, Percutaneous Approach (ICD-10-PCS; 2021-01-10)
DX: T82.524A Displacement of infusion catheter, initial encounter (principal); Z79.2 Long term (current) use of antibiotics; Z95.0 Presence of cardiac pacemaker
CPT/HCPCS: 36584; C1751

== ENCOUNTER 2021-05-25 08:39 | Outpatient (CLI) | payer MEDICARE | END 2021-05-25 08:40 | disposition home or self-care (01) | LOC: BICCT 08:39 | PROVIDERS: ATTEND Internal Medicine Hematology & Oncology | DX: C7A.019 Malignant carcinoid tumor of the small intestine, unspecified portion (principal); M47.815 Spondylosis without myelopathy or radiculopathy, thoracolumbar region; I51.7 Cardiomegaly; I70.0 Atherosclerosis of aorta; K86.89 Other specified diseases of pancreas; Z98.890 Other specified postprocedural states | CPT/HCPCS: 36415; 74177; 80053; 82565; 86316 ==

== ENCOUNTER 2021-06-23 14:56 | Outpatient (CLI) | payer MEDICARE | END 2021-06-23 14:57 | disposition home or self-care (01) | LOC: BICULT 14:56 | PROVIDERS: ATTEND Internal Medicine Hematology & Oncology | DX: R59.0 Localized enlarged lymph nodes (principal) | CPT/HCPCS: 76999 ==

== ENCOUNTER → 2021-07-26 | Day surgery (SDC) | payer MEDICARE ==
[2021-07-18 16:02] VITALS: BMI 34.7
[~2021-07-26] MED LIST changes: -Heparin 1,000 UNITS/ML VIAL ONE; +Iopamidol 370 76% 100 ML VIAL ONE
== END ==
LOC: CT 11:19
PROVIDERS: ATTEND Internal Medicine Hematology & Oncology
DX: R59.0 Localized enlarged lymph nodes (principal); Z79.01 Long term (current) use of anticoagulants; Z79.82 Long term (current) use of aspirin; Z79.899 Other long term (current) drug therapy; Z95.810 Presence of automatic (implantable) cardiac defibrillator; Z95.818 Presence of other cardiac implants and grafts
CPT/HCPCS: 71260; 82565

== ENCOUNTER 2021-09-09 09:29 | Day surgery (SDC) | payer MEDICARE ==
[2021-09-02 12:13] VITALS: BMI 34.6
== END 2021-09-09 12:02 | disposition home or self-care (01) ==
LOC: SDC 09:29
PROVIDERS: ATTEND Internal Medicine Cardiovascular Disease
DX: I48.0 Paroxysmal atrial fibrillation (principal); I08.1 Rheumatic disorders of both mitral and tricuspid valves; I70.0 Atherosclerosis of aorta; I25.10 Atherosclerotic heart disease of native coronary artery without angina pectoris; E78.2 Mixed hyperlipidemia; E11.9 Type 2 diabetes mellitus without complications; I50.22 Chronic systolic (congestive) heart failure; E78.00 Pure hypercholesterolemia, unspecified; K21.9 Gastro-esophageal reflux disease without esophagitis; G47.33 Obstructive sleep apnea (adult) (pediatric); Z79.02 Long term (current) use of antithrombotics/antiplatelets; Z79.82 Long term (current) use of aspirin; Z79.899 Other long term (current) drug therapy; Z95.1 Presence of aortocoronary bypass graft; Z95.810 Presence of automatic (implantable) cardiac defibrillator
CPT/HCPCS: 93312

== ENCOUNTER 2022-03-10 12:34 | Outpatient (CLI) | payer MEDICARE ==
[2022-03-10 13:58] LABS: #Basophils 0.1 10x3/uL (0.0-0.2); #Eosinphils 0.1 10x3/uL (0.0-0.5); #Monocytes 0.6 10x3/uL (0.0-1.1); %Basophils 0.7 % (0.0-2.0); %Eosinophils 1.2 % (0.0-6.0); %Lymphocytes 23.9 % (18.0-47.0); %Monocytes 8.4 % (0.0-10.0); %Neutrophils 65.3 % (40.0-75.0); Hemoglobin 13.4 g/dL (13.5-17.5); Mean Corpuscular HGB CONC 32.8 g/dL (32.0-36.0); Mean Corpuscular Hemoglobin 29.2 pg (27.0-33.0); Mean Corpuscular Volume 89.1 fl (81.2-95.1); Mean Platelet Volume 9.2 fl (7.4-10.4); Platelet Count 185 10x3/uL (150-450); RBC Distribution Width 13.2 % (11.5-14.5); Red Blood Cell (RBC) Count 4.59 10x6/uL (4.32-5.72); White Blood Cell (WBC) Count 7.6 10x3/uL (3.5-10.5)
[2022-03-10 14:24] LABS: Anion Gap 14 mmol/L (10-20); BUN (Urea Nitrogen) 25 mg/dL (8.4-25.7); Calc. Creatinine Clearance 0 mL/min (70-130); Calcium 9.8 mg/dL (7.8-10.44); Carbon Dioxide 22 mmol/L (23-31); Chloride 106 mmol/L (98-107); Estimated GFR 60; Glucose 99 mg/dL (80-115); Potassium 4.7 mmol/L (3.5-5.1); Sodium 137 mmol/L (136-145)
== END 2022-03-10 12:35 | disposition home or self-care (01) ==
LOC: LABBT 12:34
PROVIDERS: ATTEND Internal Medicine Cardiovascular Disease
DX: Z01.812 Encounter for preprocedural laboratory examination (principal); I48.11 Longstanding persistent atrial fibrillation; Z20.822 Contact with and (suspected) exposure to COVID-19
CPT/HCPCS: 80048; 85025; 87811

== ENCOUNTER 2022-03-15 05:59 | Day surgery (SDC) | payer MEDICARE ==
[2022-03-09 09:58] VITALS: BMI 33.5
[2022-03-15] MEDS ORDERED: PROPOFOL 200 MG/20 ML VIAL ONE (08:00)
[2022-03-15] MEDS ORDERED: Lidocaine 1% MPF 2 ML VIAL ONE (08:00)
== END 2022-03-15 09:53 | disposition home or self-care (01) ==
LOC: SDC 05:59
PROVIDERS: ATTEND Internal Medicine Cardiovascular Disease
PROC: B246ZZ4 Ultrasonography of Right and Left Heart, Transesophageal (ICD-10-PCS; principal; 2022-03-15)
PROC: 5A2204Z Restoration of Cardiac Rhythm, Single (ICD-10-PCS; 2022-03-15)
DX: I48.19 Other persistent atrial fibrillation (principal); I11.0 Hypertensive heart disease with heart failure; I50.22 Chronic systolic (congestive) heart failure; I08.1 Rheumatic disorders of both mitral and tricuspid valves; I70.0 Atherosclerosis of aorta; E78.2 Mixed hyperlipidemia; I25.10 Atherosclerotic heart disease of native coronary artery without angina pectoris; G47.33 Obstructive sleep apnea (adult) (pediatric); E11.9 Type 2 diabetes mellitus without complications; E78.00 Pure hypercholesterolemia, unspecified; K21.9 Gastro-esophageal reflux disease without esophagitis; I49.3 Ventricular premature depolarization; E66.01 Morbid (severe) obesity due to excess calories; Z68.33 Body mass index [BMI] 33.0-33.9, adult; Z79.02 Long term (current) use of antithrombotics/antiplatelets; Z79.82 Long term (current) use of aspirin; Z79.899 Other long term (current) drug therapy; Z95.1 Presence of aortocoronary bypass graft; Z95.818 Presence of other cardiac implants and grafts
CPT/HCPCS: 92960; 93312; J2704

== ENCOUNTER 2022-05-24 09:04 | Outpatient (CLI) | payer MEDICARE ==
[2022-05-24] MEDS ORDERED: Iopamidol-370 76% 500 ML 1 ML ONE (11:11)
== END 2022-05-24 09:05 | disposition home or self-care (01) ==
LOC: BICCT 09:04
PROVIDERS: ATTEND Internal Medicine Hematology & Oncology
DX: C7A.019 Malignant carcinoid tumor of the small intestine, unspecified portion (principal)
CPT/HCPCS: 36415; 74177; 80053; 82565; 86316

== ENCOUNTER 2023-05-22 09:28 | Outpatient (CLI) | payer MEDICARE | END 2023-05-22 09:29 | disposition home or self-care (01) | LOC: BICCT 09:28 | PROVIDERS: ATTEND Internal Medicine Hematology & Oncology | DX: D3A.8 Other benign neuroendocrine tumors (principal); K80.20 Calculus of gallbladder without cholecystitis without obstruction; C7A.019 Malignant carcinoid tumor of the small intestine, unspecified portion | CPT/HCPCS: 74177; 80053; 82565; 86316 ==

== ENCOUNTER 2024-05-20 08:10 | Outpatient (CLI) | payer MEDICARE ==
[2024-05-20] MEDS ORDERED: Iopamidol 370 76% 100 ML VIAL ONE (11:32)
== END 2024-05-20 08:11 | disposition home or self-care (01) ==
LOC: BICCT 08:10
PROVIDERS: ATTEND Internal Medicine Hematology & Oncology
DX: C7A.019 Malignant carcinoid tumor of the small intestine, unspecified portion (principal); R19.8 Other specified symptoms and signs involving the digestive system and abdomen
CPT/HCPCS: 74177

== ENCOUNTER 2024-06-25 13:02 | Outpatient (CLI) | payer MEDICARE, OTHER | END 2024-06-25 13:03 | disposition home or self-care (01) | LOC: NM 13:02 | PROVIDERS: ATTEND Internal Medicine Hematology & Oncology | DX: C7A.019 Malignant carcinoid tumor of the small intestine, unspecified portion (principal) | CPT/HCPCS: 78802; 78803; A4641; A9572 ==

== ENCOUNTER 2025-05-20 08:35 | Outpatient (CLI) | payer MEDICARE, OTHER ==
[2025-05-20] MEDS ORDERED: Iopamidol 370 76% 100 ML VIAL ONE (10:33)
== END 2025-05-20 08:36 | disposition home or self-care (01) ==
LOC: CT 08:35
PROVIDERS: ATTEND Internal Medicine Hematology & Oncology
DX: C7A.019 Malignant carcinoid tumor of the small intestine, unspecified portion (principal)
CPT/HCPCS: 74177; Q9967

== ENCOUNTER 2025-06-02 06:11 | Day surgery (SDC) | payer MEDICARE ==
[2025-05-29 16:12] VITALS: BMI 34.6
[2025-06-02] MEDS ORDERED: PHENYLEPHRINE-NS 100 MCG/ML 10 ML SYRINGE ONE (07:26)
== END 2025-06-02 09:24 | disposition home or self-care (01) ==
LOC: SDC 06:11
PROVIDERS: ATTEND Internal Medicine Gastroenterology
PROC: 0DBM8ZZ Excision of Descending Colon, Via Natural or Artificial Opening Endoscopic (ICD-10-PCS; principal; 2025-06-02)
DX: Z12.11 Encounter for screening for malignant neoplasm of colon (principal); D12.4 Benign neoplasm of descending colon; I11.0 Hypertensive heart disease with heart failure; I50.9 Heart failure, unspecified; Z79.82 Long term (current) use of aspirin; Z79.899 Other long term (current) drug therapy; Z95.810 Presence of automatic (implantable) cardiac defibrillator; Z95.818 Presence of other cardiac implants and grafts; Z86.0101 Personal history of adenomatous and serrated colon polyps
CPT/HCPCS: 88305